=== PATIENT | female | born 1965 | race Caucasian/White ===

== ENCOUNTER 2016-07-06 11:11 | Inpatient (IN) | payer OTHER ==
[2016-07-06 11:39] VITALS: BMI 22.4
--- NOTE | 2016-07-06 14:34 | HP ---
COWS - Scale Resting Pulse: 0= [place] 80 or Below Sweatin=Flushed/Facial Moisture Restless Observation: 1= Difficult to Sit Still Pupil Size: 0= Normal to Room Light Bone or Joint Aches: 2= Severe Diffuse Aches Runny Nose/ Eye Tearin= Runny Nose/Eyes GI Upset > 30mins: 2= Nausea/Diarrhea Tremor Observation: 2= Slight Tremor Visible Yawning Observation: 2= >3x During Session Anxiety or Irritability: 2=Irritable/Anxious Goose Flesh Skin: 3=Piloerection COWS Score: 18 CIWA Score - CIWA Score Nausea/Vomitin-Mild Nausea/No Vomiting Muscle Tremors: 4-Moderate,w/Arms Extend Anxiety: 4-Mod. Anxious/Guarded Agitation: 4-Moderately Restless Paroxysmal Sweats: 3 Orientation: 0-Oriented Tacttile Disturbances: 0-None Auditory Disturbances: 0-None Visual Disturbances: 0-None Headache: 1-Very Mild CIWA-Ar Total Score: 17 Admission ROS S - HPI Chief Complaint: I am here to detox. Allergies/Adverse Reactions: Allergies Allergy/AdvReac Type Severity Reaction Status Date / Time No Known Allergies Allergy Verified 07/06/16 14:01 History of Present Illness: pt is a 51yr old female with a history of heroin and alcohol dependence seeking detox for treatment. Exam Limitations: No Limitations - Ebola screening Have you traveled outside of the country in the last 21 days: No Have you had contact with anyone from an Ebola affected area: No Have you been sick,other than usual withdrawal symptoms: No Do you have a fever: No - Review of Systems Constitutional: Chills, Diaphoresis, Loss of Appetite, Night Sweats, Changes in sleep, Unintentional Wgt. Loss EENT: reports: Tearing, Nose Congestion Respiratory: reports: No Symptoms reported Cardiac: reports: No Symptoms Reported GI: reports: Diarrhea, Poor Appetite, Poor Fluid Intake, Indigestion : reports: No Symptoms Reported Musculoskeletal: reports: Back Pain, Joint Pain, Muscle Pain Integumentary: reports: Flushing Neuro: reports: Headache, Tingling, Tremors Endocrine: reports: Excessive Sweating, Flushing Hematology: reports: Anemia Psychiatric: reports: Judgement Intact, Mood/Affect Appropiate, Orientated x3, Agitated, Anxious Other Systems: Reviewed and Negative Patient History - Patient Medical History Hx Anemia: No Hx Asthma: No Hx Chronic Obstructive Pulmonary Disease (COPD): No Hx Cancer: No Hx Cardiac Disorders: No Hx Congestive Heart Failure: No Hx Hypertension: No Hx Hypercholesterolemia: No Hx Pacemaker: No HX Cerebrovascular Accident: No Hx Seizures: No Hx Dementia: No Hx Diabetes: No Hx Gastrointestinal Disorders: No Hx Liver Disease: No Hx Genitourinary Disorders: No Hx Sexually Transmitted Disorders: No Hx Renal Disease (ESRD): No Hx Thyroid Disease: No Hx Human Immunodeficiency Virus (HIV): Yes (1995 currently taking her medication ) Hx Hepatitis C: Yes Hx Depression: Yes Hx Suicide Attempt: No Hx Bipolar Disorder: No Hx Schizophrenia: No - Patient Surgical History Past Surgical History: No Hx Neurologic Surgery: No Hx Cataract Extraction: No Hx Cardiac Surgery: No Hx Lung Surgery: No Hx Breast Surgery: No Hx Breast Biopsy: No Hx Abdominal Surgery: No Hx Appendectomy: No Hx Cholecystectomy: No Hx Genitourinary Surgery: No Hx Section: No Hx Orthopedic Surgery: No Hx Hysterectomy: No Anesthesia Reaction: No - PPD History Previous Implant?: Yes Documented Results: Negative w/o proof Implanted On Prior R Admission?: Yes Results: 0 mm PPD to be Administered?: Yes - Reproductive History Last Menstrual Period: 11/09/11 Patient : No - Smoking Cessation Smoking history: Current every day smoker Have you smoked in the past 12 months: Yes Aproximately how many cigarettes per day: 10 Cigars Per Day: 0 Hx Chewing Tobacco Use: No Initiated information on smoking cessation: Yes 'Breaking Loose' booklet given: 07/06/16 - Substance & Tx. History Hx Alcohol Use: Yes Hx Substance Use: Yes Substance Use Type: Alcohol, Heroin, Tranquilizers - Substances Abused Heroin Route: Injection Frequency: Daily Amount used: 4 bags Age of first use: 30 Date of Last Use: 07/06/16 Crack Route: Smoking Frequency: Daily Amount used: $20-40 Age of first use: 30 Date of Last Use: 07/05/16 Alcohol-beer/vodka Route: Oral Frequency: Daily Amount used: 10 (22 oz.)/1 pt. Age of first use: 13 Date of Last Use: 07/06/16 Family Disease History - Family Disease History Family Disease History: Other: Father (alcohol), Mother (heroin) Admission Physical Exam [facility] - Vital Signs Vital Signs: Vital Signs - 24 hr 07/06/16 11:31 Temperature 98.6 F Pulse Rate 66 Respiratory 18 Rate Blood Pressure 97/67 - Physical General Appearance: Yes: Appropriately Dressed, Moderate Distress, Thin, Tremorous, Irritable, Sweating, Anxious HEENTM: Yes: Normal Voice, Nasal Congestion, Rhinorrhea Respiratory: Yes: Lungs Clear, Normal Breath Sounds, No Respiratory Distress Neck: Yes: No masses,lesions,Nodules Breast: Yes: Within Normal Limits Cardiology: Yes: Regular Rhythm, Regular Rate, S1, S2 Abdominal: Yes: Normal Bowel Sounds, Soft Genitourinary: Yes: Within Normal Limits Back: Yes: Normal Inspection Musculoskeletal: Yes: full range of Motion Extremities: Yes: Normal Capillary Refill, Non-Tender, Tremors Neurological: Yes: Fully Oriented, Alert, Normal Mood/Affect Integumentary: Yes: Normal Color, Diaphoresis, Track [place] Lymphatic: Yes: Within Normal Limits - Diagnostic (1) Cocaine dependence Current Visit: Yes Status: Chronic (2) Alcohol dependence with withdrawal Current Visit: Yes Status: Chronic Qualifiers: Complication of substance-induced condition: uncomplicated Qualified Code(s): F10.230 - Alcohol dependence with withdrawal, uncomplicated (3) Hepatitis C Current Visit: Yes Status: Chronic Qualifiers: Viral hepatitis chronicity: chronic Hepatic coma status: without hepatic coma Qualified Code(s): B18.2 - Chronic viral hepatitis C (4) Nicotine dependence Current Visit: Yes Status: Chronic (5) Opioid dependence, uncomplicated Current Visit: Yes Status: Chronic (6) HIV disease Current Visit: Yes Status: Chronic Comment: currently on antiviral medication; pt did not bring them she has at home. Cleared for Admission [facility] - Detox or Rehab [facility] Level of Care: Medically Managed Detox Regimen/Protocol: Methadone/Librium [facility] Breath Alcohol Content Breath Alcohol Content: 0.007 Urine Pregancy Test - Result Urine Test Results: Negative- NO Line Present Urine Drug Screen - Results Drug Screen Negative: No Urine Drug Screen Results: CAROLYN-Cocaine, OPI-Opiates
[2016-07-06] MEDS ORDERED: guaiFENesin/D-METHORPHAN HB 10 ML UNIT-DOSE CUPS PO PRN (14:39)
[2016-07-06] MEDS ORDERED: ACETAMINOPHEN 325 MG TABLET (FP) PO PRN (14:39)
[2016-07-06] MEDS ORDERED: MAGNESIUM CITRATE 300 ML BOTTLE PO PRN (14:39)
[2016-07-06] MEDS ORDERED: IBUPROFEN 400 MG TABLET (FP) PO PRN (14:39)
[2016-07-06] MEDS ORDERED: MAG HYDROX/AL HYDROX/SIMETH 30 ML UNIT-DOSE CUP PO PRN (14:39)
[2016-07-06] MEDS ORDERED: chlordiazePOXIDE HCL 25 MG CAPSULE PO PRN (14:39)
[2016-07-06] MEDS ORDERED: MAGNESIUM HYDROX 2400MG/30ML ORAL SUSPENSION 30 ML CUP PO PRN (14:39)
[2016-07-06] MEDS ORDERED: MENTHOL/PHENOL 1 EACH UD MM PRN (14:39)
[2016-07-06] MEDS ORDERED: diphenhydrAMINE HCL 50 MG CAPSULE PO PRN (14:39)
[2016-07-06] MEDS ORDERED: NICOTINE POLACRILEX 4 MG GUM BUC PRN (14:39)
[2016-07-06] MEDS ORDERED: hydrOXYzine PAMOATE 50 MG CAPSULE (FP) PO PRN (14:39)
[2016-07-06] MEDS ORDERED: LOPERAMIDE HCL 2 MG CAPSULE PO PRN (14:39)
[2016-07-06] MEDS ORDERED: P-EPHED 60MG/TRIPROLIDI 2.5MG TABLET PO PRN (14:39)
[2016-07-06] MEDS ORDERED: chlordiazePOXIDE HCL 25 MG CAPSULE PO ONE (15:15)
[2016-07-06] MEDS ORDERED: METHADONE HCL 10 MG TABLET (FOR DETOX USE ONLY) PO ONE ×2 (15:16→23:00)
--- NOTE | 2016-07-06 15:57 | EKG ---
Test Reason : Blood Pressure : / mmHG Vent. Rate : 062 BPM Atrial Rate : 062 BPM P-R Int : 150 ms QRS Dur : 086 ms QT Int : 416 ms P-R-T Axes : 062 050 056 degrees QTc Int : 422 ms NORMAL SINUS RHYTHM WITH SINUS ARRHYTHMIA NORMAL ECG NO PREVIOUS ECGS AVAILABLE Confirmed by KERMIT RODRIGUEZ MD ([id number]) on 07/06/2016 3:56:59 PM Referred By: Confirmed By:KERMIT RODRIGUEZ MD
[2016-07-06] MEDS: chlordiazePOXIDE HCL 25 MG CAPSULE PO SCH ×2 (17:50→22:20)
[2016-07-06 18:40] LABS: URINE APPEARANCE SLCLOUDY; URINE BILIRUBIN NEGATIVE (NEGATIVE); URINE BLOOD NEGATIVE (NEGATIVE); URINE COLOR YELLOW; URINE GLUCOSE (UA) NEGATIVE (NEGATIVE); URINE KETONE NEGATIVE (NEGATIVE); URINE NITRITE NEGATIVE (NEGATIVE); URINE PROTEIN NEGATIVE (NEGATIVE); URINE UROBILINOGEN NEGATIVE E.U./dl (0.2-1.0)
[2016-07-06 18:46] LABS: URINE LEUK ESTERASE 2+ (NEGATIVE)
[2016-07-06 19:05] LABS: URINE MUCUS RARE; URINE RBC 7 /hpf (0-3); URINE WBC 63 /hpf (3-5)
[2016-07-06] MEDS: THIAMINE HCL 100 MG TABLET (FP) PO SCH (22:20)
[2016-07-07] MEDS: chlordiazePOXIDE HCL 25 MG CAPSULE PO SCH ×4 (05:53→22:26)
[2016-07-07] MEDS ORDERED: ATAZANAVIR SO4 300 MG CAPSULE PO SCH (08:00)
[2016-07-07] MEDS ORDERED: EMTRICITABINE 200MG/TENOFOVIR 300MG PO SCH (08:00)
[2016-07-07] MEDS ORDERED: RITONAVIR 100 MG TABLET PO SCH (08:00)
[2016-07-07 09:57] LABS: MCH 29.5 pg (25.7-33.7); MCHC 32.3 g/dl (32.0-36.0); MEAN CELL VOLUME 91.2 fl (80-96); MEAN PLT VOLUME 10.4 fl (7.5-11.1); PLATELET COUNT 134 K/MM3 (134-434); RDW 14.2 % (11.6-15.6); WHITE BLOOD COUNT 3.9 K/mm3 (4.0-10.0)
[2016-07-07] MEDS ORDERED: METHADONE HCL 10 MG TABLET (FOR DETOX USE ONLY) PO SCH (10:00)
[2016-07-07 10:26] LABS: ALBUMIN 3.2 g/dl (3.4-5.0); ANION GAP 7 (8-16); BILIRUBIN,TOTAL 0.6 mg/dL (0.2-1.0); CO2 29 mmol/L (21-32); GLUCOSE,RANDOM 85 mg/dL (74-106); SGOT/AST 90 U/L (15-37); SGPT/ALT 57 U/L (12-78); TOT PROT 8.7 g/dl (6.4-8.2)
[2016-07-07] MEDS: RITONAVIR 100 MG TABLET PO SCH (10:27)
[2016-07-07] MEDS: NICOTINE 21 MG/24 HOURS TOPICAL PATCH TD SCH (10:27)
[2016-07-07] MEDS: PRENATAL VITAMINS W/ FOLIC ACID TABLET (FP) PO SCH (10:28)
[2016-07-07] MEDS: EMTRICITABINE 200MG/TENOFOVIR 300MG PO SCH (10:28)
[2016-07-07] MEDS: ATAZANAVIR SO4 300 MG CAPSULE PO SCH (10:28)
[2016-07-07 10:29] LABS: ALK PHOS 98 U/L (45-117); CALCIUM 8.9 mg/dL (8.5-10.1); CREATININE 0.8 mg/dL (0.55-1.02)
--- NOTE | 2016-07-07 10:56 | PN ---
[facility] CIWA - CIWA Score Nausea/Vomitin-No Nausea/No Vomiting Muscle Tremors: 4-Moderate,w/Arms Extend Anxiety: 3 Agitation: 4-Moderately Restless Paroxysmal Sweats: 3 Orientation: 0-Oriented Tacttile Disturbances: 0-None Auditory Disturbances: 0-None Visual Disturbances: 0-None Headache: 1-Very Mild CIWA-Ar Total Score: 15 [facility] COWS - Scale Resting Pulse: 0= [place] 80 or Below Sweatin=Flushed/Facial Moisture Restless Observation: 1= Difficult to Sit Still Pupil Size: 0= Normal to Room Light Bone or Joint Aches: 2= Severe Diffuse Aches Runny Nose/ Eye Tearin= Nasal Congestion GI Upset > 30mins: 1= Stomach Cramp Tremor Observation of Outstretched Hands: 2= Slight Tremor Visible Yawning Observation: 2= >3x During Session Anxiety or Irritability: 2=Irritable/Anxious Goose Flesh Skin: 3=Piloerection COWS Score: 16 S Progress Note (SOAP) Subjective: tired sweats shakes chills interrupted sleep body aches Objective: 07/07/16 10:55 Vital Signs Temperature 97.5 F L 07/07/16 10:00 Pulse Rate 64 07/07/16 10:00 Respiratory Rate 18 07/07/16 10:00 Blood Pressure 107/80 07/07/16 10:00 O2 Sat by Pulse Oximetry (%) Laboratory Tests 07/06/16 07/07/16 07/07/16 13:00 06:20 06:20 WBC 3.9 L RBC 4.15 Hgb 12.2 D Hct 37.9 MCV 91.2 MCHC 32.3 RDW 14.2 Plt Count 134 MPV 10.4 Sodium 138 Potassium 4.7 Chloride 102 Carbon Dioxide 29 Anion Gap 7 L BUN 6 L D Creatinine 0.8 Creat Clearance w eGFR > 60 Random Glucose 85 Calcium 8.9 Total Bilirubin 0.6 D AST 90 H D ALT 57 D Alkaline Phosphatase 98 D Total Protein 8.7 H Albumin 3.2 L D Urine Color Yellow Urine Appearance Slcloudy Urine pH 5.0 D Ur Specific [place] 1.012 Urine Protein Negative Urine Glucose (UA) Negative Urine Ketones Negative Urine Blood Negative Urine Nitrite Negative Urine Bilirubin Negative Urine Urobilinogen Negative Ur Leukocyte Esterase 2+ H D Urine RBC 7 Urine WBC 63 Ur Epithelial Cells Moderate Urine Mucus Rare awake/alert lying in bed no acute distress Assessment: 07/07/16 10:56 withdrawal sx Plan: continue detox increase fluids
--- NOTE | 2016-07-07 16:33 | CONSULT ---
[facility] Psychiatric Consult - Data Date of interview: 07/07/16 Admission source: [facility] Identifying data: Readmission to [facility] for this 51 y/o female seeking detox treatment for heroin,cocaine (crack) and alcohol dependence.Patient is single without children,domiciled,unemployed and supported on [facility] benefits. Substance Abuse History: - Smoking Cessation. Smoking history: Current every day smoker. Have you smoked in the past 12 months: Yes. Aproximately how many cigarettes per day: 10. Cigars Per Day: 0. Hx Chewing Tobacco Use: No. Initiated information on smoking cessation: Yes. 'Breaking Loose' booklet given : 07/06/16. - Substance & Tx. History. Hx Alcohol Use: Yes. Hx Substance Use : Yes. Substance Use Type: Alcohol, Heroin, Tranquilizers. - Substances Abused. Heroin. Route: Injection. Frequency: Daily. Amount used: 4 bags. Age of first use: 30. Date of Last Use: 07/06/16. Crack. Route: Smoking. Frequency: Daily. Amount used: $20-40. Age of first use: 30. Date of Last Use: 07/05/16. Alcohol-beer/vodka. Route: Oral. Frequency: Daily. Amount used: 10 (22 oz.)/1 pt. Age of first use: 13. Date of Last Use: 07/06. Confirmed by patient. Medical History: HIV infection since 1995 (on ART agents) and hepatitis C. Psychiatric History: Treated for many years under the diagnosis of MDD but never hospitalized.Ms Hood used to attend the [facility] clinic until her transfer to a new venue,the [facility],in the [place].Prescribed lexapro 20 mg/day.Patient denies history of suicide attempts. Physical/Sexual Abuse/Trauma History: Patient denies. Additional Comment: Urine Drug Screen Results: CAROLYN-Cocaine, OPI-Opiates.Noted. Mental Status Exam - Mental Status Exam Alert and Oriented to: Time, Place, Person Cognitive Function: Good Patient Appearance: Well Groomed Mood: Hopeful, Euthymic Affect: Appropriate, Normal Range Patient Behavior: Appropriate, Cooperative Speech Pattern: Clear, Appropriate Voice Loudness: Normal Thought Process: Goal Oriented Thought Disorder: Not Present Hallucinations: Denies Suicidal Ideation: Denies Homicidal Ideation: Denies Insight/Judgement: Fair Sleep: Poorly, Difficulty falling asleep Appetite: Good Muscle strength/Tone: Normal Gait/Station: Normal Psychiatric Findings - Problem List ([place] 1, 2,3) (1) Alcohol dependence with withdrawal Current Visit: Yes Status: Acute Qualifiers: Complication of substance-induced condition: uncomplicated Qualified Code(s): F10.230 - Alcohol dependence with withdrawal, uncomplicated (2) Cocaine dependence Current Visit: Yes Status: Acute (3) Opioid dependence, uncomplicated Current Visit: Yes Status: Acute (4) Nicotine dependence Current Visit: Yes Status: Acute (5) MDD (major depressive disorder) Current Visit: Yes Status: Chronic (6) HIV disease Current Visit: Yes Status: Chronic Comment: currently on antiviral medication; pt did not bring them she has at home. (7) Hepatitis C Current Visit: Yes Status: Chronic Qualifiers: Viral hepatitis chronicity: chronic Hepatic coma status: without hepatic coma Qualified Code(s): B18.2 - Chronic viral hepatitis C (8) h/o herpes genital Current Visit: Yes Status: Chronic (9) Insomnia Current Visit: Yes Status: Acute - Initial Treatment Plan Initial Treatment Plan: Psychoeducation.Detoxification.Lexapro 20 mg po daily.Side effects/benefits explained to patient.She is in agreement with this careplan.Observation.
[2016-07-07 18:52] LABS: URINE APPEARANCE CLEAR; URINE BILIRUBIN NEGATIVE (NEGATIVE); URINE BLOOD NEGATIVE (NEGATIVE); URINE COLOR LTYELLOW; URINE GLUCOSE (UA) NEGATIVE (NEGATIVE); URINE KETONE NEGATIVE (NEGATIVE); URINE NITRITE NEGATIVE (NEGATIVE); URINE PROTEIN NEGATIVE (NEGATIVE); URINE UROBILINOGEN NEGATIVE E.U./dl (0.2-1.0)
[2016-07-07 19:20] LABS: URINE LEUK ESTERASE 2+ (NEGATIVE)
[2016-07-07 19:22] LABS: URINE MUCUS RARE; URINE RBC 7 /hpf (0-3); URINE WBC 14 /hpf (3-5)
[2016-07-07] MEDS: ZOLPIDEM TARTRATE 5 MG TABLET PO PRN (22:26)
[2016-07-07] MEDS: THIAMINE HCL 100 MG TABLET (FP) PO SCH (22:26)
[2016-07-08] MEDS: chlordiazePOXIDE HCL 25 MG CAPSULE PO SCH ×2 (05:51→10:05)
[2016-07-08] MEDS: ATAZANAVIR SO4 300 MG CAPSULE PO SCH (10:03)
[2016-07-08] MEDS: NICOTINE 21 MG/24 HOURS TOPICAL PATCH TD SCH (10:03)
[2016-07-08] MEDS: METHADONE HCL 5 MG TABLET (FOR DETOX USE ONLY) PO SCH (10:03)
[2016-07-08] MEDS: PRENATAL VITAMINS W/ FOLIC ACID TABLET (FP) PO SCH (10:03)
[2016-07-08] MEDS: ESCITALOPRAM OXALATE 20 MG TABLET (FP) PO SCH (10:03)
[2016-07-08] MEDS: RITONAVIR 100 MG TABLET PO SCH (10:04)
[2016-07-08] MEDS: EMTRICITABINE 200MG/TENOFOVIR 300MG PO SCH (10:04)
[2016-07-08] MEDS ORDERED: LIDOCAINE 5% TOPICAL PATCH TP ONE (11:46)
--- NOTE | 2016-07-08 11:46 | PN ---
[facility] CIWA - CIWA Score Nausea/Vomitin Muscle Tremors: 2 Anxiety: 3 Agitation: 2 Paroxysmal Sweats: 3 Orientation: 0-Oriented Tacttile Disturbances: 2-Mild Itch/Numbness/Burn Auditory Disturbances: 0-None Visual Disturbances: 0-None Headache: 0-None Present CIWA-Ar Total Score: 14 S COWS - Scale Resting Pulse: 0= [place] 80 or Below Sweatin=Flushed/Facial Moisture Restless Observation: 1= Difficult to Sit Still Pupil Size: 1= Pupils >than Normal Bone or Joint Aches: 2= Severe Diffuse Aches Runny Nose/ Eye Tearin= Nasal Congestion GI Upset > 30mins: 1= Stomach Cramp Tremor Observation of Outstretched Hands: 1= Tremor [place], Not Seen Yawning Observation: 0= None Anxiety or Irritability: 1=Feels Anxious/Irritable Goose Flesh Skin: 0=Smooth Skin COWS Score: 10 [facility] Progress Note (SOAP) Subjective: tired, sweaty, nausea, lbp Objective: 07/08/16 11:44 Vital Signs Temperature 98.1 F 07/08/16 10:18 Pulse Rate 77 07/08/16 10:18 Respiratory Rate 18 07/08/16 10:18 Blood Pressure 95/63 07/08/16 10:18 O2 Sat by Pulse Oximetry (%) Laboratory Tests 07/06/16 07/07/16 07/07/16 13:00 06:20 06:20 WBC 3.9 L RBC 4.15 Hgb 12.2 D Hct 37.9 MCV 91.2 MCHC 32.3 RDW 14.2 Plt Count 134 MPV 10.4 Sodium 138 Potassium 4.7 Chloride 102 Carbon Dioxide 29 Anion Gap 7 L BUN 6 L D Creatinine 0.8 Creat Clearance w eGFR > 60 Random Glucose 85 Calcium 8.9 Total Bilirubin 0.6 D AST 90 H D ALT 57 D Alkaline Phosphatase 98 D Total Protein 8.7 H Albumin 3.2 L D Urine Color Yellow Urine Appearance Slcloudy Urine pH 5.0 D Ur Specific [place] 1.012 Urine Protein Negative Urine Glucose (UA) Negative Urine Ketones Negative Urine Blood Negative Urine Nitrite Negative Urine Bilirubin Negative Urine Urobilinogen Negative Ur Leukocyte Esterase 2+ H D Urine RBC 7 Urine WBC 63 Ur Epithelial Cells Moderate Urine Mucus Rare RPR Titer 07/07/16 07/07/16 06:20 17:30 WBC RBC Hgb Hct MCV MCHC RDW Plt Count MPV Sodium Potassium Chloride Carbon Dioxide Anion Gap BUN Creatinine Creat Clearance w eGFR Random Glucose Calcium Total Bilirubin AST ALT Alkaline Phosphatase Total Protein Albumin Urine Color Ltyellow Urine Appearance Clear Urine pH 6.0 Ur Specific [place] 1.006 Urine Protein Negative Urine Glucose (UA) Negative Urine Ketones Negative Urine Blood Negative Urine Nitrite Negative Urine Bilirubin Negative Urine Urobilinogen Negative Ur Leukocyte Esterase 2+ H Urine RBC 7 Urine WBC 14 Ur Epithelial Cells Few Urine Mucus Rare RPR Titer Nonreactive pt aox3 in nad lying in bed . Assessment: 07/08/16 11:45 withdrawal sx's lbp Plan: cont. detox increase fluids motrin ptrn lidocaine patch
[2016-07-08] MEDS: chlordiazePOXIDE 5 MG CAPSULE PO SCH ×2 (17:27→22:20)
[2016-07-08] MEDS: THIAMINE HCL 100 MG TABLET (FP) PO SCH (22:20)
[2016-07-08] MEDS: ZOLPIDEM TARTRATE 5 MG TABLET PO PRN (22:21)
[2016-07-09] MEDS: chlordiazePOXIDE 5 MG CAPSULE PO SCH ×2 (05:09→10:42)
[2016-07-09] MEDS: ESCITALOPRAM OXALATE 20 MG TABLET (FP) PO SCH (10:41)
[2016-07-09] MEDS: PRENATAL VITAMINS W/ FOLIC ACID TABLET (FP) PO SCH (10:41)
[2016-07-09] MEDS: NICOTINE 21 MG/24 HOURS TOPICAL PATCH TD SCH (10:42)
[2016-07-09] MEDS: METHADONE HCL 5 MG TABLET (FOR DETOX USE ONLY) PO SCH (10:42)
[2016-07-09] MEDS: ATAZANAVIR SO4 300 MG CAPSULE PO SCH (10:42)
[2016-07-09] MEDS: RITONAVIR 100 MG TABLET PO SCH (10:43)
[2016-07-09] MEDS: EMTRICITABINE 200MG/TENOFOVIR 300MG PO SCH (10:43)
[2016-07-09] MEDS: LIDOCAINE 5% TOPICAL PATCH TP SCH (10:46)
--- NOTE | 2016-07-09 10:47 | PN ---
S Progress Note (SOAP) Subjective: ALERT,IRRITABLE,ANXIOUS,PAIN IN THE BODY AND BACK,TREMOR Objective: 07/09/16 10:45 Vital Signs Temperature 98.1 F 07/09/16 10:15 Pulse Rate 73 07/09/16 10:15 Respiratory Rate 18 07/09/16 10:15 Blood Pressure 98/59 07/09/16 10:15 O2 Sat by Pulse Oximetry (%) EKG NSR WITH SINUS ARRHYTHMIA Laboratory Last Values WBC 3.9 K/mm3 (4.0-10.0) L 07/07/16 06:20 RBC 4.15 M/mm3 (3.60-5.2) 07/07/16 06:20 Hgb 12.2 GM/dL (10.7-15.3) D 07/07/16 06:20 Hct 37.9 % (32.4-45.2) 07/07/16 06:20 MCV 91.2 fl (80-96) 07/07/16 06:20 MCHC 32.3 g/dl (32.0-36.0) 07/07/16 06:20 RDW 14.2 % (11.6-15.6) 07/07/16 06:20 Plt Count 134 K/MM3 (134-434) 07/07/16 06:20 MPV 10.4 fl (7.5-11.1) 07/07/16 06:20 Sodium 138 mmol/L (136-145) 07/07/16 06:20 Potassium 4.7 mmol/L (3.5-5.1) 07/07/16 06:20 Chloride 102 mmol/L (98-107) 07/07/16 06:20 Carbon Dioxide 29 mmol/L (21-32) 07/07/16 06:20 Anion Gap 7 (8-16) L 07/07/16 06:20 BUN 6 mg/dL (7-18) L D 07/07/16 06:20 Creatinine 0.8 mg/dL (0.55-1.02) 07/07/16 06:20 Creat Clearance w eGFR > 60 (>60) 07/07/16 06:20 Random Glucose 85 mg/dL (74-106) 07/07/16 06:20 Calcium 8.9 mg/dL (8.5-10.1) 07/07/16 06:20 Total Bilirubin 0.6 mg/dL (0.2-1.0) D 07/07/16 06:20 AST 90 U/L (15-37) H D 07/07/16 06:20 ALT 57 U/L (12-78) D 07/07/16 06:20 Alkaline Phosphatase 98 U/L (45-117) D 07/07/16 06:20 Total Protein 8.7 g/dl (6.4-8.2) H 07/07/16 06:20 Albumin 3.2 g/dl (3.4-5.0) L D 07/07/16 06:20 Urine Color [place] 07/07/16 17:30 Urine Appearance Clear 07/07/16 17:30 Urine pH 6.0 (5.0-8.0) 07/07/16 17:30 Ur Specific [place] 1.006 (1.001-1.035) 07/07/16 17:30 Urine Protein Negative (NEGATIVE) 07/07/16 17:30 Urine Glucose (UA) Negative (NEGATIVE) 07/07/16 17:30 Urine Ketones Negative (NEGATIVE) 07/07/16 17:30 Urine Blood Negative (NEGATIVE) 07/07/16 17:30 Urine Nitrite Negative (NEGATIVE) 07/07/16 17:30 Urine Bilirubin Negative (NEGATIVE) 07/07/16 17:30 Urine Urobilinogen Negative E.U./dl (0.2-1.0) 07/07/16 17:30 Ur Leukocyte Esterase 2+ (NEGATIVE) H 07/07/16 17:30 Urine RBC 7 /hpf (0-3) 07/07/16 17:30 Urine WBC 14 /hpf (3-5) 07/07/16 17:30 Ur Epithelial Cells Few /hpf (FEW) 07/07/16 17:30 Urine Mucus Rare 07/07/16 17:30 RPR Titer Nonreactive (NONREACTIVE) 07/07/16 06:20 Assessment: 07/09/16 10:46 WITHDRAWAL SYMPTOM Plan: CONTINUE DETOX,ENCOURAGE ORAL FLUID,REPEAT UA
[2016-07-09 16:49] LABS: URINE APPEARANCE CLEAR; URINE BILIRUBIN NEGATIVE (NEGATIVE); URINE BLOOD NEGATIVE (NEGATIVE); URINE COLOR YELLOW; URINE GLUCOSE (UA) NEGATIVE (NEGATIVE); URINE KETONE NEGATIVE (NEGATIVE); URINE NITRITE NEGATIVE (NEGATIVE); URINE PROTEIN NEGATIVE (NEGATIVE); URINE UROBILINOGEN NEGATIVE E.U./dl (0.2-1.0)
[2016-07-09] MEDS: chlordiazePOXIDE HCL 10 MG CAPSULE PO SCH ×2 (17:23→22:49)
[2016-07-09 17:47] LABS: URINE LEUK ESTERASE 1+ (NEGATIVE)
[2016-07-09 18:01] LABS: URINE RBC <1 /hpf (0-3); URINE WBC 14 /hpf (3-5)
[2016-07-09] MEDS: THIAMINE HCL 100 MG TABLET (FP) PO SCH (22:49)
[2016-07-10] MEDS: chlordiazePOXIDE HCL 10 MG CAPSULE PO SCH ×2 (05:25→10:26)
[2016-07-10] MEDS ORDERED: METHADONE HCL 10 MG TABLET (FOR DETOX USE ONLY) PO SCH (10:00)
[2016-07-10] MEDS: ESCITALOPRAM OXALATE 20 MG TABLET (FP) PO SCH (10:25)
[2016-07-10] MEDS: PRENATAL VITAMINS W/ FOLIC ACID TABLET (FP) PO SCH (10:25)
[2016-07-10] MEDS: LIDOCAINE 5% TOPICAL PATCH TP SCH (10:26)
[2016-07-10] MEDS: ATAZANAVIR SO4 300 MG CAPSULE PO SCH (10:26)
[2016-07-10] MEDS: NICOTINE 21 MG/24 HOURS TOPICAL PATCH TD SCH (10:26)
[2016-07-10] MEDS: RITONAVIR 100 MG TABLET PO SCH (10:26)
[2016-07-10] MEDS: EMTRICITABINE 200MG/TENOFOVIR 300MG PO SCH (10:27)
--- NOTE | 2016-07-10 10:43 | PN ---
S Progress Note (SOAP) Subjective: ALERT,IRRITABLE,INTERRUPTED SLEEP Objective: 07/10/16 10:42 Vital Signs Temperature 97.7 F 07/10/16 09:52 Pulse Rate 66 07/10/16 09:52 Respiratory Rate 16 07/10/16 09:52 Blood Pressure 90/57 07/10/16 09:52 O2 Sat by Pulse Oximetry (%) Assessment: 07/10/16 10:42 WITHDRAWAL SYMPTOM Plan: CONTINUE DETOX,DISCHARGE IN AM
[2016-07-10] MEDS: THIAMINE HCL 100 MG TABLET (FP) PO SCH (22:33)
[2016-07-11 05:50] VITALS: BP 124/90; PULSE 74; TEMP 96.1
[2016-07-11] MEDS ORDERED: METHADONE HCL 5 MG TABLET (FOR DETOX USE ONLY) PO SCH (06:00)
--- NOTE | 2016-07-11 09:13 | PN ---
S Progress Note (SOAP) Subjective: ALERT,NO COMPLAINT Objective: 07/11/16 09:12 Vital Signs Temperature 96.1 F L 07/11/16 05:48 Pulse Rate 74 07/11/16 05:48 Respiratory Rate 18 07/11/16 05:48 Blood Pressure 124/90 07/11/16 05:48 O2 Sat by Pulse Oximetry (%) Assessment: 07/11/16 09:12 DETOX COMPLETED,NO WITHDRAWAL SYMPTOM Plan: DISCHARGE TODAY,FOLLOW UP WITH [facility] ARRANGEMENT
--- NOTE | 2016-07-11 09:16 | DS ---
[facility] Detox Discharge Summary Admission Date: 07/06/16 Discharge Date: 07/11/16 - History Present History: Alcohol Dependence, Cocaine Dependence, Opioid Dependence Additional Comments: FOLLOW UP WITH [facility] Pertinent Past History: HEPATITIS C HIV NICOTINE DEPENDENCE - Physical Exam Results Vital Signs: Vital Signs Temperature 96.1 F L 07/11/16 05:48 Pulse Rate 74 07/11/16 05:48 Respiratory Rate 18 07/11/16 05:48 Blood Pressure 124/90 07/11/16 05:48 O2 Sat by Pulse Oximetry (%) - Treatment Hospital Course: Detox Protocol Followed, Detoxed Safely, Responded well, Discharged Condition Good, Rehab Referral Accepted Patient has Accepted a Rehab Referral to: [facility] - Medication Discharge Medications: Ambulatory Orders Atazanavir [Reyataz -] 300 mg PO DAILY 12/15/11 Emtricitabine/Tenofovir [Truvada 200 mg-300 mg Tablet] 1 each PO DAILY 12/15/11 Ritonavir [Norvir -] 100 mg PO DAILY 12/15/11 Escitalopram Oxalate [Lexapro -] 20 mg PO DAILY #30 tablet 03/05/15 Escitalopram Oxalate [Lexapro -] 20 mg PO DAILY #30 tablet 07/10/16 - Diagnosis (1) Alcohol dependence with withdrawal Current Visit: Yes Status: Acute Qualifiers: Complication of substance-induced condition: uncomplicated Qualified Code(s): F10.230 - Alcohol dependence with withdrawal, uncomplicated (2) Cocaine dependence Current Visit: Yes Status: Acute (3) Insomnia Current Visit: Yes Status: Acute (4) Nicotine dependence Current Visit: Yes Status: Acute (5) Opioid dependence, uncomplicated Current Visit: Yes Status: Acute (6) HIV disease Current Visit: Yes Status: Chronic (7) Hepatitis C Current Visit: Yes Status: Chronic Qualifiers: Viral hepatitis chronicity: chronic Hepatic coma status: without hepatic coma Qualified Code(s): B18.2 - Chronic viral hepatitis C (8) MDD (major depressive disorder) Current Visit: Yes Status: Chronic - AMA Did Patient Leave Against Medical Advice: No
[2016-07-11] MEDS: RITONAVIR 100 MG TABLET PO SCH (09:50)
[2016-07-11] MEDS: PRENATAL VITAMINS W/ FOLIC ACID TABLET (FP) PO SCH (09:50)
[2016-07-11] MEDS: ESCITALOPRAM OXALATE 20 MG TABLET (FP) PO SCH (09:50)
[2016-07-11] MEDS: ATAZANAVIR SO4 300 MG CAPSULE PO SCH (09:50)
[2016-07-11] MEDS: EMTRICITABINE 200MG/TENOFOVIR 300MG PO SCH (09:50)
== END 2016-07-11 10:16 | disposition other institution (70) | DRG 773 ==
LOC: YASAS 11:11 → Y6N 14:39
PROVIDERS: ADMIT Internal Medicine; ATTEND Internal Medicine
PROC: HZ2ZZZZ Detoxification Services for Substance Abuse Treatment (ICD-10-PCS; principal; 2016-07-06)
DX: F11.20 Opioid dependence, uncomplicated (principal); F10.230 Alcohol dependence with withdrawal, uncomplicated; F14.20 Cocaine dependence, uncomplicated; F17.210 Nicotine dependence, cigarettes, uncomplicated; F33.9 Major depressive disorder, recurrent, unspecified; G47.00 Insomnia, unspecified; Z21 Asymptomatic human immunodeficiency virus [HIV] infection status; B18.2 Chronic viral hepatitis C; I49.9 Cardiac arrhythmia, unspecified; M54.5 Low back pain; Z87.42 Personal history of other diseases of the female genital tract
CPT/HCPCS: 36415; 80053; 81003; 81015; 85027; 86593; 93005; 93010

== ENCOUNTER 2016-07-11 10:23 | Inpatient (IN) | payer OTHER ==
[2016-07-11 11:19] VITALS: BMI 23.7
[2016-07-11] MEDS ORDERED: MAGNESIUM CITRATE 300 ML BOTTLE PO PRN (14:10)
[2016-07-11] MEDS ORDERED: guaiFENesin/D-METHORPHAN HB 10 ML UNIT-DOSE CUPS PO PRN (14:10)
[2016-07-11] MEDS ORDERED: MAGNESIUM HYDROX 2400MG/30ML ORAL SUSPENSION 30 ML CUP PO PRN (14:10)
[2016-07-11] MEDS ORDERED: hydrOXYzine PAMOATE 50 MG CAPSULE (FP) PO PRN (14:10)
[2016-07-11] MEDS ORDERED: MAG HYDROX/AL HYDROX/SIMETH 30 ML UNIT-DOSE CUP PO PRN (14:10)
[2016-07-11] MEDS ORDERED: ACETAMINOPHEN 325 MG TABLET (FP) PO PRN (14:10)
[2016-07-11] MEDS ORDERED: MENTHOL/PHENOL 1 EACH UD MM PRN (14:10)
[2016-07-11] MEDS ORDERED: P-EPHED 60MG/TRIPROLIDI 2.5MG TABLET PO PRN (14:10)
[2016-07-11] MEDS ORDERED: diphenhydrAMINE HCL 50 MG CAPSULE PO PRN (14:10)
[2016-07-11] MEDS ORDERED: IBUPROFEN 400 MG TABLET (FP) PO PRN (14:10)
[2016-07-11] MEDS ORDERED: LOPERAMIDE HCL 2 MG CAPSULE PO PRN (14:10)
--- NOTE | 2016-07-11 14:13 | HP ---
[facility] Rehab Assess/Revision - Admission History Admitted to Rehab from: [facility] [place] Date of Admission to Rehab: 07/11/16 - Vital signs Vital Signs: Vital Signs Period Temp Pulse Resp BP Sys/Saul Pulse Ox Last 24 Hr 97 F-97.1 F 68-68 16-16 94-94/58-58 - Findings Detox History & Physical reviewed: Yes Concur with findings: Yes Comments/Additional Findings: for rehab as protocol
[2016-07-11] MEDS: THIAMINE HCL 100 MG TABLET (FP) PO SCH (21:22)
[2016-07-12 06:49] VITALS: PULSE 60
[2016-07-12] MEDS: ATAZANAVIR SO4 300 MG CAPSULE PO SCH (10:04)
[2016-07-12] MEDS: PRENATAL VITAMINS W/ FOLIC ACID TABLET (FP) PO SCH (10:04)
[2016-07-12] MEDS: RITONAVIR 100 MG TABLET PO SCH (10:07)
[2016-07-12] MEDS: EMTRICITABINE 200MG/TENOFOVIR 300MG PO SCH (10:07)
--- NOTE | 2016-07-12 10:20 | HP ---
Psychiatrist Admission - Data Date of interview: 07/12/16 Admission source: [address] [place] [address] Identifying data: This is the third admission to [address] [place] [address] for this 51 years old female childless,unemployed, supported by [facility],domiciled,resides in [facility]. Medical History: Significant for HEP C,HIV+ dx in 1995,Herpes genital. Psychiatric History: Patient has been suffering from depressed mood,anxiety since her childhood.She was dx with Depression later in her life in 1995 when she addressed her issues to private psychiatrist .Patient was placed on Zoloft with good response. She was on different antidepressants including Celexa,Prozac ,Paxil.Denies psychiatric admissions,no suicidal attempts.Currently she is attending [facility].Meds:Lexapro 20 mg po daily. Physical/Sexual Abuse/Trauma History: denies Vital Signs: Vital Signs - 24 hr 07/11/16 07/11/16 07/12/16 10:55 11:05 03:30 Temperature 97.1 F L 97 F L Pulse Rate 68 68 Respiratory 16 16 16 Rate Blood Pressure 94/58 94/58 07/12/16 07/12/16 06:30 06:46 Temperature 97.9 F Pulse Rate 60 Respiratory 16 18 Rate Blood Pressure 90/59 Allergies/Adverse Reactions: Allergies Allergy/AdvReac Type Severity Reaction Status Date / Time No Known Allergies Allergy Verified 07/11/16 11:20 Date of last physical exam: 07/11/16 Concur with the findings of this exam: Yes - Substance Abuse/Tx History Hx Alcohol Use: Yes Hx Substance Use: Yes Substance Use Type: Alcohol, Cocaine, Heroin Hx Substance Use Treatment: Yes (completed this program in Mar 2016) - Admission Criteria Previous failed treatment: Yes Poor recovery environment: Yes Comorbidities: Yes Lacks judgement: Yes Mental Status Exam - Mental Status Exam Alert and Oriented to: Time, Place, Person Cognitive Function: Grossly Intact Patient Appearance: Unkempt Mood: Sad, Anxious Affect: Mood Congruent, Labile Patient Behavior: Cooperative Speech Pattern: Clear Voice Loudness: Normal Thought Process: Goal Oriented Thought Disorder: Not Present Hallucinations: Denies Suicidal Ideation: Denies Homicidal Ideation: Denies Insight/Judgement: Fair Sleep: Fair Appetite: Fair, Weight loss Muscle strength/Tone: Normal Gait/Station: Normal Psychiatric Findings - Problem List ([place] 1, 2,3) (1) Alcohol dependence Current Visit: Yes Status: Chronic (2) Cocaine dependence Current Visit: Yes Status: Chronic (3) Nicotine dependence Current Visit: Yes Status: Chronic (4) Opioid dependence, uncomplicated Current Visit: Yes Status: Chronic (5) MDD (major depressive disorder), recurrent episode, moderate Current Visit: Yes Status: Chronic - Initial Treatment Plan Initial Treatment Plan: Continue Lexapro 20 mg po daily. will monitor progress.
[2016-07-12] MEDS: ESCITALOPRAM OXALATE 20 MG TABLET (FP) PO SCH (14:54)
[2016-07-12] MEDS: THIAMINE HCL 100 MG TABLET (FP) PO SCH (21:26)
[2016-07-13 06:39] VITALS: BP 94/58; TEMP 97.3
[2016-07-13] MEDS: EMTRICITABINE 200MG/TENOFOVIR 300MG PO SCH (10:04)
[2016-07-13] MEDS: RITONAVIR 100 MG TABLET PO SCH (10:04)
[2016-07-13] MEDS: ESCITALOPRAM OXALATE 20 MG TABLET (FP) PO SCH (10:04)
[2016-07-13] MEDS: PRENATAL VITAMINS W/ FOLIC ACID TABLET (FP) PO SCH (10:04)
[2016-07-13] MEDS: ATAZANAVIR SO4 300 MG CAPSULE PO SCH (10:04)
--- NOTE | 2016-08-11 11:07 | PN ---
[facility] Progress Note Note: Patient decided to sign out 07/13/16 AMA.See staff notes for details.
== END 2016-07-13 13:52 | disposition left against medical advice (07) | DRG 770 ==
LOC: YASAS 10:23 → Y3E 10:24
PROVIDERS: ADMIT Psychiatry & Neurology Psychiatry; ATTEND Psychiatry & Neurology Psychiatry
PROC: HZ42ZZZ Group Counseling for Substance Abuse Treatment, Cognitive-Behavioral (ICD-10-PCS; principal; 2016-07-13)
DX: F11.20 Opioid dependence, uncomplicated (principal); F10.20 Alcohol dependence, uncomplicated; F14.20 Cocaine dependence, uncomplicated; F17.210 Nicotine dependence, cigarettes, uncomplicated; F33.1 Major depressive disorder, recurrent, moderate

== ENCOUNTER 2018-11-17 14:42 | Inpatient (IN) | payer OTHER ==
[2018-11-17 18:52] VITALS: BMI 18.5
--- NOTE | 2018-11-17 20:36 | HP ---
CIWA Score Nausea/Vomitin Muscle Tremors: 3 Anxiety: 3 Agitation: 4-Moderately Restless Paroxysmal Sweats: No Perspiration Orientation: 0-Oriented Tacttile Disturbances: 0-None Auditory Disturbances: 0-None Visual Disturbances: 1-Very Mild Sensitivity Headache: 0-None Present CIWA-Ar Total Score: 13 - Admission Criteria OASAS Guidelines: Admission for Medically Managed Detox: Requires at least one of the followin. CIWA greater than 12 2. Seizures within the past 24 hours 3. Delirium tremens within the past 24 hours 4. Hallucinations within the past 24 hours 5. Acute intervention needed for co occurring medical disorder 6. Acute intervention needed for co occurring psychiatric disorder 7. Severe withdrawal that cannot be handled at a lower level of care (continued vomiting, continued diarrhea, abnormal vital signs) requiring intravenous medication and/or fluids 8. Patient presents the following: CIWA greater than 12 Admission Criteria Met: Admission criteria met Admission ROS BHS - HPI Chief Complaint: I WAS DYING I HAVE TO STOP DRINKING Allergies/Adverse Reactions: Allergies Allergy/AdvReac Type Severity Reaction Status Date / Time No Known Allergies Allergy Verified 11/17/18 18:38 History of Present Illness: ETOH USE SINCE AGE 3 YEARS ABSTINENCE IN 20'S CURRENTLY ON MMTP USING 2 BAGS QOD- FEELS IT IS NEEDLE COMPULSION COCAINE 20-30$ QOD ETOH 12 X 22OZ MALT LIQUOR DAILY - Ebola screening Have you traveled outside of the country in the last 21 days: No Have you had contact with anyone from an Ebola affected area: No Do you have a fever: No - Review of Systems Constitutional: Unintentional Wgt. Loss EENT: reports: No Symptoms Reported Respiratory: reports: Shortness of Breath Cardiac: reports: No Symptoms Reported GI: reports: Abdominal cramping : reports: No Symptoms Reported Musculoskeletal: reports: No Symptoms Reported Integumentary: reports: No Symptoms Reported Neuro: reports: No Symptoms reported Endocrine: reports: No Symptoms Reported Hematology: reports: No Symptoms Reported Psychiatric: reports: Depressed Patient History - Patient Medical History Hx Anemia: No Hx Asthma: No Hx Chronic Obstructive Pulmonary Disease (COPD): No Hx Cancer: No Hx Cardiac Disorders: No Hx Congestive Heart Failure: No Hx Hypertension: No Hx Hypercholesterolemia: No Hx Pacemaker: No HX Cerebrovascular Accident: No Hx Seizures: No Hx Dementia: No Hx Diabetes: No Hx Gastrointestinal Disorders: No Hx Liver Disease: No Hx Genitourinary Disorders: No Hx Sexually Transmitted Disorders: No Hx Renal Disease (ESRD): No Hx Thyroid Disease: No Hx Human Immunodeficiency Virus (HIV): Yes (1995 currently taking her medication ) Hx Hepatitis C: Yes Hx Depression: Yes (LEXAPRO 10MG OFF X 6 MOS) Hx Suicide Attempt: No Hx Bipolar Disorder: No Hx Schizophrenia: No - Patient Surgical History Past Surgical History: No Hx Neurologic Surgery: No Hx Cataract Extraction: No Hx Cardiac Surgery: No Hx Lung Surgery: No Hx Breast Surgery: No Hx Breast Biopsy: No Hx Abdominal Surgery: No Hx Appendectomy: No Hx Cholecystectomy: No Hx Genitourinary Surgery: No Hx Section: No Hx Orthopedic Surgery: No Hx Hysterectomy: No Anesthesia Reaction: No - PPD History Date: 07/08/16 Results: 0 mm - Reproductive History Last Menstrual Period: 04/21/11 - Smoking Cessation Smoking history: Current every day smoker Have you smoked in the past 12 months: Yes Aproximately how many cigarettes per day: 10 Cigars Per Day: 0 Hx Chewing Tobacco Use: No Initiated information on smoking cessation: Yes 'Breaking Loose' booklet given: 11/17/18 - Substances abused Heroin Substance route: Injection Frequency: 3-6 times per week Amount used: 2 to 3 bags Age of first use: 30 Date of last use: 11/17/18 Crack Substance route: Smoking Frequency: Daily Amount used: 20 dollars Age of first use: 30 Date of last use: 11/15/18 Alcohol Substance route: Oral Frequency: Daily Amount used: 12 of 22 ounce of malt liqour.half a pint of vodka, Age of first use: 13 Date of last use: 11/17/18 Family Disease History - Family Disease History Family Disease History: Other: Father (alcohol), Mother (heroin) Admission Physical Exam BHS - Vital Signs Vital Signs: Vital Signs - 24 hr 11/17/18 18:38 Temperature 98.5 F Pulse Rate 72 Respiratory 16 Rate Blood Pressure 88/62 L - Physical General Appearance: Yes: Disheveled, Thin, Irritable HEENTM: Yes: Other (adenbtulous) Respiratory: Yes: Within Normal Limits, Chest Non-Tender, Lungs Clear, Normal Breath Sounds Neck: Yes: Within Normal Limits, No masses,lesions,Nodules Breast: Yes: Breast Exam Deferred Cardiology: Yes: Within Normal Limits, Regular Rhythm, Regular Rate, S1, S2 Abdominal: Yes: Normal Bowel Sounds, Non Tender Back: Yes: Within Normal Limits Musculoskeletal: Yes: Within Normal Limits, full range of Motion, Gait Steady, Pelvis Stable Extremities: Yes: Within Normal Limits, Normal Capillary Refill, Normal Inspection, Normal Range of Motion, Non-Tender Neurological: Yes: 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 NML intact, Fully Oriented, Alert, Motor Strength 5/5, Normal Mood/Affect Integumentary: Yes: Within Normal Limits Lymphatic: Yes: Within Normal Limits - Diagnostic (1) Alcohol dependence with withdrawal Current Visit: Yes Status: Acute Qualifiers: Complication of substance-induced condition: uncomplicated Qualified Code(s ): F10.230 - Alcohol dependence with withdrawal, uncomplicated (2) MDD (major depressive disorder), single episode, moderate Current Visit: No Status: Acute (3) Alcohol dependence Current Visit: Yes Status: Chronic (4) Cocaine dependence Current Visit: No Status: Chronic (5) HIV disease Current Visit: Yes Status: Chronic Comment: currently on antiviral medication; pt did not bring them she has at home. (6) Hepatitis C Current Visit: Yes Status: Chronic Qualifiers: Viral hepatitis chronicity: chronic Hepatic coma status: without hepatic coma Qualified Code(s): B18.2 - Chronic viral hepatitis C (7) IV drug user Current Visit: No Status: Chronic (8) Opioid dependence on agonist therapy Current Visit: Yes Status: Chronic Cleared for Admission S - Detox or Rehab [facility] Level of Care: Medically Supervised Claeared for Rehab Admission: No Breathalyzer - Breathalyzer Breathalyzer: 0.049 Urine Drug Screen - Test Device Lot number: [id number] Expiration date: 08/08/20 - Control Is test valid?: Yes - Results Drug screen NEGATIVE: No Urine drug screen results: CAROLYN-Cocaine, MOP-Opiates, MTD-Methadone Inpatient Rehab Admission - Rehab Decision to Admit Inpatient rehab admission?: No
[2018-11-17] MEDS ORDERED: hydrOXYzine PAMOATE 25 MG CAPSULE (FP) PO PRN (20:40)
[2018-11-17] MEDS ORDERED: BISMUTH SUBSALICYLATE 524 MG/30 ML UD PO PRN (20:40)
[2018-11-17] MEDS ORDERED: MAG HYDROX/AL HYDROX/SIMETH 30 ML UNIT-DOSE CUP PO PRN (20:40)
[2018-11-17] MEDS ORDERED: MAGNESIUM CITRATE 300 ML BOTTLE PO PRN (20:40)
[2018-11-17] MEDS ORDERED: IBUPROFEN 400 MG TABLET (FP) PO PRN (20:40)
[2018-11-17] MEDS ORDERED: ACETAMINOPHEN 325 MG TABLET (FP) PO PRN ×2 (20:40)
[2018-11-17] MEDS ORDERED: chlordiazePOXIDE HCL 25 MG CAPSULE PO PRN (20:40)
[2018-11-17] MEDS ORDERED: MENTHOL/PHENOL 1 EACH UD MM PRN (20:40)
[2018-11-17] MEDS ORDERED: MAGNESIUM HYDROX 2400MG/30ML ORAL SUSPENSION 30 ML CUP PO PRN (20:40)
[2018-11-17] MEDS: METHOCARBAMOL 500 MG TABLET PO PRN (23:01)
[2018-11-17] MEDS: MELATONIN 5 MG TABLETS PO PRN (23:01)
[2018-11-17] MEDS: THIAMINE HCL 100 MG TABLET (FP) PO SCH (23:02)
[2018-11-17] MEDS: chlordiazePOXIDE HCL 25 MG CAPSULE PO SCH (23:02)
[2018-11-18] MEDS: chlordiazePOXIDE HCL 25 MG CAPSULE PO SCH ×4 (05:26→22:54)
[2018-11-18] MEDS ORDERED: METHADONE HCL 10 MG TABLET PO ONE (08:46)
[2018-11-18 10:01] LABS: HEMOGLOBIN 10.9 GM/dL (10.7-15.3); MCH 29.8 pg (25.7-33.7); MCHC 33.1 g/dl (32.0-36.0); MEAN CELL VOLUME 90.1 fl (80-96); MEAN PLT VOLUME 8.3 fl (7.5-11.1); PLATELET COUNT 244 K/MM3 (134-434); RBC 3.67 M/mm3 (3.60-5.2); RDW 19.3 % (11.6-15.6); WHITE BLOOD COUNT 4.5 K/mm3 (4.0-10.0)
[2018-11-18 10:04] LABS: ALBUMIN 2.5 g/dl (3.4-5.0); BILIRUBIN,TOTAL 0.4 mg/dL (0.2-1); BLOOD UREA NITROGEN 11.3 mg/dL (7-18); CALCIUM 8.6 mg/dL (8.5-10.1); CREATININE 0.8 mg/dL (0.55-1.3); POTASSIUM 4.4 mmol/L (3.5-5.1)
[2018-11-18] MEDS ORDERED: METHADONE 40 MG, METHADONE 30 MG PO ONE (10:45)
[2018-11-18] MEDS ORDERED: METHADONE HCL 10 MG TABLET ONE (10:56)
[2018-11-18] MEDS ORDERED: METHADONE HCL 40 MG DISPERSABLE TABLET ONE (10:56)
[2018-11-18] MEDS: PRENATAL VITAMINS W/ FOLIC ACID TABLET (FP) PO SCH (10:57)
--- NOTE | 2018-11-18 13:31 | PN ---
S CIWA - CIWA Score Nausea/Vomitin-No Nausea/No Vomiting Muscle Tremors: 3 Anxiety: 2 Agitation: 2 Paroxysmal Sweats: 2 Orientation: 0-Oriented Tacttile Disturbances: 0-None Auditory Disturbances: 0-None Visual Disturbances: 0-None Headache: 0-None Present CIWA-Ar Total Score: 9 BHS Progress Note (SOAP) Subjective: sweats mild shakes interrupted sleep Objective: 11/18/18 13:30 Vital Signs Temperature 97.9 F 11/18/18 09:39 Pulse Rate 66 11/18/18 09:39 Respiratory Rate 16 11/18/18 09:39 Blood Pressure 99/64 11/18/18 09:39 O2 Sat by Pulse Oximetry (%) Laboratory Tests 11/18/18 11/18/18 11/18/18 08:00 08:00 08:00 WBC 4.5 RBC 3.67 Hgb 10.9 Hct 33.0 MCV 90.1 MCH 29.8 MCHC 33.1 RDW 19.3 H Plt Count 244 D MPV 8.3 D Sodium 136 Potassium 4.4 Chloride 104 Carbon Dioxide 28 Anion Gap 5 L BUN 11.3 Creatinine 0.8 Est GFR (CKD-EPI)AfAm 96.87 Est GFR (CKD-EPI)NonAf 83.58 Random Glucose 81 Calcium 8.6 Total Bilirubin 0.4 AST 88 H ALT 56 Alkaline Phosphatase 75 Total Protein 9.0 H Albumin 2.5 L RPR Titer Nonreactive labs pending aaox3 ambulating no acute distress Assessment: 11/18/18 13:30 withdrawal sx Plan: continue detox increase fluids ensure plus BID
--- NOTE | 2018-11-18 17:45 | CONSULT ---
[facility] Psychiatric Consult - Data Date of interview: 11/18/18 Admission source: [facility] Identifying data: Readmission to [facility] for this 53 y/o female seeking detoxification treatment (heroin, cocaine/crack, alcohol dependence). Interviewed at [address] [place] [address]. Patient is single without children, domiciled, unemployed and supported on [employer] benefits. Substance Abuse History: Confirmed by patient in this interview. Details in current [facility] report as folows : Smoking history: Current every day smoker. Have you smoked in the past 12 months: Yes. Aproximately how many cigarettes per day : 10. Cigars Per Day: 0. Hx Chewing Tobacco Use: No. Initiated information on smoking cessation: Yes. 'Breaking Loose' booklet given: 11/17/18. - Substances abused. Heroin. Substance route: Injection. Frequency: 3-6 times per week. Amount used: 2 to 3 bags. Age of first use: 30. Date of last use: 11/17/18. Crack. Substance route: Smoking. Frequency: Daily. Amount used: 20 dollars. Age of first use: 30. Date of last use: 11/15/18. Alcohol. Substance route: Oral. Frequency: Daily. Amount used: 12 of 22 ounce of malt liqour.half a pint of vodka,. Age of first use: 13. Date of last use: 11/17/18 Medical History: Medical profile is remarkable for hepatitis C, herpes genitalis , cachexia and HIV infection since 1995 (non compliant with ART medications). Psychiatric History: Patient denies history of psychiatric hospitalizations. Only CPEP visits. Diagnosed with MDD and Borderline Personality Disorder (at age 23) during follow-up at [facility] in [facility]. Patient is known to the [facility] OPD clinic and [facility] in the [place]. Ms Hood declares that she has been lost to follow-up for more than six months (stopped taking lexapro + stopped seeing psychiatrist at OPD clinic). She is currently on methadone maintenance (70 mg/day) at the [facility] program in the [place]. Denies history of suicide attempts. Physical/Sexual Abuse/Trauma History: Patient denies history of abuse. Additional Comment: Urine drug screen results: CAROLYN-Cocaine, MOP-Opiates, MTD- Methadone. Noted. Mental Status Exam - Mental Status Exam Alert and Oriented to: Time, Place, Person Cognitive Function: Good Patient Appearance: Well Groomed (cachectic appearance, missing teeth) Mood: Withdrawn, Apprehensive Affect: Appropriate, Mood Congruent Patient Behavior: Fatigued, Cooperative Speech Pattern: Clear, Excessive Voice Loudness: Normal Thought Process: Goal Oriented Thought Disorder: Not Present Hallucinations: Denies Suicidal Ideation: Denies Homicidal Ideation: Denies Insight/Judgement: Poor Sleep: Fair Appetite: Poor, Weight loss (patient reports that lack of funds for several months prevented her from buying food) Gait/Station: Normal Psychiatric Findings - Problem List ([place] 1, 2,3) (1) Alcohol dependence with withdrawal Current Visit: Yes Status: Acute Qualifiers: Complication of substance-induced condition: uncomplicated Qualified Code(s ): F10.230 - Alcohol dependence with withdrawal, uncomplicated (2) Opioid dependence on agonist therapy Current Visit: Yes Status: Chronic (3) Cocaine dependence Current Visit: Yes Status: Chronic (4) Nicotine dependence Current Visit: Yes Status: Chronic (5) History of depression Current Visit: Yes Status: Chronic Comment: As per history and records. Non- compliant with medications. (6) Non-compliance Current Visit: Yes Status: Chronic - Initial Treatment Plan Initial Treatment Plan: Psychoeducation. Sleep hygiene. Detoxification. AA/NA meetings. Will not resume SSRI at this time (observe patient's clinical course until completion of detoxification). No therapeutic gains to be expected from addition of escitalopram to the regimen (in view of prolonged non-adherence to that medication : 6 months). Support. Motivational counseling. Observation.
[2018-11-18] MEDS: THIAMINE HCL 100 MG TABLET (FP) PO SCH (22:54)
[2018-11-18] MEDS: MELATONIN 5 MG TABLETS PO PRN (22:56)
[2018-11-19] MEDS ORDERED: METHADONE HCL 40 MG DISPERSABLE TABLET PO SCH (06:00)
[2018-11-19] MEDS ORDERED: METHADONE HCL 40 MG DISPERSABLE TABLET ONE (06:47)
[2018-11-19] MEDS ORDERED: METHADONE HCL 10 MG TABLET ONE (06:47)
[2018-11-19] MEDS: METHADONE 40 MG, METHADONE 30 MG PO SCH (07:07)
[2018-11-19] MEDS: chlordiazePOXIDE HCL 25 MG CAPSULE PO SCH ×4 (07:07→22:42)
[2018-11-19] MEDS: METHOCARBAMOL 500 MG TABLET PO PRN (07:09)
[2018-11-19] MEDS: PRENATAL VITAMINS W/ FOLIC ACID TABLET (FP) PO SCH (11:02)
--- NOTE | 2018-11-19 17:22 | PN ---
[facility] CIWA - CIWA Score Nausea/Vomitin-No Nausea/No Vomiting Muscle Tremors: 3 Anxiety: 3 Agitation: 3 Paroxysmal Sweats: 3 Orientation: 0-Oriented Tacttile Disturbances: 0-None Auditory Disturbances: 0-None Visual Disturbances: 0-None Headache: 0-None Present CIWA-Ar Total Score: 12 S Progress Note (SOAP) Subjective: Anxious, interrupted sleep, c/o constipation (no bm x 3 days, wants citroma, patient instructed to request citroma from RN). Patient c/o weight loss due to not eating as she was too busy smoking crack and not eating and that her food stamp cut off for one month. Patient requesting ensure TID. Objective: 11/19/18 17:18 Last Vital Signs Temp Pulse Resp BP Pulse Ox 97.7 F 75 16 89/61 L 11/19/18 13:42 11/19/18 13:42 11/19/18 13:42 11/19/18 13:42 Hypotension noted (denies any symptoms) Laboratory Tests 11/18/18 11/18/18 11/18/18 08:00 08:00 08:00 WBC 4.5 RBC 3.67 Hgb 10.9 Hct 33.0 MCV 90.1 MCH 29.8 MCHC 33.1 RDW 19.3 H Plt Count 244 D MPV 8.3 D Sodium 136 Potassium 4.4 Chloride 104 Carbon Dioxide 28 Anion Gap 5 L BUN 11.3 Creatinine 0.8 Est GFR (CKD-EPI)AfAm 96.87 Est GFR (CKD-EPI)NonAf 83.58 Random Glucose 81 Calcium 8.6 Total Bilirubin 0.4 AST 88 H ALT 56 Alkaline Phosphatase 75 Total Protein 9.0 H Albumin 2.5 L RPR Titer Nonreactive Labs reviewed: albumin 2.5 Assessment: 11/19/18 17:20 Withdrawal symptoms Noted with hypotension and hypoalbuminemia Plan: Continue detox Encouraged PO water intake Hypotension: asymptomatic (patient stated her b/p always runs on low side), encouraged to drink more water and ambulate more frequently Hypoalbuminemia: ensure TID, encouraged diet
[2018-11-19] MEDS: THIAMINE HCL 100 MG TABLET (FP) PO SCH (22:42)
[2018-11-19] MEDS: MELATONIN 5 MG TABLETS PO PRN (22:42)
[2018-11-20] MEDS ORDERED: chlordiazePOXIDE HCL 10 MG CAPSULE PO PRN
[2018-11-20] MEDS ORDERED: METHADONE HCL 10 MG TABLET ONE (04:43)
[2018-11-20] MEDS ORDERED: METHADONE HCL 40 MG DISPERSABLE TABLET ONE (04:44)
[2018-11-20] MEDS: chlordiazePOXIDE HCL 10 MG CAPSULE PO SCH ×4 (05:30→22:37)
[2018-11-20] MEDS: METHADONE 40 MG, METHADONE 30 MG PO SCH (05:30)
[2018-11-20] MEDS: PRENATAL VITAMINS W/ FOLIC ACID TABLET (FP) PO SCH (10:11)
--- NOTE | 2018-11-20 12:30 | PN ---
S CIWA - CIWA Score Nausea/Vomitin-No Nausea/No Vomiting Muscle Tremors: 3 Anxiety: 3 Agitation: 3 Paroxysmal Sweats: 2 Orientation: 0-Oriented Tacttile Disturbances: 0-None Auditory Disturbances: 0-None Visual Disturbances: 0-None Headache: 0-None Present CIWA-Ar Total Score: 11 S Progress Note (SOAP) Subjective: sweats shakes interrupted sleep body aches anxiety Objective: 11/20/18 12:30 Vital Signs Temperature 97.7 F 11/20/18 09:40 Pulse Rate 74 11/20/18 09:40 Respiratory Rate 17 11/20/18 09:40 Blood Pressure 100/54 L 11/20/18 09:40 O2 Sat by Pulse Oximetry (%) aaox3 ambulating no acute distress Assessment: 11/20/18 12:31 withdrawal sx Plan: continue detox increase fluids
[2018-11-20] MEDS: METHOCARBAMOL 500 MG TABLET PO PRN (22:37)
[2018-11-20] MEDS: THIAMINE HCL 100 MG TABLET (FP) PO SCH (22:37)
[2018-11-20] MEDS: MELATONIN 5 MG TABLETS PO PRN (22:37)
[2018-11-21] MEDS ORDERED: METHADONE HCL 40 MG DISPERSABLE TABLET ONE (04:44)
[2018-11-21] MEDS ORDERED: METHADONE HCL 10 MG TABLET ONE (04:44)
[2018-11-21] MEDS: chlordiazePOXIDE HCL 10 MG CAPSULE PO SCH ×2 (05:42→17:00)
[2018-11-21] MEDS: METHADONE 40 MG, METHADONE 30 MG PO SCH (05:43)
[2018-11-21] MEDS: PRENATAL VITAMINS W/ FOLIC ACID TABLET (FP) PO SCH (10:41)
--- NOTE | 2018-11-21 10:57 | PN ---
[facility] Progress Note Note: Patient saw Dr Beck on 11/18/09 and was not prescribed any medication. According to entry from Dr Beck note, she was on Lexapro and she has not taken it for more than 6 months. She requests to see data analyst report writer to inquire if she is going to get script for Lexapro on discharge. Patient was told that she only gets script for standard medications that she is currently getting from this facility. She was also told that Lexapro effectiveness start in 3 to 6 weeks after starting it and probably Dr Beck was not sure she would continue to take it following discharge. She was told that if she really wants to be on that medication, she should follow up with her psychiatrist
[2018-11-21] MEDS ORDERED: ARTIFICIAL TEARS (POLYVINYL ALCOHOL) OPTH DROPS OU PRN (10:58)
--- NOTE | 2018-11-21 12:38 | PN ---
S CIWA - CIWA Score Nausea/Vomitin-No Nausea/No Vomiting Muscle Tremors: 2 Anxiety: 1-Mildly Anxious Agitation: 1-Slight > Activity Paroxysmal Sweats: No Perspiration Orientation: 0-Oriented Tacttile Disturbances: 0-None Auditory Disturbances: 0-None Visual Disturbances: 0-None Headache: 0-None Present CIWA-Ar Total Score: 4 BHS Progress Note (SOAP) Subjective: agitation left eye redness Objective: 11/21/18 12:37 Vital Signs Temperature 98.0 F 11/21/18 09:42 Pulse Rate 75 11/21/18 09:42 Respiratory Rate 18 11/21/18 09:42 Blood Pressure 110/59 L 11/21/18 09:42 O2 Sat by Pulse Oximetry (%) aaox3 ambulating no acute distress Assessment: 11/21/18 12:37 mild withdrawals left eye assess, mild redness noted artificial tears ordered abx oint ordered Plan: continue detox d/c in am
[2018-11-21] MEDS: ERYTHROMYCIN 0.5% OPHTHALMIC OINTMENT 3.5 GM TUBE OD SCH (13:20)
[2018-11-21] MEDS: THIAMINE HCL 100 MG TABLET (FP) PO SCH (22:46)
[2018-11-21] MEDS: MELATONIN 5 MG TABLETS PO PRN (22:47)
[2018-11-22] MEDS ORDERED: METHADONE HCL 10 MG TABLET ONE (04:42)
[2018-11-22] MEDS ORDERED: METHADONE HCL 40 MG DISPERSABLE TABLET ONE (04:42)
[2018-11-22] MEDS ORDERED: chlordiazePOXIDE HCL 10 MG CAPSULE PO ONE (05:00)
[2018-11-22] MEDS: METHADONE 40 MG, METHADONE 30 MG PO SCH (06:00)
[2018-11-22 07:18] VITALS: PULSE 65; TEMP 98.2
[2018-11-22 09:44] VITALS: BP 103/54
--- NOTE | 2018-11-22 11:28 | DS ---
[facility] Detox Discharge Summary Admission Date: 11/17/18 Discharge Date: 11/22/18 - History Present History: Alcohol Dependence, Cocaine Dependence, Opioid Dependence Additional Comments: Pt is medically cleared and is discharge today. Pt has completed her detox protocol and is discharged to [facility] for continued management. Pt is encouraged to follow the rehab protocol and also to complete his treatment. Pt verbalized understanding. Pt is alert and oriented x3 and in no respiratory distress. Pertinent Past History: H/o HIV+, alcohol, cocaine, and heroin use disorder. - Physical Exam Results Vital Signs: Vital Signs Temperature 98.2 F 11/22/18 09:43 Pulse Rate 65 11/22/18 09:43 Respiratory Rate 18 11/22/18 09:43 Blood Pressure 103/54 L 11/22/18 09:43 O2 Sat by Pulse Oximetry (%) Vital Signs 11/22/18 11/22/18 11/22/18 03:30 06:53 07:18 Temperature 98.2 F 98.2 F Pulse Rate 65 65 Respiratory 18 18 18 Rate Blood Pressure 113/66 113/66 11/22/18 09:43 Temperature 98.2 F Pulse Rate 65 Respiratory 18 Rate Blood Pressure 103/54 L Lab Results WBC 4.5 K/mm3 (4.0-10.0) 11/18/18 08:00 RBC 3.67 M/mm3 (3.60-5.2) 11/18/18 08:00 Hgb 10.9 GM/dL (10.7-15.3) 11/18/18 08:00 Hct 33.0 % (32.4-45.2) 11/18/18 08:00 MCV 90.1 fl (80-96) 11/18/18 08:00 MCHC 33.1 g/dl (32.0-36.0) 11/18/18 08:00 RDW 19.3 % (11.6-15.6) H 11/18/18 08:00 Plt Count 244 K/MM3 (134-434) D 11/18/18 08:00 Sodium 136 mmol/L (136-145) 11/18/18 08:00 Potassium 4.4 mmol/L (3.5-5.1) 11/18/18 08:00 Chloride 104 mmol/L (98-107) 11/18/18 08:00 Carbon Dioxide 28 mmol/L (21-32) 11/18/18 08:00 Anion Gap 5 MMOL/L (8-16) L 11/18/18 08:00 BUN 11.3 mg/dL (7-18) 11/18/18 08:00 Creatinine 0.8 mg/dL (0.55-1.3) 11/18/18 08:00 Random Glucose 81 mg/dL (74-106) 11/18/18 08:00 Calcium 8.6 mg/dL (8.5-10.1) 11/18/18 08:00 Labs noted. Pertinent Admission Physical Exam Findings: withdrawal symptoms. - Treatment Hospital Course: Detox Protocol Followed, Detoxed Safely, Responded well, Discharged Condition Good, Rehab Referral Accepted Patient has Accepted a Rehab Referral to: [facility] - Medication Discharge Medications: Ambulatory Orders Atazanavir [Reyataz -] 300 mg PO DAILY 12/15/11 Emtricitabine/Tenofovir [Truvada 200 mg-300 mg Tablet] 1 each PO DAILY 12/15/11 Ritonavir [Norvir -] 100 mg PO DAILY 12/15/11 Escitalopram Oxalate [Lexapro -] 20 mg PO DAILY #30 tablet 03/05/15 Escitalopram Oxalate [Lexapro -] 20 mg PO DAILY #30 tablet 07/10/16 Bictegrav/Emtricit/Tenofov Ala [Biktarvy 50-200-25 mg Tablet] 1 tablet PO DAILY 11/17/18 - Diagnosis (1) Alcohol dependence with withdrawal Current Visit: Yes Status: Acute Qualifiers: Complication of substance-induced condition: uncomplicated Qualified Code(s ): F10.230 - Alcohol dependence with withdrawal, uncomplicated (2) Cocaine dependence Current Visit: Yes Status: Chronic (3) HIV disease Current Visit: Yes Status: Chronic (4) Nicotine dependence Current Visit: Yes Status: Chronic - AMA Did Patient Leave Against Medical Advice: No
[2018-11-22] MEDS: ERYTHROMYCIN 0.5% OPHTHALMIC OINTMENT 3.5 GM TUBE OD SCH (12:00)
[2018-11-22] MEDS: PRENATAL VITAMINS W/ FOLIC ACID TABLET (FP) PO SCH (12:01)
== END 2018-11-22 13:06 | disposition other institution (70) | DRG 773 ==
LOC: YASAS 14:42 → Y6N 20:44
PROVIDERS: ADMIT Surgery; ATTEND Surgery
PROC: HZ2ZZZZ Detoxification Services for Substance Abuse Treatment (ICD-10-PCS; principal; 2018-11-17)
DX: F10.230 Alcohol dependence with withdrawal, uncomplicated (principal); F11.20 Opioid dependence, uncomplicated; F14.20 Cocaine dependence, uncomplicated; F17.210 Nicotine dependence, cigarettes, uncomplicated; F32.1 Major depressive disorder, single episode, moderate; Z21 Asymptomatic human immunodeficiency virus [HIV] infection status; H57.89 Other specified disorders of eye and adnexa; I95.9 Hypotension, unspecified; R77.0 Abnormality of albumin; B18.2 Chronic viral hepatitis C; Z87.42 Personal history of other diseases of the female genital tract; Z91.14 Patient's other noncompliance with medication regimen
CPT/HCPCS: 36415; 80053; 81025; 85027; 86593

== ENCOUNTER 2018-11-22 12:05 | Inpatient (IN) | payer OTHER ==
--- NOTE | 2018-11-22 13:47 | HP ---
[facility] Rehab Assess/Revision - Admission History Admitted to Rehab from: [facility] Date of Admission to Rehab: 11/22/18 - Vital signs Vital Signs: 98.2, 65, 18, 103/54 - Findings Detox History & Physical reviewed: Yes Concur with findings: Yes Comments/Additional Findings: pt is medically cleared for rehab. Inpatient Rehab Admission - Rehab Decision to Admit Inpatient rehab admission?: Yes - Initial Determination Are CD services needed?: Yes Free of communicable disease: Yes Not in need of hospitalization: Yes - Rehab Admission Criteria Previous failed treatment: Yes Poor recovery environment: Yes Comorbidities: Yes Lacks judgement: No Patient is meeting Inpatient Rehab admission criteria:: Yes
[2018-11-22] MEDS ORDERED: MAGNESIUM CITRATE 300 ML BOTTLE PO PRN (13:52)
[2018-11-22] MEDS ORDERED: LOPERAMIDE HCL 2 MG CAPSULE PO PRN (13:52)
[2018-11-22] MEDS ORDERED: ACETAMINOPHEN 325 MG TABLET (FP) PO PRN (13:52)
[2018-11-22] MEDS ORDERED: MAG HYDROX/AL HYDROX/SIMETH 30 ML UNIT-DOSE CUP PO PRN (13:52)
[2018-11-22] MEDS ORDERED: IBUPROFEN 400 MG TABLET (FP) PO PRN (13:52)
[2018-11-22] MEDS ORDERED: guaiFENesin 200 MG/10 ML 10 ML UNIT-DOSE CUPS PO PRN (13:52)
[2018-11-22] MEDS ORDERED: hydrOXYzine PAMOATE 25 MG CAPSULE (FP) PO PRN (13:52)
[2018-11-22] MEDS ORDERED: MENTHOL/PHENOL 1 EACH UD MM PRN (13:52)
[2018-11-22] MEDS ORDERED: P-EPHED 60MG/TRIPROLIDI 2.5MG TABLET PO PRN (13:52)
[2018-11-22] MEDS: THIAMINE HCL 100 MG TABLET (FP) PO SCH (21:35)
[2018-11-22] MEDS: MELATONIN 5 MG TABLETS PO PRN (21:35)
[2018-11-23] MEDS ORDERED: PT OWN MED DRAWER 7, Y5N ONE ×3 (04:44→17:04)
[2018-11-23] MEDS: ARTIFICIAL TEARS (POLYVINYL ALCOHOL) OPTH DROPS OU PRN (04:45)
[2018-11-23] MEDS ORDERED: METHADONE HCL 10 MG TABLET ONE (06:00)
[2018-11-23] MEDS ORDERED: METHADONE HCL 40 MG DISPERSABLE TABLET PO SCH (06:00)
[2018-11-23] MEDS ORDERED: METHADONE HCL 40 MG DISPERSABLE TABLET ONE (06:00)
[2018-11-23] MEDS: METHADONE 40 MG, METHADONE 30 MG PO SCH (06:41)
[2018-11-23] MEDS: PRENATAL VITAMINS W/ FOLIC ACID TABLET (FP) PO SCH (09:58)
[2018-11-23] MEDS ORDERED: ERYTHROMYCIN 0.5% OPHTHALMIC OINTMENT 3.5 GM TUBE OD SCH (10:00)
--- NOTE | 2018-11-23 10:57 | PN ---
S Progress Note (SOAP) Subjective: Pt is a 53 y/o female admitted from detox yesterday. Pt c/o eye discomfort. Patient States exudate noted earlier in the morning, c/o small growth on left eye. Hx of red eye redness on 11/21/18 while in detox. Pt was started on artificial tears and erythromycin eye ointment daily. Objective: 11/23/18 11:00 Vital Signs 11/23/18 11/23/18 03:30 07:35 Temperature 98.2 F Pulse Rate 67 Respiratory 18 18 Rate Blood Pressure 105/69 Exam:Jasbireomi left eye conjuctival redness with very minimal swelling of eyelids. no exudated noted. Eye is teary. A very small cream color growth on left cornea. Assessment: 11/23/18 11:17 Left eye Conjuctival redness acute conjuctivitis left eye pterygium-left eye Plan: Increase Erythromycin 0.5 % ointment to od QID Artificial tears as directed D/w pt to Wash hands after touching eyes/face -limit touching eyes -follow up with ballistics expert after rehab treatment for further evaluation. Re-evaluate pt if worsening symptoms.
[2018-11-23] MEDS: ERYTHROMYCIN 0.5% OPHTHALMIC OINTMENT 3.5 GM TUBE OD SCH ×3 (13:22→21:38)
[2018-11-23] MEDS: THIAMINE HCL 100 MG TABLET (FP) PO SCH (21:37)
[2018-11-24] MEDS ORDERED: METHADONE HCL 10 MG TABLET ONE (05:21)
[2018-11-24] MEDS ORDERED: METHADONE HCL 40 MG DISPERSABLE TABLET ONE (05:21)
[2018-11-24] MEDS: METHADONE 40 MG, METHADONE 30 MG PO SCH (06:10)
[2018-11-24] MEDS ORDERED: PT OWN MED DRAWER 7, Y5N ONE (08:50)
[2018-11-24] MEDS: PRENATAL VITAMINS W/ FOLIC ACID TABLET (FP) PO SCH (09:58)
[2018-11-24] MEDS: ERYTHROMYCIN 0.5% OPHTHALMIC OINTMENT 3.5 GM TUBE OD SCH (09:59)
[2018-11-24] MEDS ORDERED: ERYTHROMYCIN 0.5% OPHTHALMIC OINTMENT 3.5 GM TUBE OS SCH (10:25)
--- NOTE | 2018-11-24 12:29 | PN ---
[facility] Progress Note Note: Notified by nursing staff patient was in dining room and was bending forward over in chair, patient knees went down to floor on knees, and braced herself by placing hands on the floor. Patient states she hit center of head on floor however states " I did not hit my head hard, it was a light tap". Fall not witnessed by staff. Patient denies dizziness, headache, visual changes at this time. Vital Signs (72 hours) 11/22/18 11/23/18 11/23/18 13:15 01:01 03:30 Temperature 97.5 F L Pulse Rate 73 Respiratory 18 18 18 Rate Blood Pressure 106/69 11/23/18 11/24/18 11/24/18 07:35 00:30 07:28 Temperature 98.2 F 98.4 F Pulse Rate 67 77 Respiratory 18 18 18 Rate Blood Pressure 105/69 94/63 11/24/18 11/24/18 10:50 10:55 Temperature 98.1 F 98.1 F Pulse Rate 78 78 Respiratory 18 18 Rate Blood Pressure 99/68 99/68 PE: Head normocephalic, no palpable lumps, or bruising noted eyes: +perrla, eoms intact b/l, left eye sclera with redness (present prior to fall and being treated with erythromycin), no discharge or exudate noted, no ecchymosis, or swelling of periorbital area neck supple, no jvd car s1s2 resp cta bl gi soft, bs+ nt, nd ext full rom, no edema, no redness or swelling noted A/P Unwitnessed Fall Fall protocol #1 Patient to be transferred to ER for CT of head-patient refused Provider explained potential risk factors from head injury and consequences of treatment refusal patient stated to provider " I am fine. I don't want to go. If I start to have headaches or dizziness I will tell the staff" Patient signed refusal of treatment form continue to monitor clinically
[2018-11-24] MEDS: ERYTHROMYCIN 0.5% OPHTHALMIC OINTMENT 3.5 GM TUBE OS SCH ×3 (13:14→21:27)
[2018-11-24] MEDS ORDERED: METHADONE HCL 40 MG DISPERSABLE TABLET PO SCH (13:58)
[2018-11-24] MEDS ORDERED: METHADONE 40 MG, METHADONE 20 MG PO SCH (14:30)
[2018-11-24] MEDS: THIAMINE HCL 100 MG TABLET (FP) PO SCH (21:27)
[2018-11-25] MEDS ORDERED: METHADONE HCL 10 MG TABLET ONE (06:03)
[2018-11-25] MEDS ORDERED: METHADONE HCL 40 MG DISPERSABLE TABLET ONE (06:03)
[2018-11-25] MEDS: METHADONE 40 MG, METHADONE 20 MG PO SCH (06:23)
[2018-11-25] MEDS: PRENATAL VITAMINS W/ FOLIC ACID TABLET (FP) PO SCH (10:20)
[2018-11-25] MEDS: ARTIFICIAL TEARS (POLYVINYL ALCOHOL) OPTH DROPS OU PRN (10:21)
[2018-11-25] MEDS: ERYTHROMYCIN 0.5% OPHTHALMIC OINTMENT 3.5 GM TUBE OS SCH ×4 (10:25→21:11)
[2018-11-25] MEDS: THIAMINE HCL 100 MG TABLET (FP) PO SCH (21:10)
[2018-11-26] MEDS ORDERED: METHADONE HCL 40 MG DISPERSABLE TABLET ONE (06:18)
[2018-11-26] MEDS ORDERED: METHADONE HCL 10 MG TABLET ONE (06:18)
[2018-11-26] MEDS: METHADONE 40 MG, METHADONE 20 MG PO SCH (06:40)
[2018-11-26] MEDS: PRENATAL VITAMINS W/ FOLIC ACID TABLET (FP) PO SCH (10:06)
[2018-11-26] MEDS: ERYTHROMYCIN 0.5% OPHTHALMIC OINTMENT 3.5 GM TUBE OS SCH ×4 (10:06→21:18)
[2018-11-26] MEDS: ARTIFICIAL TEARS (POLYVINYL ALCOHOL) OPTH DROPS OU PRN (10:06)
[2018-11-26] MEDS ORDERED: PT OWN MED DRAWER 7, Y5N ONE (14:00)
[2018-11-26] MEDS: THIAMINE HCL 100 MG TABLET (FP) PO SCH (21:17)
[2018-11-27] MEDS ORDERED: METHADONE HCL 10 MG TABLET ONE (06:36)
[2018-11-27] MEDS ORDERED: METHADONE HCL 40 MG DISPERSABLE TABLET ONE (06:37)
[2018-11-27] MEDS: METHADONE 40 MG, METHADONE 20 MG PO SCH (06:40)
[2018-11-27] MEDS: PRENATAL VITAMINS W/ FOLIC ACID TABLET (FP) PO SCH (09:50)
[2018-11-27] MEDS: ERYTHROMYCIN 0.5% OPHTHALMIC OINTMENT 3.5 GM TUBE OS SCH ×2 (09:50→13:28)
[2018-11-27 12:23] LABS: PH,URINE 7.5 (5.0-8.0); URINE APPEARANCE CLEAR; URINE BILIRUBIN NEGATIVE (NEGATIVE); URINE COLOR YELLOW; URINE GLUCOSE (UA) NEGATIVE (NEGATIVE); URINE KETONE NEGATIVE (NEGATIVE); URINE LEUK ESTERASE NEGATIVE (NEGATIVE); URINE NITRITE NEGATIVE (NEGATIVE); URINE PROTEIN NEGATIVE (NEGATIVE); URINE UROBILINOGEN 0.2 mg/dL (0.2-1.0)
[2018-11-27] MEDS: NEOMYCIN/POLYMYX/HC OPHTHALMIC SUSPENSION 7.5 ML BOTTLE OS SCH ×3 (14:47→21:18)
[2018-11-27] MEDS: THIAMINE HCL 100 MG TABLET (FP) PO SCH (21:17)
[2018-11-28] MEDS ORDERED: METHADONE HCL 10 MG TABLET ONE (03:17)
[2018-11-28] MEDS ORDERED: METHADONE HCL 40 MG DISPERSABLE TABLET ONE (03:17)
[2018-11-28] MEDS ORDERED: PT OWN MED DRAWER 7, Y5N ONE ×2 (03:18→10:25)
[2018-11-28] MEDS: METHADONE 40 MG, METHADONE 20 MG PO SCH (06:24)
[2018-11-28] MEDS: NEOMYCIN/POLYMYX/HC OPHTHALMIC SUSPENSION 7.5 ML BOTTLE OS SCH ×5 (06:25→21:37)
[2018-11-28] MEDS: PRENATAL VITAMINS W/ FOLIC ACID TABLET (FP) PO SCH (10:10)
[2018-11-28] MEDS: MAGNESIUM HYDROX 2400MG/30ML ORAL SUSPENSION 30 ML CUP PO PRN (17:02)
[2018-11-28] MEDS: THIAMINE HCL 100 MG TABLET (FP) PO SCH (21:37)
[2018-11-28] MEDS: MELATONIN 5 MG TABLETS PO PRN (21:38)
[2018-11-29] MEDS ORDERED: METHADONE HCL 40 MG DISPERSABLE TABLET ONE (03:21)
[2018-11-29] MEDS ORDERED: METHADONE HCL 10 MG TABLET ONE (03:21)
[2018-11-29] MEDS: METHADONE 40 MG, METHADONE 20 MG PO SCH (06:21)
[2018-11-29] MEDS: NEOMYCIN/POLYMYX/HC OPHTHALMIC SUSPENSION 7.5 ML BOTTLE OS SCH ×5 (06:21→21:39)
[2018-11-29] MEDS ORDERED: PT OWN MED DRAWER 7, Y5N ONE (07:05)
[2018-11-29] MEDS: PRENATAL VITAMINS W/ FOLIC ACID TABLET (FP) PO SCH (10:11)
[2018-11-29] MEDS: MAGNESIUM HYDROX 2400MG/30ML ORAL SUSPENSION 30 ML CUP PO PRN ×2 (10:13→21:40)
[2018-11-29] MEDS: THIAMINE HCL 100 MG TABLET (FP) PO SCH (21:38)
[2018-11-30] MEDS ORDERED: METHADONE HCL 10 MG TABLET ONE (03:45)
[2018-11-30] MEDS ORDERED: METHADONE HCL 40 MG DISPERSABLE TABLET ONE (03:46)
[2018-11-30] MEDS: METHADONE 40 MG, METHADONE 20 MG PO SCH (06:45)
[2018-11-30] MEDS: NEOMYCIN/POLYMYX/HC OPHTHALMIC SUSPENSION 7.5 ML BOTTLE OS SCH ×5 (06:46→21:23)
[2018-11-30] MEDS: ARTIFICIAL TEARS (POLYVINYL ALCOHOL) OPTH DROPS OU PRN (08:23)
[2018-11-30] MEDS: PRENATAL VITAMINS W/ FOLIC ACID TABLET (FP) PO SCH (10:29)
[2018-11-30] MEDS ORDERED: PT OWN MED DRAWER 7, Y5N ONE ×3 (11:01→17:48)
[2018-11-30] MEDS: THIAMINE HCL 100 MG TABLET (FP) PO SCH (21:23)
[2018-12-01] MEDS ORDERED: METHADONE HCL 10 MG TABLET ONE (05:43)
[2018-12-01] MEDS ORDERED: METHADONE HCL 40 MG DISPERSABLE TABLET ONE (05:43)
[2018-12-01] MEDS: METHADONE 40 MG, METHADONE 20 MG PO SCH (06:20)
[2018-12-01] MEDS: NEOMYCIN/POLYMYX/HC OPHTHALMIC SUSPENSION 7.5 ML BOTTLE OS SCH ×5 (06:21→21:32)
[2018-12-01] MEDS ORDERED: PT OWN MED DRAWER 7, Y5N ONE ×3 (08:51→23:23)
[2018-12-01] MEDS: ARTIFICIAL TEARS (POLYVINYL ALCOHOL) OPTH DROPS OU PRN (08:54)
[2018-12-01] MEDS: PRENATAL VITAMINS W/ FOLIC ACID TABLET (FP) PO SCH (10:07)
[2018-12-01] MEDS: THIAMINE HCL 100 MG TABLET (FP) PO SCH (21:32)
[2018-12-02] MEDS ORDERED: METHADONE HCL 10 MG TABLET ONE (06:09)
[2018-12-02] MEDS ORDERED: METHADONE HCL 40 MG DISPERSABLE TABLET ONE (06:10)
[2018-12-02] MEDS: METHADONE 40 MG, METHADONE 20 MG PO SCH (06:28)
[2018-12-02] MEDS: NEOMYCIN/POLYMYX/HC OPHTHALMIC SUSPENSION 7.5 ML BOTTLE OS SCH ×5 (06:28→21:54)
[2018-12-02] MEDS: PRENATAL VITAMINS W/ FOLIC ACID TABLET (FP) PO SCH (10:18)
[2018-12-02] MEDS ORDERED: PT OWN MED DRAWER 7, Y5N ONE (11:03)
[2018-12-02] MEDS: ARTIFICIAL TEARS (POLYVINYL ALCOHOL) OPTH DROPS OU PRN (11:03)
[2018-12-02] MEDS: THIAMINE HCL 100 MG TABLET (FP) PO SCH (21:54)
[2018-12-03] MEDS ORDERED: METHADONE HCL 40 MG DISPERSABLE TABLET ONE (03:28)
[2018-12-03] MEDS ORDERED: METHADONE HCL 10 MG TABLET ONE (03:28)
[2018-12-03] MEDS ORDERED: PT OWN MED DRAWER 7, Y5N ONE ×2 (03:29→13:29)
[2018-12-03] MEDS: METHADONE 40 MG, METHADONE 20 MG PO SCH (06:33)
[2018-12-03] MEDS: NEOMYCIN/POLYMYX/HC OPHTHALMIC SUSPENSION 7.5 ML BOTTLE OS SCH ×5 (06:33→21:08)
[2018-12-03] MEDS: PRENATAL VITAMINS W/ FOLIC ACID TABLET (FP) PO SCH (10:13)
[2018-12-03] MEDS: THIAMINE HCL 100 MG TABLET (FP) PO SCH (21:08)
[2018-12-04] MEDS ORDERED: METHADONE HCL 10 MG TABLET ONE (03:57)
[2018-12-04] MEDS ORDERED: METHADONE HCL 40 MG DISPERSABLE TABLET ONE (03:57)
[2018-12-04] MEDS ORDERED: PT OWN MED DRAWER 7, Y5N ONE (03:58)
[2018-12-04] MEDS: METHADONE 40 MG, METHADONE 20 MG PO SCH (06:31)
[2018-12-04] MEDS: NEOMYCIN/POLYMYX/HC OPHTHALMIC SUSPENSION 7.5 ML BOTTLE OS SCH ×4 (06:31→17:29)
[2018-12-04 07:26] VITALS: BP 87/63; PULSE 72; TEMP 97.8
[2018-12-04] MEDS: PRENATAL VITAMINS W/ FOLIC ACID TABLET (FP) PO SCH (10:39)
[2018-12-04] MEDS: MAGNESIUM HYDROX 2400MG/30ML ORAL SUSPENSION 30 ML CUP PO PRN (10:40)
--- NOTE | 2018-12-04 20:36 | DS ---
[facility] Rehab Discharge Summary - [facility] Re[facility] Discharge Summary Admission Date: 11/22/18 Discharge Date: 12/04/18 - History Present History: Alcohol dependence (In early remission), Cocaine dependence ( In early remission), MMTP (On MMTP) Pertinent Past History: Hx: HIV (+); Hep C. On Methadone maintenance for hx Opioid Used Disorder - Discharge Physical Exam Vital Signs: Vital Signs Temperature 97.8 F 12/04/18 07:25 Pulse Rate 72 12/04/18 07:25 Respiratory Rate 18 12/04/18 07:25 Blood Pressure 87/63 L 12/04/18 07:25 O2 Sat by Pulse Oximetry (%) Pertinent Admission Physical Exam Findings: Patient with hx alcohol and crack/cocaine use disorder. Opioid use disorder on agonist therapy. Treated for alcohol use disorder in detox and transferred to rehab upon completion. - Treatment Discharge Condition: Discharge condition good (Responded well.) Hospital Course: Patient continued management of extended withdrawal symptoms during course of rehab. Encouraged continue f/u w/ HIV treatment Provider Patient treated for conjunctivitis and encouraged to f/u w/ Ophthalmology. - Medication Discharge Medications: Ambulatory Orders Atazanavir [Reyataz -] 300 mg PO DAILY 12/15/11 Emtricitabine/Tenofovir [Truvada 200 mg-300 mg Tablet] 1 each PO DAILY 12/15/11 Ritonavir [Norvir -] 100 mg PO DAILY 12/15/11 Escitalopram Oxalate [Lexapro -] 20 mg PO DAILY #30 tablet 03/05/15 Escitalopram Oxalate [Lexapro -] 20 mg PO DAILY #30 tablet 07/10/16 Bictegrav/Emtricit/Tenofov Ala [Biktarvy 50-200-25 mg Tablet] 1 tablet PO DAILY 11/17/18 - Medication-Assisted Treatment (MAT) Medication-Assisted Treatment (MAT): Yes MAT Follow-up Referral: Patient will return to current MMTP for continuation. - Discharge Instructions Diet, activity, other medical instructions: Diet: Activity: Other medical instructions: - Diagnosis (1) Alcohol dependence in early, early partial, sustained full, or sustained partial remission Status: Acute (2) Cocaine dependence in early, early partial, sustained full, or sustained partial remission Status: Acute (3) MDD (major depressive disorder), single episode, moderate Status: Acute (4) Opioid dependence on agonist therapy Status: Chronic (5) History of HIV infection Status: Chronic - Follow-up Referral Minutes to complete discharge: 20 - AMA Did Patient Leave Against Medical Advice: No
== END 2018-12-04 18:27 | disposition left against medical advice (07) | DRG 770 ==
LOC: YASAS 12:05 → Y3E 12:06
PROVIDERS: ADMIT Neuromusculoskeletal Medicine & OMM; ATTEND Neuromusculoskeletal Medicine & OMM
PROC: HZ42ZZZ Group Counseling for Substance Abuse Treatment, Cognitive-Behavioral (ICD-10-PCS; principal; 2018-11-22)
DX: F10.20 Alcohol dependence, uncomplicated (principal); F14.20 Cocaine dependence, uncomplicated; F11.20 Opioid dependence, uncomplicated; F32.9 Major depressive disorder, single episode, unspecified; Z21 Asymptomatic human immunodeficiency virus [HIV] infection status; B18.2 Chronic viral hepatitis C; H10.32 Unspecified acute conjunctivitis, left eye; H11.002 Unspecified pterygium of left eye
CPT/HCPCS: 81003; 86480

== ENCOUNTER 2019-03-27 09:40 | Inpatient (IN) | payer OTHER ==
[2019-03-27 10:13] VITALS: BMI 21.1
--- NOTE | 2019-03-27 12:28 | HP ---
CIWA Score Nausea/Vomitin Muscle Tremors: 3 Anxiety: 3 Agitation: 3 Paroxysmal Sweats: No Perspiration Orientation: 0-Oriented Tacttile Disturbances: 0-None Auditory Disturbances: 0-None Visual Disturbances: 0-None Headache: 0-None Present CIWA-Ar Total Score: 12 - Admission Criteria OASAS Guidelines: Admission for Medically Managed Detox: Requires at least one of the followin. CIWA greater than 12 2. Seizures within the past 24 hours 3. Delirium tremens within the past 24 hours 4. Hallucinations within the past 24 hours 5. Acute intervention needed for co occurring medical disorder 6. Acute intervention needed for co occurring psychiatric disorder 7. Severe withdrawal that cannot be handled at a lower level of care (continued vomiting, continued diarrhea, abnormal vital signs) requiring intravenous medication and/or fluids 8. Admitting History and Physical - Past Medical History ...LMP: 04/21/11 - Smoking History Smoking history: Current every day smoker Have you smoked in the past 12 months: Yes Aproximately how many cigarettes per day: 10 - Alcohol/Substance Use Hx Alcohol Use: Yes Admission ROS [facility] Allergies/Adverse Reactions: Allergies Allergy/AdvReac Type Severity Reaction Status Date / Time No Known Allergies Allergy Verified 03/27/19 10:00 History of Present Illness: 53 y.o female pt here requesting detox from etoh use , reports 16-20 beers /day x 2-3 years , denies blackouts, seizures or tremors , latest use today current VINICIO 0.104 , + falls while intoxicated most recently 1 week ago w/ superficial scratches to knees . MMTP - 35 mg /day , latest today . cocaine 40 $ 2 x /week cannabis- denies tobacco : 04/14 ppd crystal methamphetamine- claims she tried for the first time yesterday via IV lmp > 20 years ago ( age 27 ) PMHX : hep C , HIV/ AIDS admits non- compliance w/ meds > 6 weeks claims unable to fill rx at pharmacy , lost meds PSHx : denies PSych hx : depression denies SI / HI SHX : lives alone . Exam Limitations: Clinical Condition, Intoxication - Ebola screening Have you traveled outside of the country in the last 21 days: No (N) Have you had contact with anyone from an Ebola affected area: No Do you have a fever: No - Review of Systems Constitutional: Loss of Appetite, Unintentional Wgt. Loss EENT: reports: No Symptoms Reported Respiratory: reports: No Symptoms reported Cardiac: reports: No Symptoms Reported GI: reports: See HPI : reports: No Symptoms Reported Musculoskeletal: reports: No Symptoms Reported Integumentary: reports: See HPI, Bruising (knees) Neuro: reports: No Symptoms reported Endocrine: reports: No Symptoms Reported Psychiatric: reports: Orientated x3, Agitated Patient History - Patient Medical History Hx Anemia: No Hx Asthma: No Hx Chronic Obstructive Pulmonary Disease (COPD): No Hx Cancer: No Hx Cardiac Disorders: No Hx Congestive Heart Failure: No Hx Hypertension: No Hx Hypercholesterolemia: No Hx Pacemaker: No HX Cerebrovascular Accident: No Hx Seizures: No Hx Dementia: No Hx Diabetes: No Hx Gastrointestinal Disorders: No Hx Liver Disease: No Hx Genitourinary Disorders: No Hx Sexually Transmitted Disorders: Yes (HIV ) Hx Renal Disease (ESRD): No Hx Thyroid Disease: No Hx Human Immunodeficiency Virus (HIV): Yes (1995 ) Hx Hepatitis C: Yes Hx Depression: Yes Hx Suicide Attempt: No Hx Bipolar Disorder: No Hx Schizophrenia: No - Patient Surgical History Past Surgical History: No Hx Neurologic Surgery: No Hx Cataract Extraction: No Hx Cardiac Surgery: No Hx Lung Surgery: No Hx Breast Surgery: No Hx Breast Biopsy: No Hx Abdominal Surgery: No Hx Appendectomy: No Hx Cholecystectomy: No Hx Genitourinary Surgery: No Hx Section: No Hx Orthopedic Surgery: No Hx Hysterectomy: No Anesthesia Reaction: No - PPD History Date: 07/08/16 Results: 0mm - Smoking Cessation Smoking history: Current every day smoker Have you smoked in the past 12 months: Yes Aproximately how many cigarettes per day: 10 Cigars Per Day: 0 Hx Chewing Tobacco Use: No Initiated information on smoking cessation: No - Substances abused Heroin Substance route: Injection Frequency: 1-2 times per week Amount used: 1-2 bags Age of first use: 30 Date of last use: 03/24/19 Crack Substance route: Smoking Frequency: 1-2 times per week Amount used: $20 Age of first use: 30 Date of last use: 03/26/19 Alcohol Substance route: Oral Frequency: Daily Amount used: 16-20 of 16oz of malt liqour Age of first use: 13 Date of last use: 03/27/19 Admission Physical Exam [facility] - Vital Signs Vital Signs: Vital Signs - 24 hr 03/27/19 10:06 Temperature 97.3 F L Pulse Rate 83 Respiratory 16 Rate Blood Pressure 119/78 - Physical General Appearance: Yes: Mild Distress, Intoxicated, Cachetic, Thin, Anxious HEENTM: Yes: EOMI, Hearing grossly Normal, Normocephalic, Normal Voice, Other ( poor dentition, many missing teeth) Respiratory: Yes: Chest Non-Tender, Lungs Clear, Normal Breath Sounds, No Respiratory Distress, No Accessory Muscle Use Neck: Yes: No masses,lesions,Nodules, Trachea in good position Cardiology: Yes: Regular Rhythm, Regular Rate, S1, S2 Abdominal: Yes: Non Tender, Flat, Soft Musculoskeletal: Yes: Gait Steady Extremities: Yes: Normal Range of Motion, Non-Tender Neurological: Yes: Fully Oriented, Alert, Motor Strength 5/5, Normal Mood/Affect Integumentary: Yes: Warm, Other (superficial excoriations christi knees) - Diagnostic (1) Alcohol dependence Current Visit: Yes Status: Chronic (2) Alcohol intoxication Current Visit: Yes Status: Acute Qualifiers: Complication of substance-induced condition: uncomplicated Qualified Code(s ): F10.920 - Alcohol use, unspecified with intoxication, uncomplicated Breathalyzer - Breathalyzer Breathalyzer: 0.104 Urine Drug Screen - Test Device Lot number: [id number] Expiration date: 11/08/20 - Control Is test valid?: Yes - Results Drug screen NEGATIVE: No Urine drug screen results: THC-Marijuana, CAROLYN-Cocaine, MET-Methamphetamine, AMP- Amphetamines, MTD-Methadone Inpatient Rehab Admission - Rehab Decision to Admit Inpatient rehab admission?: No
[2019-03-27] MEDS ORDERED: BISMUTH SUBSALICYLATE 524 MG/30 ML UD PO PRN (12:35)
[2019-03-27] MEDS ORDERED: ACETAMINOPHEN 325 MG TABLET (FP) PO PRN ×2 (12:35)
[2019-03-27] MEDS ORDERED: MENTHOL/PHENOL 1 EACH UD MM PRN (12:35)
[2019-03-27] MEDS ORDERED: MELATONIN 5 MG TABLETS PO PRN (12:35)
[2019-03-27] MEDS ORDERED: MAGNESIUM HYDROX 2400MG/30ML ORAL SUSPENSION 30 ML CUP PO PRN (12:35)
[2019-03-27] MEDS ORDERED: IBUPROFEN 400 MG TABLET (FP) PO PRN (12:35)
[2019-03-27] MEDS ORDERED: MAGNESIUM CITRATE 300 ML BOTTLE PO PRN (12:35)
[2019-03-27] MEDS ORDERED: MAG HYDROX/AL HYDROX/SIMETH 30 ML UNIT-DOSE CUP PO PRN (12:35)
[2019-03-27] MEDS ORDERED: diazePAM 5 MG TABLET PO PRN (12:37)
[2019-03-27] MEDS ORDERED: diazePAM 5 MG TABLET PO SCH (14:00)
[2019-03-27 15:11] LABS: HEMATOCRIT 35.9 % (32.4-45.2); HEMOGLOBIN 11.7 GM/dL (10.7-15.3); MCH 29.4 pg (25.7-33.7); MCHC 32.6 g/dl (32.0-36.0); MEAN CELL VOLUME 90.2 fl (80-96); MEAN PLT VOLUME 9.6 fl (7.5-11.1); PLATELET COUNT 170 K/MM3 (134-434); RBC 3.98 M/mm3 (3.60-5.2); RDW 15.8 % (11.6-15.6); WHITE BLOOD COUNT 3.6 K/mm3 (4.0-10.0)
[2019-03-27 15:40] LABS: ALBUMIN 3.5 g/dl (3.4-5.0); BILIRUBIN,TOTAL 0.4 mg/dL (0.2-1); CALCIUM 8.8 mg/dL (8.5-10.1); CREATININE 0.8 mg/dL (0.55-1.3)
[2019-03-27] MEDS: chlordiazePOXIDE HCL 10 MG CAPSULE PO PRN (17:37)
[2019-03-27] MEDS: VITAMINS A AND D TOPICAL OINTMENT 60 GM TUBE TP SCH (18:08)
[2019-03-27] MEDS ORDERED: THIAMINE HCL 100 MG TABLET (FP) PO SCH (22:00)
[2019-03-27] MEDS: chlordiazePOXIDE HCL 25 MG CAPSULE PO SCH (22:07)
[2019-03-28] MEDS: VITAMINS A AND D TOPICAL OINTMENT 60 GM TUBE TP SCH ×4 (02:22→17:26)
[2019-03-28] MEDS ORDERED: METHADONE HCL 10 MG TABLET ONE ×2 (04:49→04:55)
[2019-03-28] MEDS ORDERED: METHADONE HCL 5 MG TABLET ONE ×2 (04:50→04:55)
[2019-03-28] MEDS: chlordiazePOXIDE HCL 25 MG CAPSULE PO SCH ×2 (05:52→12:16)
[2019-03-28] MEDS ORDERED: METHADONE HCL 40 MG DISPERSABLE TABLET PO SCH (06:00)
[2019-03-28] MEDS ORDERED: METHADONE 30 MG, METHADONE 5 MG PO SCH (06:00)
[2019-03-28] MEDS ORDERED: diazePAM 5 MG TABLET PO SCH (10:00)
[2019-03-28] MEDS ORDERED: PRENATAL VITAMINS W/ FOLIC ACID TABLET (FP) PO SCH (10:00)
[2019-03-28] MEDS: hydrOXYzine PAMOATE 25 MG CAPSULE (FP) PO PRN ×2 (10:05→17:25)
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
--- NOTE | 2019-03-28 10:36 | PN ---
[facility] CIWA - CIWA Score Nausea/Vomitin-No Nausea/No Vomiting Muscle Tremors: 3 Anxiety: 3 Agitation: 3 Paroxysmal Sweats: 2 Orientation: 0-Oriented Tacttile Disturbances: 0-None Auditory Disturbances: 0-None Visual Disturbances: 0-None Headache: 0-None Present CIWA-Ar Total Score: 11 S Progress Note (SOAP) Subjective: sweats teary eyes body aches interrupted sleep agitation dry skin Objective: 03/28/19 10:35 Vital Signs Temperature 97.5 F L 03/28/19 02:00 Pulse Rate 59 L 03/28/19 02:00 Respiratory Rate 18 03/28/19 02:00 Blood Pressure 113/69 03/28/19 02:00 O2 Sat by Pulse Oximetry (%) Laboratory Tests 03/27/19 03/27/19 03/27/19 12:50 12:50 12:50 WBC 3.6 L RBC 3.98 Hgb 11.7 Hct 35.9 MCV 90.2 MCH 29.4 MCHC 32.6 RDW 15.8 H D Plt Count 170 D MPV 9.6 D Sodium 134 L Potassium 4.0 Chloride 103 Carbon Dioxide 23 Anion Gap 8 BUN 9.0 Creatinine 0.8 Est GFR (CKD-EPI)AfAm 96.87 Est GFR (CKD-EPI)NonAf 83.58 Random Glucose 95 Calcium 8.8 Total Bilirubin 0.4 AST 108 H ALT 67 H Alkaline Phosphatase 76 Total Protein 10.0 H Albumin 3.5 POC Urine HCG, Qual Negative RPR Titer 03/27/19 12:50 WBC RBC Hgb Hct MCV MCH MCHC RDW Plt Count MPV Sodium Potassium Chloride Carbon Dioxide Anion Gap BUN Creatinine Est GFR (CKD-EPI)AfAm Est GFR (CKD-EPI)NonAf Random Glucose Calcium Total Bilirubin AST ALT Alkaline Phosphatase Total Protein Albumin POC Urine HCG, Qual RPR Titer Nonreactive aaox3 ambulating no acute distress labs noted Assessment: 03/28/19 10:36 withdrawals Plan: continue detox increase fluids lac hydrin lotion ordered
[2019-03-28] MEDS ORDERED: ONDANSETRON *ODT* 4 MG TABLET SL PRN (10:41)
[2019-03-28] MEDS ORDERED: AMMONIUM LACTATE 12% LOTION 225 GM BOTTLE TP SCH (10:45)
[2019-03-28] MEDS ORDERED: FLU VACCINE QUAD 60 MCG/0.5 ML (MDV 19-20) IM ONE (12:00)
[2019-03-28 17:17] VITALS: BP 123/71; PULSE 78; TEMP 98.2
[2019-03-28] MEDS: chlordiazePOXIDE HCL 10 MG CAPSULE PO PRN (18:32)
--- NOTE | 2019-03-28 20:00 | DS ---
[facility] Detox Discharge Summary Admission Date: 03/27/19 Discharge Date: 03/28/19 - History Present History: Alcohol Dependence, Cannabis Dependence, Cocaine Dependence, Opioid Dependence Additional Comments: CLIENT SIGNED OUT AMA. NOT OPEN TO DISCUSSION OR ENCOURAGEMENT TO CONTINUE TXMENT. DENIES SI/HI./AVH Pertinent Past History: HIV HEP C DEPRESSION MMTP - Physical Exam Results Vital Signs: Vital Signs Temperature 98.2 F 03/28/19 17:16 Pulse Rate 78 03/28/19 17:16 Respiratory Rate 18 03/28/19 17:16 Blood Pressure 123/71 03/28/19 17:16 O2 Sat by Pulse Oximetry (%) Pertinent Admission Physical Exam Findings: WITHDRAWAL SX'S Laboratory Tests 03/27/19 03/27/19 03/27/19 12:50 12:50 12:50 WBC 3.6 L RBC 3.98 Hgb 11.7 Hct 35.9 MCV 90.2 MCH 29.4 MCHC 32.6 RDW 15.8 H D Plt Count 170 D MPV 9.6 D Sodium 134 L Potassium 4.0 Chloride 103 Carbon Dioxide 23 Anion Gap 8 BUN 9.0 Creatinine 0.8 Est GFR (CKD-EPI)AfAm 96.87 Est GFR (CKD-EPI)NonAf 83.58 Random Glucose 95 Calcium 8.8 Total Bilirubin 0.4 AST 108 H ALT 67 H Alkaline Phosphatase 76 Total Protein 10.0 H Albumin 3.5 POC Urine HCG, Qual Negative RPR Titer 03/27/19 12:50 WBC RBC Hgb Hct MCV MCH MCHC RDW Plt Count MPV Sodium Potassium Chloride Carbon Dioxide Anion Gap BUN Creatinine Est GFR (CKD-EPI)AfAm Est GFR (CKD-EPI)NonAf Random Glucose Calcium Total Bilirubin AST ALT Alkaline Phosphatase Total Protein Albumin POC Urine HCG, Qual RPR Titer Nonreactive - Treatment Hospital Course: Discharged Condition Good Patient has Accepted a Rehab Referral to: declined - Medication Discharge Medications: Ambulatory Orders Escitalopram Oxalate [Lexapro -] 20 mg PO DAILY #30 tablet 07/10/16 Bictegrav/Emtricit/Tenofov Ala [Biktarvy 50-200-25 mg Tablet] 1 tablet PO DAILY 11/17/18 Methadone [Dolophine -] 35 mg PO DAILY 03/27/19 - Diagnosis (1) Cannabis dependence Status: Chronic (2) Cocaine dependence Status: Chronic (3) Nicotine dependence Status: Chronic (4) Opioid dependence on agonist therapy Status: Chronic - AMA Did Patient Leave Against Medical Advice: Yes
[2019-03-29] MEDS ORDERED: chlordiazePOXIDE HCL 10 MG CAPSULE PO SCH (05:00)
[2019-03-29] MEDS ORDERED: diazePAM 5 MG TABLET PO ONE (06:00)
[2019-03-29] MEDS ORDERED: ESCITALOPRAM OXALATE 10 MG TABLET PO SCH (10:00)
[2019-03-30] MEDS ORDERED: chlordiazePOXIDE HCL 10 MG CAPSULE PO ONE (05:00)
== END 2019-03-28 19:48 | disposition left against medical advice (07) | DRG 770 ==
LOC: YASAS 09:40 → Y6N 12:50
PROVIDERS: ADMIT Allergy & Immunology; ATTEND Allergy & Immunology
PROC: HZ2ZZZZ Detoxification Services for Substance Abuse Treatment (ICD-10-PCS; principal; 2019-03-27)
DX: F10.230 Alcohol dependence with withdrawal, uncomplicated (principal); F10.220 Alcohol dependence with intoxication, uncomplicated; F11.20 Opioid dependence, uncomplicated; F14.20 Cocaine dependence, uncomplicated; F12.20 Cannabis dependence, uncomplicated; F17.210 Nicotine dependence, cigarettes, uncomplicated; F19.24 Other psychoactive substance dependence with psychoactive substance-induced mood disorder; Z21 Asymptomatic human immunodeficiency virus [HIV] infection status; Z87.42 Personal history of other diseases of the female genital tract; Z91.14 Patient's other noncompliance with medication regimen
CPT/HCPCS: 36415; 80053; 81025; 85027; 86593; G0008; Q0162; Q2036

== ENCOUNTER 2019-12-06 12:15 | Inpatient (IN) | payer OTHER ==
--- NOTE | 2019-12-06 13:13 | BHS.RME ---
Substance Use & Tx History - Substance Use History Alcohol Substance amount: 6-8 cans malt liquors Frequency of use: Daily Substance route: Oral Date of Last Use: 12/06/19 Heroin Substance amount: 3 bags Frequency of use: Less than 3 times per week Substance route: Injection (ex: intravenous or skin popping) Date of Last Use: 12/03/19 Cocaine-Crack Substance amount: $40 Frequency of use: Daily Substance route: Smoking Date of Last Use: 12/05/19 Nicotine Substance amount: 3 ciggs Frequency of use: Daily Substance route: Smoking Date of Last Use: 12/06/19 - Last Treatment Date of last treatment: 03/2019 left AMA Treatment type: Substance Use Disorder (RAMIRO) Where was last treatment: Detox Physical/Psych/Mental Status - Behavior General Behavior: Increased activity (restlessness, agitation) Eye Contact: Normal - Cooperativeness Cooperativeness: Cooperative - Thinking Thought Processes: Tight, Logical, Goal Directed - Physical Health Problems Is patient presently having any pain?: No Does patient presently have any injuries (include location): No Does patient currently have a fever: No Is patient : No CIWA Nausea/Vomitin Muscle Tremors: 2 Anxiety: 4-Mod. Anxious/Guarded Agitation: 4-Moderately Restless Paroxysmal Sweats: 1-Minimal Palms Moist Orientation: 0-Oriented Tacttile Disturbances: 2-Mild Itch/Numbness/Burn Auditory Disturbances: 0-None Visual Disturbances: 1-Very Mild Sensitivity Headache: 0-None Present CIWA-Ar Total Score: 16
--- NOTE | 2019-12-06 13:37 | HP ---
CIWA Score Nausea/Vomitin Muscle Tremors: 2 Anxiety: 4-Mod. Anxious/Guarded Agitation: 4-Moderately Restless Paroxysmal Sweats: 1-Minimal Palms Moist Orientation: 0-Oriented Tacttile Disturbances: 2-Mild Itch/Numbness/Burn Auditory Disturbances: 0-None Visual Disturbances: 1-Very Mild Sensitivity Headache: 0-None Present CIWA-Ar Total Score: 16 - Admission Criteria OASAS Guidelines: Admission for Medically Managed Detox: Requires at least one of the followin. CIWA greater than 12 2. Seizures within the past 24 hours 3. Delirium tremens within the past 24 hours 4. Hallucinations within the past 24 hours 5. Acute intervention needed for co occurring medical disorder 6. Acute intervention needed for co occurring psychiatric disorder 7. Severe withdrawal that cannot be handled at a lower level of care (continued vomiting, continued diarrhea, abnormal vital signs) requiring intravenous medication and/or fluids 8. Admitting History and Physical - Admission Chief Complaint: " I want to get off of these percocets" History of Present Illness: 54 year old female with history of spinal surgery and prescribed percocets. She is seeking detox to maintain abstinence from oral opioids. She was using street percocet 10-325mg tabs street pills. History Source: Patient Limitations to Obtaining History: No Limitations - Past Medical History ...LMP: 04/21/11 - Past Surgical History Past Surgical History: Yes: None - Smoking History Smoking history: Current every day smoker Have you smoked in the past 12 months: Yes Aproximately how many cigarettes per day: 10 - Alcohol/Substance Use Hx Alcohol Use: Yes - Social History Usual Living Arrangement: Yes: Alone Do you think of yourself as: Straight/Heterosexual ADL: Independent History of Recent Travel: No Admission [facility] Allergies/Adverse Reactions: Allergies Allergy/AdvReac Type Severity Reaction Status Date / Time No Known Allergies Allergy Verified 12/06/19 15:32 Exam Limitations: No Limitations - Ebola screening Have you traveled outside of the country in the last 21 days: No Have you had contact with anyone from an Ebola affected area: No Have you been sick,other than usual withdrawal symptoms: No Do you have a fever: No - Review of Systems Constitutional: No Symptoms Reported EENT: reports: No Symptoms Reported Respiratory: reports: No Symptoms reported Cardiac: reports: No Symptoms Reported GI: reports: No Symptoms Reported : reports: No Symptoms Reported Musculoskeletal: reports: No Symptoms Reported Integumentary: reports: No Symptoms Reported Neuro: reports: No Symptoms reported Endocrine: reports: No Symptoms Reported Hematology: reports: No Symptoms Reported Psychiatric: reports: Judgement Intact, Mood/Affect Appropiate, Orientated x3, Agitated, Anxious Other Systems: Reviewed and Negative Patient History - Patient Medical History Hx Anemia: No Hx Asthma: No Hx Chronic Obstructive Pulmonary Disease (COPD): No Hx Cancer: No Hx Cardiac Disorders: No Hx Congestive Heart Failure: No Hx Hypertension: No Hx Hypercholesterolemia: No Hx Pacemaker: No HX Cerebrovascular Accident: No Hx Seizures: No Hx Dementia: No Hx Diabetes: No Hx Gastrointestinal Disorders: No Hx Liver Disease: No Hx Genitourinary Disorders: No Hx Sexually Transmitted Disorders: Yes ( ) Hx Renal Disease (ESRD): No Hx Thyroid Disease: No Hx Human Immunodeficiency Virus (HIV): Yes (1995 ) Hx Hepatitis C: Yes Hx Depression: Yes Hx Suicide Attempt: No Hx Bipolar Disorder: No Hx Schizophrenia: No - Patient Surgical History Past Surgical History: No Hx Neurologic Surgery: No Hx Cataract Extraction: No Hx Cardiac Surgery: No Hx Lung Surgery: No Hx Breast Surgery: No Hx Breast Biopsy: No Hx Abdominal Surgery: No Hx Appendectomy: No Hx Cholecystectomy: No Hx Genitourinary Surgery: No Hx Section: No Hx Orthopedic Surgery: No Hx Hysterectomy: No Anesthesia Reaction: No - PPD History Date: 07/08/16 Results: 0mm - Reproductive History Last Menstrual Period: 04/21/11 - Smoking Cessation Smoking history: Current every day smoker Have you smoked in the past 12 months: Yes Aproximately how many cigarettes per day: 10 Cigars Per Day: 0 Hx Chewing Tobacco Use: No Initiated information on smoking cessation: Yes 'Breaking Loose' booklet given: 12/06/19 - Substances abused Alcohol Substance route: Smoking Frequency: Daily Amount used: (8) 22 cans of beer Age of first use: 13 Date of last use: 12/06/19 Heroin Substance route: Injection Frequency: 3-6 times per week Amount used: 1 bag Age of first use: 30 Date of last use: 12/03/19 Cocaine Substance route: Smoking Frequency: 3-6 times per week Amount used: $40 Age of first use: 30 Date of last use: 12/03/19 Cleared for Admission [facility] - Detox or Rehab [facility] Level of Care: Medically Managed Detox Regimen/Protocol: Librium Claeared for Rehab Admission: No Screened but not Admitted - Documentation of Visit Screened but not Admitted: No Breathalyzer - Breathalyzer Breathalyzer: 0.104 Urine Drug Screen - Test Device Lot number: [id number] Expiration date: 11/08/20 - Control Is test valid?: Yes - Results Drug screen NEGATIVE: No Urine drug screen results: THC-Marijuana, CAROLYN-Cocaine, MET-Methamphetamine, AMP- Amphetamines, MTD-Methadone Inpatient Rehab Admission - Rehab Decision to Admit Inpatient rehab admission?: No
--- NOTE | 2019-12-06 14:56 | HP ---
COWS - Scale Resting Pulse: 0= [place] 80 or Below Sweatin= No chills or Flushing Restless Observation: 0= Sits Still Pupil Size: 1= Pupils >than Normal Bone or Joint Aches: 0= None Runny Nose/ Eye Tearin= None GI Upset > 30mins: 2= Nausea/Diarrhea Tremor Observation: 1= Tremor [place], Not Seen Yawning Observation: 1= 1-2x During Session Anxiety or Irritability: 4=Extreme Anxiety Goose Flesh Skin: 0=Smooth Skin (Cows 9, not fully in withdrawal) COWS Score: 9 CIWA Score Nausea/Vomitin Muscle Tremors: 2 Anxiety: 4-Mod. Anxious/Guarded Agitation: 4-Moderately Restless Paroxysmal Sweats: 1-Minimal Palms Moist Orientation: 0-Oriented Tacttile Disturbances: 2-Mild Itch/Numbness/Burn Auditory Disturbances: 0-None Visual Disturbances: 1-Very Mild Sensitivity Headache: 0-None Present CIWA-Ar Total Score: 16 - Admission Criteria OASAS Guidelines: Admission for Medically Managed Detox: Requires at least one of the followin. CIWA greater than 12 2. Seizures within the past 24 hours 3. Delirium tremens within the past 24 hours 4. Hallucinations within the past 24 hours 5. Acute intervention needed for co occurring medical disorder 6. Acute intervention needed for co occurring psychiatric disorder 7. Severe withdrawal that cannot be handled at a lower level of care (continued vomiting, continued diarrhea, abnormal vital signs) requiring intravenous medication and/or fluids 8. Admitting History and Physical - Primary Care Physician PCP: Dr. Altamirano - Admission Chief Complaint: Detox History of Present Illness: Patient is a 54 y.o. F PMHx of HIV and Hep C. Patient presents to [facility] for detox. Patient endorses Alcohol use 6-8 cans of malt liquor a day no seizures, last blackout 3 days ago and has an eye obgyn specialist, Uses 3 bags of heroin a week and has overdoses 3 times. Pt uses crack 40$ a day and smokes 3 cigarettes a day. - Substance Use History Alcohol Substance amount: 6-8 cans malt liquors Frequency of use: Daily Substance route: Oral Date of Last Use: 12/06/19 Heroin Substance amount: 3 bags Frequency of use: Less than 3 times per week Substance route: Injection (ex: intravenous or skin popping) Date of Last Use: 12/03/19 Cocaine-Crack Substance amount: $40 Frequency of use: Daily Substance route: Smoking Date of Last Use: 12/05/19 Nicotine Substance amount: 3 ciggs Frequency of use: Daily Substance route: Smoking Date of Last Use: 12/06/19 History Source: Patient Limitations to Obtaining History: No Limitations - Past Medical History RESIDENTIAL CONCIERGE: No: Seizure Cardiovascular: No: HTN, Hyperlipdemia Gastrointestinal: Yes: Constipation. No: GI Bleed, Pancreatitis Hepatobiliary: Yes: Hepatitis C. 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 History of Recent Travel: No Admission [facility] Allergies/Adverse Reactions: Allergies Allergy/AdvReac Type Severity Reaction Status Date / Time No Known Allergies Allergy Verified 12/06/19 15:32 - Ebola screening Have you traveled outside of the country in the last 21 days: No Have you had contact with anyone from an Ebola affected area: No Have you been sick,other than usual withdrawal symptoms: No Do you have a fever: No - Review of Systems Constitutional: No Symptoms Reported Respiratory: denies: Cough, Shortness of Breath Cardiac: denies: Chest Pain, Lightheadedness GI: reports: Constipated, Nausea. denies: Vomiting Neuro: reports: Tingling (finger tips and toes) Psychiatric: reports: Judgement Intact, Mood/Affect Appropiate, Orientated x3, Anxious, Depressed Patient History - Patient Medical History Hx Anemia: No Hx Asthma: No Hx Chronic Obstructive Pulmonary Disease (COPD): No Hx Cancer: No Hx Cardiac Disorders: No Hx Congestive Heart Failure: No Hx Hypertension: No Hx Hypercholesterolemia: No Hx Pacemaker: No HX Cerebrovascular Accident: No Hx Seizures: No Hx Dementia: No Hx Diabetes: No Hx Gastrointestinal Disorders: No Hx Liver Disease: No Hx Genitourinary Disorders: No Hx Sexually Transmitted Disorders: Yes (HIV ) Hx Renal Disease (ESRD): No Hx Thyroid Disease: No Hx Human Immunodeficiency Virus (HIV): Yes (1995 ) Hx Hepatitis C: Yes Hx Depression: Yes Hx Suicide Attempt: No Hx Bipolar Disorder: No Hx Schizophrenia: No - Patient Surgical History Past Surgical History: No Hx Neurologic Surgery: No Hx Cataract Extraction: No Hx Cardiac Surgery: No Hx Lung Surgery: No Hx Breast Surgery: No Hx Breast Biopsy: No Hx Abdominal Surgery: No Hx Appendectomy: No Hx Cholecystectomy: No Hx Genitourinary Surgery: No Hx Section: No Hx Orthopedic Surgery: No Hx Hysterectomy: No Anesthesia Reaction: No - PPD History Date: 07/08/16 Results: 0mm - Reproductive History Last Menstrual Period: 04/21/11 - Smoking Cessation Smoking history: Current every day smoker Have you smoked in the past 12 months: Yes Aproximately how many cigarettes per day: 10 Cigars Per Day: 0 Hx Chewing Tobacco Use: No Initiated information on smoking cessation: Yes 'Breaking Loose' booklet given: 12/06/19 Admission Physical Exam [facility] - Physical General Appearance: Yes: Within Normal Limits, No Apparent Distress, Nourished, Appropriately Dressed Respiratory: Yes: Within Normal Limits, Lungs Clear, Normal Breath Sounds, No Accessory Muscle Use. No: No Respiratory Distress Cardiology: Yes: Within Normal Limits, Regular Rhythm, Regular Rate Abdominal: Yes: Within Normal Limits, Normal Bowel Sounds, Non Tender, Flat, Soft Extremities: Yes: Within Normal Limits, Normal Inspection, Non-Tender Neurological: Yes: Within Normal Limits, Fully Oriented, Alert, Normal Mood/Affect, Normal Response Integumentary: Yes: Within Normal Limits, Normal Color, Dry, Warm - Diagnostic (1) Alcohol dependence in early, early partial, sustained full, or sustained partial remission Current Visit: No Status: Acute (2) Alcohol dependence with withdrawal Current Visit: No Status: Acute Qualifiers: Complication of substance-induced condition: uncomplicated Qualified Code(s): F10.230 - Alcohol dependence with withdrawal, uncomplicated (3) Alcohol intoxication Current Visit: No Status: Acute Qualifiers: Complication of substance-induced condition: uncomplicated Qualified Code(s): F10.920 - Alcohol use, unspecified with intoxication, uncomplicated (4) Cocaine dependence in early, early partial, sustained full, or sustained partial remission Current Visit: No Status: Acute (5) MDD (major depressive disorder), single episode, moderate Current Visit: No Status: Acute (6) Substance induced mood disorder Current Visit: No Status: Acute (7) Alcohol dependence Current Visit: No Status: Chronic (8) Cannabis dependence Current Visit: No Status: Chronic (9) Cocaine dependence Current Visit: No Status: Chronic (10) Depression Current Visit: No Status: Chronic Qualifiers: Depression Type: major depressive disorder Major depression recurrence: recurrent Active/Remission status: in partial remission Qualified Code(s): F33.41 - Major depressive disorder, recurrent, in partial remission Comment: LEXAPRO (11) HIV disease Current Visit: No Status: Chronic Comment: currently on antiviral medication; pt did not bring them she has at home. (12) Hepatitis C Current Visit: No Status: Chronic Qualifiers: Viral hepatitis chronicity: chronic Hepatic coma status: without hepatic coma Qualified Code(s): B18.2 - Chronic viral hepatitis C (13) History of HIV infection Current Visit: No Status: Chronic (14) History of depression Current Visit: No Status: Chronic Comment: As per history and records. Non- compliant with medications. (15) IV drug user Current Visit: No Status: Chronic (16) MDD (major depressive disorder) Current Visit: No Status: Chronic (17) Opioid dependence on agonist therapy Current Visit: No Status: Chronic Cleared for Admission S - Detox or Rehab [facility] Level of Care: Medically Managed Breathalyzer - Breathalyzer Breathalyzer: 0.068 Vital Signs - Vital Signs Vital signs refused: No Temperature: 97.5 F Pulse Rate: 67 Respiratory Rate: 14 Blood Pressure: 110/75 - Height Height: 1.6 m - Weight Weight: 124 kg - BMI Body Mass Index (BMI): 48.4 Urine Drug Screen - Test Device Lot number: [id number] Expiration date: 07/17/21 - Control Is test valid?: Yes - Results Drug screen NEGATIVE: No Urine drug screen results: CAROLYN-Cocaine, MTD-Methadone Inpatient Rehab Admission - Rehab Decision to Admit Inpatient rehab admission?: No
[2019-12-06] MEDS ORDERED: MAG HYDROX/AL HYDROX/SIMETH 30 ML UNIT-DOSE CUP PO PRN (15:04)
[2019-12-06] MEDS ORDERED: chlordiazePOXIDE HCL 25 MG CAPSULE PO PRN (15:04)
[2019-12-06] MEDS ORDERED: MAGNESIUM HYDROX 2400MG/30ML ORAL SUSPENSION 30 ML CUP PO PRN (15:04)
[2019-12-06] MEDS ORDERED: IBUPROFEN 400 MG TABLET (FP) PO PRN (15:04)
[2019-12-06] MEDS ORDERED: METHOCARBAMOL 500 MG TABLET PO PRN (15:04)
[2019-12-06] MEDS ORDERED: cloNIDine HCL 0.1 MG TABLET PO PRN (15:04)
[2019-12-06] MEDS ORDERED: MENTHOL/PHENOL 1 EACH UD MM PRN (15:04)
[2019-12-06] MEDS ORDERED: NICOTINE POLACRILEX 2 MG GUM BUC PRN (15:04)
[2019-12-06] MEDS ORDERED: MAGNESIUM CITRATE 300 ML BOTTLE PO PRN (15:04)
[2019-12-06] MEDS ORDERED: ACETAMINOPHEN 325 MG TABLET (FP) PO PRN ×2 (15:04)
[2019-12-06] MEDS ORDERED: BISMUTH SUBSALICYLATE 524 MG/30 ML UD PO PRN (15:04)
[2019-12-06] MEDS ORDERED: ONDANSETRON *ODT* 4 MG TABLET SL ONE (16:00)
[2019-12-06] MEDS ORDERED: METHADONE HCL 10 MG TABLET (FOR DETOX USE ONLY) PO ONE (16:00)
[2019-12-06 16:08] VITALS: BMI 48.4
[2019-12-06 18:09] LABS: HEMATOCRIT 33.5 % (32.4-45.2); MCH 31.3 pg (25.7-33.7); MCHC 32.8 g/dl (32.0-36.0); MEAN CELL VOLUME 95.3 fl (80-96); MEAN PLT VOLUME 9.6 fl (7.5-11.1); PLATELET COUNT 141 K/MM3 (134-434); RBC 3.52 M/mm3 (3.60-5.2); RDW 16.9 % (11.6-15.6); WHITE BLOOD COUNT 3.8 K/mm3 (4.0-10.0)
[2019-12-06 18:18] LABS: ALBUMIN 3.1 g/dl (3.4-5.0); BILIRUBIN,TOTAL 0.6 mg/dL (0.2-1); BLOOD UREA NITROGEN 6.3 mg/dL (7-18); CALCIUM 8.7 mg/dL (8.5-10.1); CREATININE 0.8 mg/dL (0.55-1.3); POTASSIUM 4.2 mmol/L (3.5-5.1); TOT PROT 9.8 g/dl (6.4-8.2)
[2019-12-06] MEDS: chlordiazePOXIDE HCL 25 MG CAPSULE PO SCH ×2 (18:25→22:34)
[2019-12-06] MEDS: hydrOXYzine PAMOATE 25 MG CAPSULE (FP) PO SCH ×2 (19:06→22:34)
[2019-12-06] MEDS ORDERED: MELATONIN 5 MG TABLETS PO SCH (22:00)
[2019-12-06] MEDS: THIAMINE HCL 100 MG TABLET (FP) PO SCH (22:34)
[2019-12-07] MEDS: hydrOXYzine PAMOATE 25 MG CAPSULE (FP) PO SCH ×2 (06:00→11:18)
[2019-12-07] MEDS: chlordiazePOXIDE HCL 25 MG CAPSULE PO SCH ×4 (06:00→22:31)
[2019-12-07] MEDS ORDERED: METHADONE HCL 40 MG DISPERSABLE TABLET PO ONE (08:40)
--- NOTE | 2019-12-07 09:15 | PN ---
Teaching Attending Note Name of Resident: Jared Julio ATTENDING PHYSICIAN STATEMENT I saw and evaluated the patient. I reviewed the resident's note and discussed the case with the resident. I agree with the resident's findings and plan as documented. SUBJECTIVE: OBJECTIVE: ASSESSMENT AND PLAN: Agree with resident's findings and plan for detox.
[2019-12-07] MEDS ORDERED: ESCITALOPRAM OXALATE 20 MG TABLET PO SCH (10:00)
[2019-12-07] MEDS ORDERED: METHADONE HCL 5 MG TABLET (FOR DETOX USE ONLY) PO ONE (10:00)
[2019-12-07] MEDS: NICOTINE 7 MG/24 HOURS TOPICAL PATCH TD SCH (11:18)
[2019-12-07] MEDS: PRENATAL VITAMINS W/ FOLIC ACID TABLET (FP) PO SCH (11:18)
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
--- NOTE | 2019-12-07 13:47 | PN ---
[facility] CIWA - CIWA Score Nausea/Vomitin-No Nausea/No Vomiting Muscle Tremors: 3 Anxiety: 2 Agitation: 3 Paroxysmal Sweats: 2 Orientation: 0-Oriented Tacttile Disturbances: 0-None Auditory Disturbances: 0-None Visual Disturbances: 0-None Headache: 0-None Present CIWA-Ar Total Score: 10 S Progress Note (SOAP) Subjective: sweats body aches interrupted sleep agitation restless Objective: 12/07/19 13:46 Vital Signs Temperature 97.2 F L 12/07/19 09:06 Pulse Rate 62 12/07/19 09:06 Respiratory Rate 16 12/07/19 09:06 Blood Pressure 110/71 12/07/19 09:06 O2 Sat by Pulse Oximetry (%) 99 12/07/19 05:49 Laboratory Tests 12/06/19 12/06/19 12/06/19 14:30 14:50 14:50 WBC 3.8 L RBC 3.52 L Hgb 11.0 Hct 33.5 MCV 95.3 MCH 31.3 MCHC 32.8 RDW 16.9 H Plt Count 141 MPV 9.6 Sodium Potassium Chloride Carbon Dioxide Anion Gap BUN Creatinine Est GFR (CKD-EPI)AfAm Est GFR (CKD-EPI)NonAf Random Glucose Calcium Total Bilirubin AST ALT Alkaline Phosphatase Total Protein Albumin POC Urine HCG, Qual Negative Syphilis Serology Non-reactive 12/06/19 14:50 WBC RBC Hgb Hct MCV MCH MCHC RDW Plt Count MPV Sodium 135 L Potassium 4.2 Chloride 106 Carbon Dioxide 22 Anion Gap 7 L BUN 6.3 L Creatinine 0.8 Est GFR (CKD-EPI)AfAm 96.19 Est GFR (CKD-EPI)NonAf 83.00 Random Glucose 88 Calcium 8.7 Total Bilirubin 0.6 AST 227 H ALT 91 H Alkaline Phosphatase 175 H Total Protein 9.8 H Albumin 3.1 L POC Urine HCG, Qual Syphilis Serology labs noted elevated ast/alt noted encourage fluids repeat labs aaox3 lying in bed no acute distress Assessment: 12/07/19 13:47 withdrawals Plan: continue detox repeat labs
[2019-12-07] MEDS ORDERED: MELATONIN 5 MG TABLETS PO PRN (14:30)
[2019-12-07] MEDS: THIAMINE HCL 100 MG TABLET (FP) PO SCH (22:32)
[2019-12-07] MEDS: MELATONIN 5 MG TABLETS PO PRN (22:32)
[2019-12-08] MEDS: METHADONE HCL 40 MG DISPERSABLE TABLET PO SCH (06:37)
[2019-12-08] MEDS: chlordiazePOXIDE HCL 25 MG CAPSULE PO SCH ×5 (06:37→22:23)
[2019-12-08] MEDS ORDERED: METHADONE HCL 10 MG TABLET (FOR DETOX USE ONLY) PO ONE (10:00)
[2019-12-08] MEDS: NICOTINE 7 MG/24 HOURS TOPICAL PATCH TD SCH (10:38)
[2019-12-08] MEDS: PRENATAL VITAMINS W/ FOLIC ACID TABLET (FP) PO SCH (10:39)
[2019-12-08] MEDS: ESCITALOPRAM OXALATE 10 MG TABLET PO SCH (10:39)
--- NOTE | 2019-12-08 10:44 | PN ---
[facility] CIWA - CIWA Score Nausea/Vomitin-No Nausea/No Vomiting Muscle Tremors: 2 Anxiety: 2 Agitation: 2 Paroxysmal Sweats: 2 Orientation: 0-Oriented Tacttile Disturbances: 0-None Auditory Disturbances: 0-None Visual Disturbances: 0-None Headache: 0-None Present CIWA-Ar Total Score: 8 [facility] Progress Note (SOAP) Subjective: Complaints of sweats, agitation, anxiety, and body aches. Objective: 12/08/19 10:43 Vital Signs 12/08/19 06:22 Temperature 98 F Pulse Rate 60 Respiratory 18 Rate Blood Pressure 112/68 O2 Sat by Pulse 96 Oximetry (%) Assessment: 12/08/19 10:43 Patient was seen and evaluated at bedside, alert and oriented x3, in no acute respiratory distress. Full ROM, ambulating without assistance. Skin warm to touch without lesion. Withdrawal symptoms. Plan: Continue detox protocol.
[2019-12-08 12:30] LABS: BASO % 1.3 % (0-2.0); EOS % 3.7 % (0-4.5); HEMATOCRIT 34.8 % (32.4-45.2); HEMOGLOBIN 11.4 GM/dL (10.7-15.3); LYMPH % 64.1 % (8-40); MCH 30.5 pg (25.7-33.7); MCHC 32.7 g/dl (32.0-36.0); MEAN CELL VOLUME 93.5 fl (80-96); MEAN PLT VOLUME 9.7 fl (7.5-11.1); MONO % 13.1 % (3.8-10.2); NEUT % 17.8 % (42.8-82.8); PLATELET COUNT 127 K/MM3 (134-434); RBC 3.72 M/mm3 (3.60-5.2); RDW 16.4 % (11.6-15.6); WHITE BLOOD COUNT 4.1 K/mm3 (4.0-10.0)
[2019-12-08 12:42] LABS: ALBUMIN 3.1 g/dl (3.4-5.0); BILIRUBIN,TOTAL 0.6 mg/dL (0.2-1); BLOOD UREA NITROGEN 15.8 mg/dL (7-18); CALCIUM 9.1 mg/dL (8.5-10.1); POTASSIUM 4.5 mmol/L (3.5-5.1); TOT PROT 9.5 g/dl (6.4-8.2)
[2019-12-08 14:20] LABS: ANISOCYTOSIS 0; MACROCYTOSIS 0; PLATELET ESTIMATE DECREASED
[2019-12-08] MEDS: hydrOXYzine PAMOATE 25 MG CAPSULE (FP) PO PRN ×2 (17:49→22:24)
[2019-12-08] MEDS: MELATONIN 5 MG TABLETS PO PRN (22:23)
[2019-12-08] MEDS: THIAMINE HCL 100 MG TABLET (FP) PO SCH (22:23)
[2019-12-09] MEDS ORDERED: chlordiazePOXIDE HCL 10 MG CAPSULE PO PRN
[2019-12-09] MEDS: chlordiazePOXIDE HCL 10 MG CAPSULE PO SCH ×4 (05:53→22:48)
[2019-12-09] MEDS: METHADONE HCL 40 MG DISPERSABLE TABLET PO SCH (05:53)
[2019-12-09] MEDS ORDERED: METHADONE HCL 5 MG TABLET (FOR DETOX USE ONLY) PO ONE (06:00)
[2019-12-09] MEDS: NICOTINE 7 MG/24 HOURS TOPICAL PATCH TD SCH (11:00)
[2019-12-09] MEDS: ESCITALOPRAM OXALATE 10 MG TABLET PO SCH (11:00)
[2019-12-09] MEDS: PRENATAL VITAMINS W/ FOLIC ACID TABLET (FP) PO SCH (11:00)
--- NOTE | 2019-12-09 18:21 | PN ---
S CIWA - CIWA Score Nausea/Vomitin-No Nausea/No Vomiting Muscle Tremors: 2 Anxiety: 2 Agitation: 1-Slight > Activity Paroxysmal Sweats: 1-Minimal Palms Moist Orientation: 0-Oriented Tacttile Disturbances: 0-None Auditory Disturbances: 0-None Visual Disturbances: 0-None Headache: 0-None Present CIWA-Ar Total Score: 6 [facility] Progress Note (SOAP) Subjective: Tremor, constipation since admission (instructed to notify nurse), feels weak, interrupted sleep Objective: 12/09/19 18:17 Last Vital Signs Temp Pulse Resp BP Pulse Ox 97.3 F L 71 18 96/64 96 12/09/19 17:06 12/09/19 17:06 12/09/19 17:06 12/09/19 17:06 12/09/19 13:30 Laboratory Tests 12/06/19 12/06/19 12/06/19 14:30 14:50 14:50 WBC 3.8 L RBC 3.52 L Hgb 11.0 Hct 33.5 MCV 95.3 MCH 31.3 MCHC 32.8 RDW 16.9 H Plt Count 141 MPV 9.6 Absolute Neuts (auto) Neutrophils % Neutrophils % (Manual) Band Neutrophils % Lymphocytes % Lymphocytes % (Manual) Monocytes % Monocytes % (Manual) Eosinophils % Eosinophils % (Manual) Basophils % Basophils % (Manual) Myelocytes % (Man) Promyelocytes % (Man) Blast Cells % (Manual) Nucleated RBC % Metamyelocytes Hypochromia Platelet Estimate Polychromasia Poikilocytosis Anisocytosis Microcytosis Macrocytosis Sodium Potassium Chloride Carbon Dioxide Anion Gap BUN Creatinine Est GFR (CKD-EPI)AfAm Est GFR (CKD-EPI)NonAf Random Glucose Calcium Total Bilirubin AST ALT Alkaline Phosphatase Total Protein Albumin POC Urine HCG, Qual Negative Syphilis Serology Non-reactive COVID-19 (LEÓN) 12/06/19 12/06/19 12/08/19 14:50 17:55 07:50 WBC 4.1 RBC 3.72 Hgb 11.4 Hct 34.8 MCV 93.5 MCH 30.5 MCHC 32.7 RDW 16.4 H Plt Count 127 L MPV 9.7 Absolute Neuts (auto) 0.7 L Neutrophils % 17.8 L Neutrophils % (Manual) 16.5 L Band Neutrophils % 0.0 Lymphocytes % 64.1 H Lymphocytes % (Manual) 59.2 H Monocytes % 13.1 H Monocytes % (Manual) 18 H Eosinophils % 3.7 Eosinophils % (Manual) 1.9 Basophils % 1.3 Basophils % (Manual) 4.9 H Myelocytes % (Man) 0 Promyelocytes % (Man) 0 Blast Cells % (Manual) 0 Nucleated RBC % 0 Metamyelocytes 0 Hypochromia 0 Platelet Estimate Decreased Polychromasia 0 Poikilocytosis 0 Anisocytosis 0 Microcytosis 0 Macrocytosis 0 Sodium 135 L Potassium 4.2 Chloride 106 Carbon Dioxide 22 Anion Gap 7 L BUN 6.3 L Creatinine 0.8 Est GFR (CKD-EPI)AfAm 96.19 Est GFR (CKD-EPI)NonAf 83.00 Random Glucose 88 Calcium 8.7 Total Bilirubin 0.6 AST 227 H ALT 91 H Alkaline Phosphatase 175 H Total Protein 9.8 H Albumin 3.1 L POC Urine HCG, Qual Syphilis Serology COVID-19 (LEÓN) Not detected 12/08/19 07:50 WBC RBC Hgb Hct MCV MCH MCHC RDW Plt Count MPV Absolute Neuts (auto) Neutrophils % Neutrophils % (Manual) Band Neutrophils % Lymphocytes % Lymphocytes % (Manual) Monocytes % Monocytes % (Manual) Eosinophils % Eosinophils % (Manual) Basophils % Basophils % (Manual) Myelocytes % (Man) Promyelocytes % (Man) Blast Cells % (Manual) Nucleated RBC % Metamyelocytes Hypochromia Platelet Estimate Polychromasia Poikilocytosis Anisocytosis Microcytosis Macrocytosis Sodium 134 L Potassium 4.5 Chloride 98 Carbon Dioxide 34 H Anion Gap 2 L BUN 15.8 Creatinine 1.0 Est GFR (CKD-EPI)AfAm 73.45 Est GFR (CKD-EPI)NonAf 63.37 Random Glucose 92 Calcium 9.1 Total Bilirubin 0.6 AST 110 H ALT 69 H Alkaline Phosphatase 143 H Total Protein 9.5 H Albumin 3.1 L POC Urine HCG, Qual Syphilis Serology COVID-19 (LEÓN) Labs reviewed: abnormal LFTs noted (trending downward) Assessment: 12/09/19 18:19 Withdrawal sxs Noted with increased LFTs Plan: Continue detox Encourage PO water intake Increased LFTs: trending downward, discontinue tylenol, follow up with PCP for m onitoring post discharge
[2019-12-09] MEDS: THIAMINE HCL 100 MG TABLET (FP) PO SCH (22:48)
[2019-12-10] MEDS: METHADONE HCL 40 MG DISPERSABLE TABLET PO SCH (05:38)
[2019-12-10] MEDS: chlordiazePOXIDE HCL 10 MG CAPSULE PO SCH ×2 (05:38→18:01)
[2019-12-10] MEDS: PRENATAL VITAMINS W/ FOLIC ACID TABLET (FP) PO SCH (10:37)
[2019-12-10] MEDS: NICOTINE 7 MG/24 HOURS TOPICAL PATCH TD SCH (10:37)
[2019-12-10] MEDS: hydrOXYzine PAMOATE 25 MG CAPSULE (FP) PO PRN ×2 (10:37→22:35)
[2019-12-10] MEDS: ESCITALOPRAM OXALATE 10 MG TABLET PO SCH (10:37)
--- NOTE | 2019-12-10 11:21 | PN ---
[facility] CIWA - CIWA Score Nausea/Vomitin-No Nausea/No Vomiting Muscle Tremors: 1-None Visible, but [place] Anxiety: 1-Mildly Anxious Agitation: 1-Slight > Activity Paroxysmal Sweats: No Perspiration Orientation: 0-Oriented Tacttile Disturbances: 0-None Auditory Disturbances: 0-None Visual Disturbances: 0-None Headache: 0-None Present CIWA-Ar Total Score: 3 [facility] Progress Note (SOAP) Subjective: sweats agitation Objective: 12/10/19 11:20 Vital Signs Temperature 97.3 F L 12/10/19 09:14 Pulse Rate 75 12/10/19 09:14 Respiratory Rate 20 12/10/19 09:14 Blood Pressure 99/65 12/10/19 09:14 O2 Sat by Pulse Oximetry (%) 97 12/10/19 05:32 aaox3 ambulating no acute distress Assessment: 12/10/19 11:21 mild withdrawals Plan: continue detox increase fluids d/c in am
[2019-12-10] MEDS: MELATONIN 5 MG TABLETS PO PRN (22:35)
[2019-12-10] MEDS: THIAMINE HCL 100 MG TABLET (FP) PO SCH (22:35)
[2019-12-11] MEDS ORDERED: chlordiazePOXIDE HCL 10 MG CAPSULE PO ONE (05:00)
[2019-12-11] MEDS: METHADONE HCL 40 MG DISPERSABLE TABLET PO SCH (06:17)
[2019-12-11 09:36] VITALS: BP 111/58; PULSE 67; TEMP 97.5
[2019-12-11] MEDS: PRENATAL VITAMINS W/ FOLIC ACID TABLET (FP) PO SCH (10:15)
[2019-12-11] MEDS: ESCITALOPRAM OXALATE 10 MG TABLET PO SCH (10:15)
[2019-12-11] MEDS: NICOTINE 7 MG/24 HOURS TOPICAL PATCH TD SCH (10:15)
[2019-12-11] MEDS: hydrOXYzine PAMOATE 25 MG CAPSULE (FP) PO PRN (10:15)
--- NOTE | 2019-12-11 11:21 | DS ---
[facility] Detox Discharge Summary Admission Date: 12/06/19 Discharge Date: 12/11/19 - History Present History: Alcohol Dependence, Cocaine Dependence - Physical Exam Results Vital Signs: Vital Signs Temperature 97.5 F L 12/11/19 08:35 Pulse Rate 67 12/11/19 08:35 Respiratory Rate 16 12/11/19 08:35 Blood Pressure 111/58 L 12/11/19 08:35 O2 Sat by Pulse Oximetry (%) 98 12/11/19 07:15 Pertinent Admission Physical Exam Findings: Vital Signs Temperature 97.5 F L 12/11/19 08:35 Pulse Rate 67 12/11/19 08:35 Respiratory Rate 16 12/11/19 08:35 Blood Pressure 111/58 L 12/11/19 08:35 O2 Sat by Pulse Oximetry (%) 98 12/11/19 07:15 Laboratory Tests 12/06/19 12/06/19 12/06/19 14:30 14:50 14:50 WBC 3.8 L RBC 3.52 L Hgb 11.0 Hct 33.5 MCV 95.3 MCH 31.3 MCHC 32.8 RDW 16.9 H Plt Count 141 MPV 9.6 Absolute Neuts (auto) Neutrophils % Neutrophils % (Manual) Band Neutrophils % Lymphocytes % Lymphocytes % (Manual) Monocytes % Monocytes % (Manual) Eosinophils % Eosinophils % (Manual) Basophils % Basophils % (Manual) Myelocytes % (Man) Promyelocytes % (Man) Blast Cells % (Manual) Nucleated RBC % Metamyelocytes Hypochromia Platelet Estimate Polychromasia Poikilocytosis Anisocytosis Microcytosis Macrocytosis Sodium Potassium Chloride Carbon Dioxide Anion Gap BUN Creatinine Est GFR (CKD-EPI)AfAm Est GFR (CKD-EPI)NonAf Random Glucose Calcium Total Bilirubin AST ALT Alkaline Phosphatase Total Protein Albumin POC Urine HCG, Qual Negative Syphilis Serology Non-reactive COVID-19 (LEÓN) 12/06/19 12/06/19 12/08/19 14:50 17:55 07:50 WBC 4.1 RBC 3.72 Hgb 11.4 Hct 34.8 MCV 93.5 MCH 30.5 MCHC 32.7 RDW 16.4 H Plt Count 127 L MPV 9.7 Absolute Neuts (auto) 0.7 L Neutrophils % 17.8 L Neutrophils % (Manual) 16.5 L Band Neutrophils % 0.0 Lymphocytes % 64.1 H Lymphocytes % (Manual) 59.2 H Monocytes % 13.1 H Monocytes % (Manual) 18 H Eosinophils % 3.7 Eosinophils % (Manual) 1.9 Basophils % 1.3 Basophils % (Manual) 4.9 H Myelocytes % (Man) 0 Promyelocytes % (Man) 0 Blast Cells % (Manual) 0 Nucleated RBC % 0 Metamyelocytes 0 Hypochromia 0 Platelet Estimate Decreased Polychromasia 0 Poikilocytosis 0 Anisocytosis 0 Microcytosis 0 Macrocytosis 0 Sodium 135 L Potassium 4.2 Chloride 106 Carbon Dioxide 22 Anion Gap 7 L BUN 6.3 L Creatinine 0.8 Est GFR (CKD-EPI)AfAm 96.19 Est GFR (CKD-EPI)NonAf 83.00 Random Glucose 88 Calcium 8.7 Total Bilirubin 0.6 AST 227 H ALT 91 H Alkaline Phosphatase 175 H Total Protein 9.8 H Albumin 3.1 L POC Urine HCG, Qual Syphilis Serology COVID-19 (LEÓN) Not detected 12/08/19 07:50 WBC RBC Hgb Hct MCV MCH MCHC RDW Plt Count MPV Absolute Neuts (auto) Neutrophils % Neutrophils % (Manual) Band Neutrophils % Lymphocytes % Lymphocytes % (Manual) Monocytes % Monocytes % (Manual) Eosinophils % Eosinophils % (Manual) Basophils % Basophils % (Manual) Myelocytes % (Man) Promyelocytes % (Man) Blast Cells % (Manual) Nucleated RBC % Metamyelocytes Hypochromia Platelet Estimate Polychromasia Poikilocytosis Anisocytosis Microcytosis Macrocytosis Sodium 134 L Potassium 4.5 Chloride 98 Carbon Dioxide 34 H Anion Gap 2 L BUN 15.8 Creatinine 1.0 Est GFR (CKD-EPI)AfAm 73.45 Est GFR (CKD-EPI)NonAf 63.37 Random Glucose 92 Calcium 9.1 Total Bilirubin 0.6 AST 110 H ALT 69 H Alkaline Phosphatase 143 H Total Protein 9.5 H Albumin 3.1 L POC Urine HCG, Qual Syphilis Serology COVID-19 (LEÓN) aaox3 ambulating no acute distress lungs CTA - Treatment Hospital Course: Detox Protocol Followed, Detoxed Safely, Responded well, Discharged Condition Good, Rehab Referral Accepted - Medication Discharge Medications: Ambulatory Orders Escitalopram Oxalate [Lexapro -] 20 mg PO DAILY #30 tablet 07/10/16 Bictegrav/Emtricit/Tenofov Ala [Biktarvy 50-200-25 mg Tablet] 1 tablet PO DAILY 11/17/18 Methadone [Dolophine -] 40 mg PO DAILY 03/27/19 - Diagnosis (1) Substance-induced sleep disorder Current Visit: Yes Status: Acute (2) Borderline personality disorder Current Visit: Yes Status: Chronic (3) MDD (major depressive disorder) Current Visit: Yes Status: Chronic (4) Alcohol dependence with withdrawal Current Visit: Yes Status: Acute Qualifiers: Complication of substance-induced condition: uncomplicated Qualified Code(s): F10.230 - Alcohol dependence with withdrawal, uncomplicated (5) Alcohol intoxication Current Visit: No Status: Acute Qualifiers: Complication of substance-induced condition: uncomplicated Qualified Code(s): F10.920 - Alcohol use, unspecified with intoxication, uncomplicated (6) Cocaine dependence Current Visit: Yes Status: Chronic (7) Insomnia Current Visit: No Status: Acute (8) MDD (major depressive disorder), single episode, moderate Current Visit: No Status: Acute (9) Substance induced mood disorder Current Visit: No Status: Acute (10) Cannabis dependence Current Visit: Yes Status: Chronic (11) Depression Current Visit: No Status: Chronic Qualifiers: Depression Type: major depressive disorder Major depression recurrence: recurrent Active/Remission status: in partial remission Qualified Code(s): F33.41 - Major depressive disorder, recurrent, in partial remission (12) HIV disease Current Visit: No Status: Chronic (13) Hepatitis C Current Visit: No Status: Chronic Qualifiers: Viral hepatitis chronicity: chronic Hepatic coma status: without hepatic coma Qualified Code(s): B18.2 - Chronic viral hepatitis C (14) History of HIV infection Current Visit: No Status: Chronic (15) History of depression Current Visit: No Status: Chronic (16) IV drug user Current Visit: No Status: Chronic (17) MDD (major depressive disorder) Current Visit: No Status: Chronic (18) MDD (major depressive disorder), recurrent episode, moderate Current Visit: No Status: Chronic (19) Nicotine dependence Current Visit: Yes Status: Chronic (20) Non-compliance Current Visit: No Status: Chronic (21) h/o herpes genital Current Visit: No Status: Resolved (22) Methadone maintenance therapy patient Current Visit: Yes Status: Chronic - AMA Did Patient Leave Against Medical Advice: No
== END 2019-12-11 12:17 | disposition other institution (70) | DRG 773 ==
LOC: YASAS 12:15 → Y6N 15:45
PROVIDERS: ADMIT Allergy & Immunology; ATTEND Allergy & Immunology
PROC: HZ2ZZZZ Detoxification Services for Substance Abuse Treatment (ICD-10-PCS; principal; 2019-12-06)
DX: F10.230 Alcohol dependence with withdrawal, uncomplicated (principal); F11.20 Opioid dependence, uncomplicated; F14.20 Cocaine dependence, uncomplicated; F12.20 Cannabis dependence, uncomplicated; F17.210 Nicotine dependence, cigarettes, uncomplicated; F19.282 Other psychoactive substance dependence with psychoactive substance-induced sleep disorder; F19.24 Other psychoactive substance dependence with psychoactive substance-induced mood disorder; F33.41 Major depressive disorder, recurrent, in partial remission; F60.3 Borderline personality disorder; Z21 Asymptomatic human immunodeficiency virus [HIV] infection status; B18.2 Chronic viral hepatitis C; R94.5 Abnormal results of liver function studies; Z62.810 Personal history of physical and sexual abuse in childhood; Z86.19 Personal history of other infectious and parasitic diseases; Z87.42 Personal history of other diseases of the female genital tract; Z91.19 Patient's noncompliance with other medical treatment and regimen; Z56.0 Unemployment, unspecified
CPT/HCPCS: 36415; 80053; 81025; 85025; 85027; 86780; U0003

== ENCOUNTER 2019-12-11 12:28 | Inpatient (IN) | payer OTHER ==
--- NOTE | 2019-12-11 12:06 | HP ---
[facility] Rehab Assess/Revision - Admission History Ad[facility] to [facility]hab [facility] - Findings Detox History & Physical reviewed: Yes Concur with findings: Yes Inpatient Rehab Admission - Rehab Decision to Admit Inpatient rehab admission?: Yes - Initial Determination Are CD services needed?: Yes Free of communicable disease: Yes Not in need of hospitalization: Yes - Rehab Admission Criteria Previous failed treatment: Yes Poor recovery environment: Yes Comorbidities: Yes Lacks judgement: Yes Patient is meeting Inpatient Rehab admission criteria:: Yes
[2019-12-11] MEDS ORDERED: MAGNESIUM HYDROX 2400MG/30ML ORAL SUSPENSION 30 ML CUP PO PRN (13:40)
[2019-12-11] MEDS ORDERED: MAGNESIUM CITRATE 300 ML BOTTLE PO PRN (13:40)
[2019-12-11] MEDS ORDERED: ACETAMINOPHEN 325 MG TABLET (FP) PO PRN (13:40)
[2019-12-11] MEDS ORDERED: MENTHOL/PHENOL 1 EACH UD MM PRN (13:40)
[2019-12-11] MEDS ORDERED: P-EPHED 60MG/TRIPROLIDI 2.5MG TABLET PO PRN (13:40)
[2019-12-11] MEDS ORDERED: guaiFENesin 200 MG/10 ML 10 ML UNIT-DOSE CUPS PO PRN (13:40)
[2019-12-11] MEDS ORDERED: IBUPROFEN 400 MG TABLET (FP) PO PRN (13:40)
[2019-12-11] MEDS ORDERED: MAG HYDROX/AL HYDROX/SIMETH 30 ML UNIT-DOSE CUP PO PRN (13:40)
[2019-12-11] MEDS ORDERED: NICOTINE POLACRILEX 2 MG GUM BUC PRN (13:40)
[2019-12-11] MEDS ORDERED: LOPERAMIDE HCL 2 MG CAPSULE PO PRN (13:40)
[2019-12-11] MEDS: MELATONIN 5 MG TABLETS PO SCH (21:49)
[2019-12-11] MEDS: THIAMINE HCL 100 MG TABLET (FP) PO SCH (21:49)
[2019-12-11] MEDS: hydrOXYzine PAMOATE 25 MG CAPSULE (FP) PO PRN (21:50)
[2019-12-12] MEDS: METHADONE HCL 40 MG DISPERSABLE TABLET PO SCH (06:55)
[2019-12-12] MEDS: PRENATAL VITAMINS W/ FOLIC ACID TABLET (FP) PO SCH (09:38)
[2019-12-12] MEDS: NICOTINE 7 MG/24 HOURS TOPICAL PATCH TD SCH (09:38)
[2019-12-12] MEDS: ESCITALOPRAM OXALATE 20 MG TABLET PO SCH (09:38)
--- NOTE | 2019-12-12 09:51 | EKG ---
Test Reason : Blood Pressure : / mmHG Vent. Rate : 060 BPM Atrial Rate : 060 BPM P-R Int : 144 ms QRS Dur : 086 ms QT Int : 434 ms P-R-T Axes : 058 044 049 degrees QTc Int : 434 ms NORMAL SINUS RHYTHM LEFT ATRIAL ENLARGEMENT OTHERWISE NORMAL ECG Confirmed by MD STEVENSON, DONTRELL ([id number]) on 12/12/2019 9:50:43 AM Referred By: Confirmed By:DONTRELL GAMINO MD
[2019-12-12] MEDS: MELATONIN 5 MG TABLETS PO SCH (21:47)
[2019-12-12] MEDS: THIAMINE HCL 100 MG TABLET (FP) PO SCH (21:48)
[2019-12-13] MEDS: METHADONE HCL 40 MG DISPERSABLE TABLET PO SCH (06:23)
[2019-12-13] MEDS: ESCITALOPRAM OXALATE 20 MG TABLET PO SCH (09:20)
[2019-12-13] MEDS: PRENATAL VITAMINS W/ FOLIC ACID TABLET (FP) PO SCH (09:20)
[2019-12-13] MEDS: NICOTINE 7 MG/24 HOURS TOPICAL PATCH TD SCH (09:21)
--- NOTE | 2019-12-13 14:30 | PN ---
[facility] Progress Note Note: Ms Hood is requesting to switch from Methadone to Suboxone. At the present time she is on 40 mg of Methadone. For a brief time she was on suboxone 2 mg and did well. She also understands the process she would have to go through to be induced. However, we are unable to do it at this time at [facility]. The patient was advised to finish [facility] rehab while on Methadone, then go to a clinic where she could switch from Methadone to Suboxone. Patient agreed with the suggestion. Vital Signs Period Temp Pulse Resp BP Sys/Saul Pulse Ox Last 24 Hr 98 F 66 16 90/61 95-99 General: no apparent distress Neuro: no cognitive deficits MSK: full weight bearing, full ROM Resp: unlabored.
[2019-12-13] MEDS: THIAMINE HCL 100 MG TABLET (FP) PO SCH (21:59)
[2019-12-13] MEDS: hydrOXYzine PAMOATE 25 MG CAPSULE (FP) PO PRN (22:00)
[2019-12-13] MEDS: MELATONIN 5 MG TABLETS PO SCH (22:01)
[2019-12-14] MEDS: METHADONE HCL 40 MG DISPERSABLE TABLET PO SCH (06:10)
[2019-12-14] MEDS: PRENATAL VITAMINS W/ FOLIC ACID TABLET (FP) PO SCH (10:05)
[2019-12-14] MEDS: ESCITALOPRAM OXALATE 20 MG TABLET PO SCH (10:05)
[2019-12-14] MEDS: NICOTINE 7 MG/24 HOURS TOPICAL PATCH TD SCH (10:06)
[2019-12-14] MEDS: THIAMINE HCL 100 MG TABLET (FP) PO SCH (21:54)
[2019-12-14] MEDS: MELATONIN 5 MG TABLETS PO SCH (21:54)
[2019-12-15] MEDS: METHADONE HCL 40 MG DISPERSABLE TABLET PO SCH (06:42)
[2019-12-15] MEDS: PRENATAL VITAMINS W/ FOLIC ACID TABLET (FP) PO SCH (09:55)
[2019-12-15] MEDS: ESCITALOPRAM OXALATE 20 MG TABLET PO SCH (09:55)
[2019-12-15] MEDS: NICOTINE 7 MG/24 HOURS TOPICAL PATCH TD SCH (09:55)
[2019-12-15] MEDS: THIAMINE HCL 100 MG TABLET (FP) PO SCH (21:57)
[2019-12-15] MEDS: hydrOXYzine PAMOATE 25 MG CAPSULE (FP) PO PRN (21:57)
[2019-12-15] MEDS: MELATONIN 5 MG TABLETS PO SCH (21:57)
[2019-12-16] MEDS: METHADONE HCL 40 MG DISPERSABLE TABLET PO SCH (06:51)
[2019-12-16] MEDS: PRENATAL VITAMINS W/ FOLIC ACID TABLET (FP) PO SCH (10:11)
[2019-12-16] MEDS: ESCITALOPRAM OXALATE 20 MG TABLET PO SCH (10:11)
[2019-12-16] MEDS: NICOTINE 7 MG/24 HOURS TOPICAL PATCH TD SCH (10:12)
[2019-12-16] MEDS: THIAMINE HCL 100 MG TABLET (FP) PO SCH (21:52)
[2019-12-16] MEDS: MELATONIN 5 MG TABLETS PO SCH (21:52)
[2019-12-16] MEDS: hydrOXYzine PAMOATE 25 MG CAPSULE (FP) PO PRN (21:53)
[2019-12-17] MEDS: METHADONE HCL 40 MG DISPERSABLE TABLET PO SCH (06:40)
[2019-12-17] MEDS ORDERED: ESCITALOPRAM OXALATE 10 MG TABLET ONE (08:25)
[2019-12-17] MEDS: NICOTINE 7 MG/24 HOURS TOPICAL PATCH TD SCH (09:51)
[2019-12-17] MEDS: ESCITALOPRAM OXALATE 20 MG TABLET PO SCH (09:51)
[2019-12-17] MEDS: PRENATAL VITAMINS W/ FOLIC ACID TABLET (FP) PO SCH (09:51)
[2019-12-17] MEDS: THIAMINE HCL 100 MG TABLET (FP) PO SCH (21:39)
[2019-12-17] MEDS: MELATONIN 5 MG TABLETS PO SCH (21:39)
[2019-12-17] MEDS ORDERED: PT OWN MED DRAWER 7, Y5N ONE (22:32)
[2019-12-18] MEDS: METHADONE HCL 40 MG DISPERSABLE TABLET PO SCH (06:22)
[2019-12-18] MEDS: NICOTINE 7 MG/24 HOURS TOPICAL PATCH TD SCH (09:59)
[2019-12-18] MEDS: ESCITALOPRAM OXALATE 20 MG TABLET PO SCH (09:59)
[2019-12-18] MEDS: PRENATAL VITAMINS W/ FOLIC ACID TABLET (FP) PO SCH (09:59)
[2019-12-18] MEDS: MELATONIN 5 MG TABLETS PO SCH (21:11)
[2019-12-18] MEDS: THIAMINE HCL 100 MG TABLET (FP) PO SCH (21:11)
[2019-12-19] MEDS: METHADONE HCL 40 MG DISPERSABLE TABLET PO SCH (06:38)
[2019-12-19] MEDS: PRENATAL VITAMINS W/ FOLIC ACID TABLET (FP) PO SCH (09:48)
[2019-12-19] MEDS: NICOTINE 7 MG/24 HOURS TOPICAL PATCH TD SCH (09:48)
[2019-12-19] MEDS: ESCITALOPRAM OXALATE 20 MG TABLET PO SCH (09:48)
[2019-12-19] MEDS: AMMONIUM LACTATE 12% LOTION 225 GM BOTTLE TP PRN (15:31)
--- NOTE | 2019-12-19 15:36 | PN ---
[facility] Progress Note Note: patient c/o itching on her buttocks. states she has had it for greater than a week. P/E General: no apparent distress SKIN: several small scabs above buttocks fold raised, red, with scaling. No drainage, non-tender MSK: full weight bearing Vital Signs Period Temp Pulse Resp BP Sys/Saul Pulse Ox Last 24 Hr 98.7 F 63 20 99/59 96-99 Possible insect bites; benadryl cream given, lac-hydrin given. will continue to monitor.
[2019-12-19] MEDS ORDERED: PT OWN MED DRAWER 7, Y5N ONE (15:42)
[2019-12-19] MEDS: MELATONIN 5 MG TABLETS PO SCH (21:11)
[2019-12-19] MEDS: THIAMINE HCL 100 MG TABLET (FP) PO SCH (21:11)
[2019-12-20] MEDS: METHADONE HCL 40 MG DISPERSABLE TABLET PO SCH (06:32)
[2019-12-20] MEDS: PRENATAL VITAMINS W/ FOLIC ACID TABLET (FP) PO SCH (10:16)
[2019-12-20] MEDS: ESCITALOPRAM OXALATE 20 MG TABLET PO SCH (10:16)
[2019-12-20] MEDS: NICOTINE 7 MG/24 HOURS TOPICAL PATCH TD SCH (10:17)
[2019-12-20] MEDS ORDERED: PT OWN MED DRAWER 7, Y5N ONE (16:17)
[2019-12-20] MEDS: THIAMINE HCL 100 MG TABLET (FP) PO SCH (21:47)
[2019-12-20] MEDS: MELATONIN 5 MG TABLETS PO SCH (21:47)
[2019-12-21] MEDS: METHADONE HCL 40 MG DISPERSABLE TABLET PO SCH (06:36)
[2019-12-21] MEDS ORDERED: PT OWN MED DRAWER 7, Y5N ONE ×2 (08:49→19:24)
[2019-12-21] MEDS: ESCITALOPRAM OXALATE 20 MG TABLET PO SCH (09:51)
[2019-12-21] MEDS: NICOTINE 7 MG/24 HOURS TOPICAL PATCH TD SCH (09:51)
[2019-12-21] MEDS: PRENATAL VITAMINS W/ FOLIC ACID TABLET (FP) PO SCH (09:51)
[2019-12-21] MEDS: THIAMINE HCL 100 MG TABLET (FP) PO SCH (22:24)
[2019-12-21] MEDS: MELATONIN 5 MG TABLETS PO SCH (22:24)
[2019-12-22] MEDS: METHADONE HCL 40 MG DISPERSABLE TABLET PO SCH (06:43)
[2019-12-22] MEDS: PRENATAL VITAMINS W/ FOLIC ACID TABLET (FP) PO SCH (10:02)
[2019-12-22] MEDS: ESCITALOPRAM OXALATE 20 MG TABLET PO SCH (10:02)
[2019-12-22] MEDS: NICOTINE 7 MG/24 HOURS TOPICAL PATCH TD SCH (10:02)
[2019-12-22] MEDS: THIAMINE HCL 100 MG TABLET (FP) PO SCH (21:48)
[2019-12-22] MEDS: MELATONIN 5 MG TABLETS PO SCH (21:48)
[2019-12-23] MEDS: METHADONE HCL 40 MG DISPERSABLE TABLET PO SCH (06:32)
[2019-12-23] MEDS: ESCITALOPRAM OXALATE 20 MG TABLET PO SCH (09:55)
[2019-12-23] MEDS: PRENATAL VITAMINS W/ FOLIC ACID TABLET (FP) PO SCH (09:55)
[2019-12-23] MEDS: NICOTINE 7 MG/24 HOURS TOPICAL PATCH TD SCH (09:55)
[2019-12-23] MEDS: MELATONIN 5 MG TABLETS PO SCH (21:55)
[2019-12-23] MEDS: THIAMINE HCL 100 MG TABLET (FP) PO SCH (21:55)
[2019-12-24] MEDS: METHADONE HCL 40 MG DISPERSABLE TABLET PO SCH (06:22)
[2019-12-24] MEDS ORDERED: PT OWN MED DRAWER 7, Y5N ONE ×2 (09:05→10:00)
[2019-12-24] MEDS: ESCITALOPRAM OXALATE 20 MG TABLET PO SCH (09:59)
[2019-12-24] MEDS: PRENATAL VITAMINS W/ FOLIC ACID TABLET (FP) PO SCH (09:59)
[2019-12-24] MEDS: NICOTINE 7 MG/24 HOURS TOPICAL PATCH TD SCH (09:59)
[2019-12-24] MEDS: AMMONIUM LACTATE 12% LOTION 225 GM BOTTLE TP PRN (10:00)
--- NOTE | 2019-12-24 11:58 | PN ---
[facility] Progress Note Note: Patient evaluated for c/o right groin swelling. Patient states symptoms present x 24 hours. Complains of tenderness and warmth to area. Reports having symptoms in past which resolved after she restarted HIV medication. Patient reports taking Biktarvy but has not taken medication x 6 months. She denies chills, fever and dysuria. Vital Signs Temperature 97.1 F L 12/24/19 06:30 Pulse Rate 63 12/24/19 06:30 Respiratory Rate 16 12/24/19 06:30 Blood Pressure 100/65 12/24/19 06:30 O2 Sat by Pulse Oximetry (%) 97 12/24/19 06:30 PE alert and oriented x 3 skin warm and dry +perrla, eoms intact bl right groin with reddened, swollen and tender area ( oval in shape, appr oximately 2.5cmx1.5cm in size) ext full rom, amb ad quyen no visible edema A/P: HIV + (noncompliance with treatment) +right groin abscess vs lymphadenitis Case and findings discussed with Dr. Ralph ROBISON agreed to start antibiotic treatment with Keflex 500mg po q6h x 7 days will also check UA and CS monitor clinically
[2019-12-24] MEDS: CEPHALEXIN MONOHYDRATE 500 MG CAPSULE (UD) PO SCH ×3 (13:11→23:05)
[2019-12-24] MEDS: MELATONIN 5 MG TABLETS PO SCH (22:05)
[2019-12-24] MEDS: THIAMINE HCL 100 MG TABLET (FP) PO SCH (22:05)
[2019-12-25] MEDS: CEPHALEXIN MONOHYDRATE 500 MG CAPSULE (UD) PO SCH ×4 (06:40→23:25)
[2019-12-25] MEDS: METHADONE HCL 40 MG DISPERSABLE TABLET PO SCH (06:40)
[2019-12-25] MEDS: ESCITALOPRAM OXALATE 20 MG TABLET PO SCH (10:25)
[2019-12-25] MEDS: PRENATAL VITAMINS W/ FOLIC ACID TABLET (FP) PO SCH (10:25)
[2019-12-25] MEDS: NICOTINE 7 MG/24 HOURS TOPICAL PATCH TD SCH (10:26)
[2019-12-25 15:00] LABS: PH,URINE 6.5 (5.0-8.0); URINE APPEARANCE CLEAR; URINE BILIRUBIN NEGATIVE (NEGATIVE); URINE COLOR YELLOW; URINE GLUCOSE (UA) NEGATIVE (NEGATIVE); URINE KETONE NEGATIVE (NEGATIVE); URINE LEUK ESTERASE NEGATIVE (NEGATIVE); URINE NITRITE NEGATIVE (NEGATIVE); URINE PROTEIN NEGATIVE (NEGATIVE); URINE UROBILINOGEN 0.2 mg/dL (0.2-1.0)
[2019-12-25] MEDS: MELATONIN 5 MG TABLETS PO SCH (21:39)
[2019-12-25] MEDS: THIAMINE HCL 100 MG TABLET (FP) PO SCH (21:39)
[2019-12-26] MEDS: CEPHALEXIN MONOHYDRATE 500 MG CAPSULE (UD) PO SCH ×3 (06:15→18:55)
[2019-12-26] MEDS: METHADONE HCL 40 MG DISPERSABLE TABLET PO SCH (06:15)
[2019-12-26] MEDS ORDERED: PT OWN MED DRAWER 7, Y5N ONE ×2 (08:43→11:08)
[2019-12-26] MEDS: PRENATAL VITAMINS W/ FOLIC ACID TABLET (FP) PO SCH (09:55)
[2019-12-26] MEDS: ESCITALOPRAM OXALATE 20 MG TABLET PO SCH (09:55)
[2019-12-26] MEDS: NICOTINE 7 MG/24 HOURS TOPICAL PATCH TD SCH (09:55)
[2019-12-26] MEDS: MELATONIN 5 MG TABLETS PO SCH (21:28)
[2019-12-26] MEDS: THIAMINE HCL 100 MG TABLET (FP) PO SCH (21:28)
[2019-12-27] MEDS: CEPHALEXIN MONOHYDRATE 500 MG CAPSULE (UD) PO SCH ×4 (00:17→18:04)
[2019-12-27] MEDS: METHADONE HCL 40 MG DISPERSABLE TABLET PO SCH (06:14)
[2019-12-27] MEDS: ESCITALOPRAM OXALATE 20 MG TABLET PO SCH (10:02)
[2019-12-27] MEDS: NICOTINE 7 MG/24 HOURS TOPICAL PATCH TD SCH (10:02)
[2019-12-27] MEDS: PRENATAL VITAMINS W/ FOLIC ACID TABLET (FP) PO SCH (10:02)
[2019-12-27] MEDS: AMMONIUM LACTATE 12% LOTION 225 GM BOTTLE TP PRN (10:02)
[2019-12-27] MEDS: MELATONIN 5 MG TABLETS PO SCH (21:29)
[2019-12-27] MEDS: THIAMINE HCL 100 MG TABLET (FP) PO SCH (21:30)
[2019-12-28] MEDS: CEPHALEXIN MONOHYDRATE 500 MG CAPSULE (UD) PO SCH ×4 (00:12→18:21)
[2019-12-28] MEDS: METHADONE HCL 40 MG DISPERSABLE TABLET PO SCH (06:21)
[2019-12-28] MEDS: ESCITALOPRAM OXALATE 20 MG TABLET PO SCH (09:42)
[2019-12-28] MEDS: PRENATAL VITAMINS W/ FOLIC ACID TABLET (FP) PO SCH (09:42)
[2019-12-28] MEDS: NICOTINE 7 MG/24 HOURS TOPICAL PATCH TD SCH (09:43)
[2019-12-28] MEDS: THIAMINE HCL 100 MG TABLET (FP) PO SCH (21:41)
[2019-12-28] MEDS: MELATONIN 5 MG TABLETS PO SCH (21:41)
[2019-12-29] MEDS: CEPHALEXIN MONOHYDRATE 500 MG CAPSULE (UD) PO SCH ×5 (00:18→23:50)
[2019-12-29] MEDS: METHADONE HCL 40 MG DISPERSABLE TABLET PO SCH (06:51)
[2019-12-29] MEDS: PRENATAL VITAMINS W/ FOLIC ACID TABLET (FP) PO SCH (10:20)
[2019-12-29] MEDS: NICOTINE 7 MG/24 HOURS TOPICAL PATCH TD SCH (10:20)
[2019-12-29] MEDS: ESCITALOPRAM OXALATE 20 MG TABLET PO SCH (10:20)
[2019-12-29] MEDS: THIAMINE HCL 100 MG TABLET (FP) PO SCH (21:26)
[2019-12-29] MEDS: MELATONIN 5 MG TABLETS PO SCH (21:27)
[2019-12-30] MEDS: CEPHALEXIN MONOHYDRATE 500 MG CAPSULE (UD) PO SCH ×4 (06:17→23:34)
[2019-12-30] MEDS: METHADONE HCL 40 MG DISPERSABLE TABLET PO SCH (06:17)
[2019-12-30] MEDS: ESCITALOPRAM OXALATE 20 MG TABLET PO SCH (10:02)
[2019-12-30] MEDS: PRENATAL VITAMINS W/ FOLIC ACID TABLET (FP) PO SCH (10:02)
[2019-12-30] MEDS: NICOTINE 7 MG/24 HOURS TOPICAL PATCH TD SCH (10:02)
[2019-12-30] MEDS: THIAMINE HCL 100 MG TABLET (FP) PO SCH (21:34)
[2019-12-30] MEDS: MELATONIN 5 MG TABLETS PO SCH (21:34)
[2019-12-31] MEDS: CEPHALEXIN MONOHYDRATE 500 MG CAPSULE (UD) PO SCH (06:23)
[2019-12-31] MEDS: METHADONE HCL 40 MG DISPERSABLE TABLET PO SCH (06:24)
[2019-12-31] MEDS: PRENATAL VITAMINS W/ FOLIC ACID TABLET (FP) PO SCH (10:04)
[2019-12-31] MEDS: NICOTINE 7 MG/24 HOURS TOPICAL PATCH TD SCH (10:04)
[2019-12-31] MEDS: ESCITALOPRAM OXALATE 20 MG TABLET PO SCH (10:04)
[2019-12-31] MEDS: AMMONIUM LACTATE 12% LOTION 225 GM BOTTLE TP PRN (10:05)
[2019-12-31] MEDS: MELATONIN 5 MG TABLETS PO SCH (21:51)
[2019-12-31] MEDS: THIAMINE HCL 100 MG TABLET (FP) PO SCH (21:51)
[2020-01-01] MEDS: METHADONE HCL 40 MG DISPERSABLE TABLET PO SCH (06:10)
[2020-01-01] MEDS: PRENATAL VITAMINS W/ FOLIC ACID TABLET (FP) PO SCH (09:55)
[2020-01-01] MEDS: ESCITALOPRAM OXALATE 20 MG TABLET PO SCH (09:55)
[2020-01-01] MEDS: NICOTINE 7 MG/24 HOURS TOPICAL PATCH TD SCH (09:55)
[2020-01-01] MEDS: THIAMINE HCL 100 MG TABLET (FP) PO SCH (21:42)
[2020-01-01] MEDS: MELATONIN 5 MG TABLETS PO SCH (21:42)
[2020-01-02] MEDS: METHADONE HCL 40 MG DISPERSABLE TABLET PO SCH (06:39)
[2020-01-02] MEDS: ESCITALOPRAM OXALATE 20 MG TABLET PO SCH (09:55)
[2020-01-02] MEDS: PRENATAL VITAMINS W/ FOLIC ACID TABLET (FP) PO SCH (09:55)
[2020-01-02] MEDS: NICOTINE 7 MG/24 HOURS TOPICAL PATCH TD SCH (09:55)
[2020-01-02] MEDS: MELATONIN 5 MG TABLETS PO SCH (21:46)
[2020-01-02] MEDS: THIAMINE HCL 100 MG TABLET (FP) PO SCH (21:46)
[2020-01-03] MEDS: METHADONE HCL 40 MG DISPERSABLE TABLET PO SCH (06:48)
[2020-01-03] MEDS ORDERED: PT OWN MED DRAWER 7, Y5N ONE (08:53)
[2020-01-03] MEDS: PRENATAL VITAMINS W/ FOLIC ACID TABLET (FP) PO SCH (09:47)
[2020-01-03] MEDS: ESCITALOPRAM OXALATE 20 MG TABLET PO SCH (09:47)
[2020-01-03] MEDS: AMMONIUM LACTATE 12% LOTION 225 GM BOTTLE TP PRN (09:47)
[2020-01-03] MEDS: NICOTINE 7 MG/24 HOURS TOPICAL PATCH TD SCH (09:48)
[2020-01-03] MEDS: THIAMINE HCL 100 MG TABLET (FP) PO SCH (21:34)
[2020-01-03] MEDS: MELATONIN 5 MG TABLETS PO SCH (21:34)
[2020-01-04] MEDS: METHADONE HCL 40 MG DISPERSABLE TABLET PO SCH (06:35)
[2020-01-04] MEDS: NICOTINE 7 MG/24 HOURS TOPICAL PATCH TD SCH (09:43)
[2020-01-04] MEDS: PRENATAL VITAMINS W/ FOLIC ACID TABLET (FP) PO SCH (09:43)
[2020-01-04] MEDS: ESCITALOPRAM OXALATE 20 MG TABLET PO SCH (09:43)
[2020-01-04] MEDS ORDERED: PT OWN MED DRAWER 7, Y5N ONE (19:30)
[2020-01-04] MEDS: THIAMINE HCL 100 MG TABLET (FP) PO SCH (21:54)
[2020-01-04] MEDS: MELATONIN 5 MG TABLETS PO SCH (21:54)
[2020-01-05] MEDS: METHADONE HCL 40 MG DISPERSABLE TABLET PO SCH (06:12)
[2020-01-05] MEDS: ESCITALOPRAM OXALATE 20 MG TABLET PO SCH (10:03)
[2020-01-05] MEDS: PRENATAL VITAMINS W/ FOLIC ACID TABLET (FP) PO SCH (10:03)
[2020-01-05] MEDS: NICOTINE 7 MG/24 HOURS TOPICAL PATCH TD SCH (10:03)
[2020-01-05] MEDS: THIAMINE HCL 100 MG TABLET (FP) PO SCH (21:30)
[2020-01-05] MEDS: MELATONIN 5 MG TABLETS PO SCH (21:30)
[2020-01-06] MEDS: METHADONE HCL 40 MG DISPERSABLE TABLET PO SCH (06:39)
[2020-01-06] MEDS: ESCITALOPRAM OXALATE 20 MG TABLET PO SCH (09:47)
[2020-01-06] MEDS: NICOTINE 7 MG/24 HOURS TOPICAL PATCH TD SCH (09:47)
[2020-01-06] MEDS: PRENATAL VITAMINS W/ FOLIC ACID TABLET (FP) PO SCH (09:47)
[2020-01-06] MEDS: THIAMINE HCL 100 MG TABLET (FP) PO SCH (21:24)
[2020-01-06] MEDS: MELATONIN 5 MG TABLETS PO SCH (21:24)
[2020-01-07] MEDS: METHADONE HCL 40 MG DISPERSABLE TABLET PO SCH (06:10)
[2020-01-07] MEDS: NICOTINE 7 MG/24 HOURS TOPICAL PATCH TD SCH (10:08)
[2020-01-07] MEDS: PRENATAL VITAMINS W/ FOLIC ACID TABLET (FP) PO SCH (10:08)
[2020-01-07] MEDS: ESCITALOPRAM OXALATE 20 MG TABLET PO SCH (10:08)
--- NOTE | 2020-01-07 11:05 | PN ---
[facility] Progress Note Note: Patient is scheduled for discharge tomorrow. Script for 30 days supply of Lexapro 20 mg/day will be electronically transmitted to [facility], [address] [place] [id number]
[2020-01-07] MEDS: MELATONIN 5 MG TABLETS PO SCH (21:30)
[2020-01-07] MEDS: THIAMINE HCL 100 MG TABLET (FP) PO SCH (21:30)
[2020-01-08] MEDS: METHADONE HCL 40 MG DISPERSABLE TABLET PO SCH (06:32)
[2020-01-08 07:13] VITALS: BP 94/60; PULSE 63; TEMP 97.1
[2020-01-08] MEDS ORDERED: PT OWN MED DRAWER 7, Y5N ONE (08:52)
[2020-01-08] MEDS ORDERED: MASKS NR ONE (09:10)
[2020-01-08] MEDS: ESCITALOPRAM OXALATE 20 MG TABLET PO SCH (09:11)
[2020-01-08] MEDS: PRENATAL VITAMINS W/ FOLIC ACID TABLET (FP) PO SCH (09:11)
[2020-01-08] MEDS: NICOTINE 7 MG/24 HOURS TOPICAL PATCH TD SCH (09:12)
== END 2020-01-08 09:15 | disposition home or self-care (01) | DRG 772 ==
LOC: YASAS 12:28 → Y3E 12:34
PROVIDERS: ADMIT Allergy & Immunology; ATTEND Allergy & Immunology
PROC: HZ42ZZZ Group Counseling for Substance Abuse Treatment, Cognitive-Behavioral (ICD-10-PCS; principal; 2019-12-11)
DX: F10.20 Alcohol dependence, uncomplicated (principal); F11.20 Opioid dependence, uncomplicated; F14.20 Cocaine dependence, uncomplicated; F12.20 Cannabis dependence, uncomplicated; F17.210 Nicotine dependence, cigarettes, uncomplicated; F19.24 Other psychoactive substance dependence with psychoactive substance-induced mood disorder; F33.41 Major depressive disorder, recurrent, in partial remission; Z21 Asymptomatic human immunodeficiency virus [HIV] infection status; B18.2 Chronic viral hepatitis C; L02.214 Cutaneous abscess of groin; I88.8 Other nonspecific lymphadenitis; L29.8 Other pruritus; S30.860A Insect bite (nonvenomous) of lower back and pelvis, initial encounter; W57.XXXA Bitten or stung by nonvenomous insect and other nonvenomous arthropods, initial encounter; Y93.89 Activity, other specified; Y92.230 Patient room in hospital as the place of occurrence of the external cause; Y99.8 Other external cause status
CPT/HCPCS: 81003; 87086; 93005; 93010

== ENCOUNTER 2020-03-10 15:14 | Inpatient (IN) | payer OTHER ==
[2020-03-10 16:46] VITALS: BMI 22.8
[2020-03-10] MEDS ORDERED: METHOCARBAMOL 500 MG TABLET PO PRN (16:54)
[2020-03-10] MEDS ORDERED: MAGNESIUM HYDROX 2400MG/30ML ORAL SUSPENSION 30 ML CUP PO PRN (16:54)
[2020-03-10] MEDS ORDERED: BISMUTH SUBSALICYLATE 524 MG/30 ML UD PO PRN (16:54)
[2020-03-10] MEDS ORDERED: MAG HYDROX/AL HYDROX/SIMETH 30 ML UNIT-DOSE CUP PO PRN (16:54)
[2020-03-10] MEDS ORDERED: chlordiazePOXIDE HCL 25 MG CAPSULE PO PRN (16:54)
[2020-03-10] MEDS ORDERED: IBUPROFEN 400 MG TABLET (FP) PO PRN (16:54)
[2020-03-10] MEDS ORDERED: MAGNESIUM CITRATE 300 ML BOTTLE PO PRN (16:54)
[2020-03-10] MEDS ORDERED: NICOTINE POLACRILEX 2 MG GUM BUC PRN (16:54)
[2020-03-10] MEDS ORDERED: ACETAMINOPHEN 325 MG TABLET (FP) PO PRN ×2 (16:54)
[2020-03-10] MEDS ORDERED: ONDANSETRON *ODT* 4 MG TABLET SL PRN (16:54)
[2020-03-10] MEDS ORDERED: MENTHOL/PHENOL 1 EACH UD MM PRN (16:54)
[2020-03-10] MEDS: chlordiazePOXIDE HCL 25 MG CAPSULE PO SCH ×2 (17:53→22:08)
[2020-03-10] MEDS: PRENATAL VITAMINS W/ FOLIC ACID TABLET (FP) PO SCH (17:54)
[2020-03-10] MEDS: NICOTINE 7 MG/24 HOURS TOPICAL PATCH TD SCH (17:56)
[2020-03-10] MEDS: hydrOXYzine PAMOATE 25 MG CAPSULE (FP) PO SCH ×2 (17:58→22:08)
[2020-03-10] MEDS: HYDROCORTISONE 0.5% TOPICAL CREAM 30 GM TUBE TP PRN (22:07)
[2020-03-10] MEDS: THIAMINE HCL 100 MG TABLET (FP) PO SCH (22:08)
[2020-03-10] MEDS: MELATONIN 5 MG TABLETS PO SCH (22:08)
[2020-03-11] MEDS: hydrOXYzine PAMOATE 25 MG CAPSULE (FP) PO SCH ×2 (05:28→10:18)
[2020-03-11] MEDS: chlordiazePOXIDE HCL 25 MG CAPSULE PO SCH ×4 (05:28→22:19)
[2020-03-11] MEDS ORDERED: METHADONE 40 MG, METHADONE 5 MG PO ONE (10:00)
[2020-03-11] MEDS ORDERED: METHADONE HCL 10 MG TABLET PO ONE (10:00)
[2020-03-11] MEDS ORDERED: METHADONE HCL 40 MG DISPERSABLE TABLET ONE (10:14)
[2020-03-11] MEDS ORDERED: METHADONE HCL 5 MG TABLET ONE (10:15)
[2020-03-11] MEDS: PRENATAL VITAMINS W/ FOLIC ACID TABLET (FP) PO SCH (10:17)
[2020-03-11] MEDS: NICOTINE 7 MG/24 HOURS TOPICAL PATCH TD SCH (10:18)
[2020-03-11 11:10] LABS: POTASSIUM 4.6 mmol/L (3.5-5.1)
[2020-03-11 11:11] LABS: HEMATOCRIT 34.4 % (32.4-45.2); HEMOGLOBIN 11.1 GM/dL (10.7-15.3); MCH 29.5 pg (25.7-33.7); MCHC 32.3 g/dl (32.0-36.0); MEAN CELL VOLUME 91.4 fl (80-96); MEAN PLT VOLUME 10.1 fl (7.5-11.1); PLATELET COUNT 177 K/MM3 (134-434); RBC 3.76 M/mm3 (3.60-5.2); WHITE BLOOD COUNT 4.1 K/mm3 (4.0-10.0)
[2020-03-11 11:12] LABS: BLOOD UREA NITROGEN 16.5 mg/dL (7-18); CALCIUM 8.6 mg/dL (8.5-10.1)
[2020-03-11 11:13] LABS: ALBUMIN 2.8 g/dl (3.4-5.0)
[2020-03-11 11:18] LABS: BILIRUBIN,TOTAL 0.4 mg/dL (0.2-1); TOT PROT 9.1 g/dl (6.4-8.2)
[2020-03-11] MEDS: HYDROCORTISONE 0.5% TOPICAL CREAM 30 GM TUBE TP PRN (17:29)
[2020-03-11] MEDS: MELATONIN 5 MG TABLETS PO SCH (22:19)
[2020-03-11] MEDS: THIAMINE HCL 100 MG TABLET (FP) PO SCH (22:19)
[2020-03-12] MEDS ORDERED: METHADONE HCL 40 MG DISPERSABLE TABLET ONE (04:35)
[2020-03-12] MEDS ORDERED: METHADONE HCL 5 MG TABLET ONE (04:36)
[2020-03-12] MEDS: chlordiazePOXIDE HCL 25 MG CAPSULE PO SCH ×4 (05:43→22:31)
[2020-03-12] MEDS: METHADONE 40 MG, METHADONE 5 MG PO SCH (05:44)
[2020-03-12] MEDS ORDERED: METHADONE HCL 10 MG TABLET PO SCH (06:00)
[2020-03-12] MEDS: NICOTINE 7 MG/24 HOURS TOPICAL PATCH TD SCH (10:16)
[2020-03-12] MEDS: PRENATAL VITAMINS W/ FOLIC ACID TABLET (FP) PO SCH (10:16)
[2020-03-12] MEDS: MELATONIN 5 MG TABLETS PO SCH (22:31)
[2020-03-12] MEDS: THIAMINE HCL 100 MG TABLET (FP) PO SCH (22:31)
[2020-03-13] MEDS ORDERED: chlordiazePOXIDE HCL 10 MG CAPSULE PO PRN
[2020-03-13] MEDS ORDERED: METHADONE HCL 5 MG TABLET ONE (04:31)
[2020-03-13] MEDS ORDERED: METHADONE HCL 40 MG DISPERSABLE TABLET ONE (04:31)
[2020-03-13] MEDS: chlordiazePOXIDE HCL 10 MG CAPSULE PO SCH ×4 (05:50→22:10)
[2020-03-13] MEDS: hydrOXYzine PAMOATE 25 MG CAPSULE (FP) PO PRN (05:50)
[2020-03-13] MEDS: METHADONE 40 MG, METHADONE 5 MG PO SCH (05:50)
[2020-03-13] MEDS: PRENATAL VITAMINS W/ FOLIC ACID TABLET (FP) PO SCH (10:17)
[2020-03-13] MEDS: NICOTINE 7 MG/24 HOURS TOPICAL PATCH TD SCH (10:17)
[2020-03-13] MEDS: ESCITALOPRAM OXALATE 10 MG TABLET PO SCH (10:18)
[2020-03-13] MEDS: THIAMINE HCL 100 MG TABLET (FP) PO SCH (22:10)
[2020-03-13] MEDS: MELATONIN 5 MG TABLETS PO SCH (22:10)
[2020-03-14] MEDS ORDERED: METHADONE HCL 40 MG DISPERSABLE TABLET ONE (04:52)
[2020-03-14] MEDS ORDERED: METHADONE HCL 5 MG TABLET ONE (04:53)
[2020-03-14] MEDS: METHADONE 40 MG, METHADONE 5 MG PO SCH (06:38)
[2020-03-14] MEDS: chlordiazePOXIDE HCL 10 MG CAPSULE PO SCH ×2 (06:38→17:27)
[2020-03-14] MEDS: NICOTINE 7 MG/24 HOURS TOPICAL PATCH TD SCH (10:45)
[2020-03-14] MEDS: ESCITALOPRAM OXALATE 10 MG TABLET PO SCH (10:45)
[2020-03-14] MEDS: PRENATAL VITAMINS W/ FOLIC ACID TABLET (FP) PO SCH (10:45)
[2020-03-14] MEDS: hydrOXYzine PAMOATE 25 MG CAPSULE (FP) PO PRN (22:08)
[2020-03-14] MEDS: MELATONIN 5 MG TABLETS PO SCH (22:09)
[2020-03-14] MEDS: THIAMINE HCL 100 MG TABLET (FP) PO SCH (22:09)
[2020-03-15] MEDS ORDERED: chlordiazePOXIDE HCL 10 MG CAPSULE PO ONE (05:00)
[2020-03-15] MEDS ORDERED: METHADONE HCL 5 MG TABLET ONE (05:07)
[2020-03-15] MEDS ORDERED: METHADONE HCL 40 MG DISPERSABLE TABLET ONE (05:07)
[2020-03-15] MEDS: METHADONE 40 MG, METHADONE 5 MG PO SCH (06:36)
[2020-03-15 09:05] VITALS: BP 85/60; PULSE 66; TEMP 98
[2020-03-15] MEDS: ESCITALOPRAM OXALATE 10 MG TABLET PO SCH (09:06)
[2020-03-15] MEDS: PRENATAL VITAMINS W/ FOLIC ACID TABLET (FP) PO SCH (09:06)
[2020-03-15] MEDS: NICOTINE 7 MG/24 HOURS TOPICAL PATCH TD SCH (09:06)
== END 2020-03-15 11:34 | disposition other institution (70) | DRG 773 ==
LOC: YASAS 15:14 → Y3N 17:14
PROVIDERS: ADMIT Allergy & Immunology; ATTEND Allergy & Immunology
PROC: HZ2ZZZZ Detoxification Services for Substance Abuse Treatment (ICD-10-PCS; principal; 2020-03-10)
DX: F10.230 Alcohol dependence with withdrawal, uncomplicated (principal); F10.220 Alcohol dependence with intoxication, uncomplicated; F11.20 Opioid dependence, uncomplicated; F14.20 Cocaine dependence, uncomplicated; F12.20 Cannabis dependence, uncomplicated; F17.210 Nicotine dependence, cigarettes, uncomplicated; F19.24 Other psychoactive substance dependence with psychoactive substance-induced mood disorder; F32.1 Major depressive disorder, single episode, moderate; F60.3 Borderline personality disorder; Z21 Asymptomatic human immunodeficiency virus [HIV] infection status; B18.2 Chronic viral hepatitis C; R63.6 Underweight; Z68.22 Body mass index [BMI] 22.0-22.9, adult; Z87.42 Personal history of other diseases of the female genital tract; Z91.14 Patient's other noncompliance with medication regimen
CPT/HCPCS: 36415; 80053; 85027; 86780; C9803; U0003

== ENCOUNTER 2020-03-15 11:41 | Inpatient (IN) | payer OTHER ==
[2020-03-15] MEDS ORDERED: NICOTINE POLACRILEX 2 MG GUM BUC PRN (14:18)
[2020-03-15] MEDS ORDERED: IBUPROFEN 400 MG TABLET (FP) PO PRN (14:18)
[2020-03-15] MEDS ORDERED: P-EPHED 60MG/TRIPROLIDI 2.5MG TABLET PO PRN (14:18)
[2020-03-15] MEDS ORDERED: guaiFENesin 200 MG/10 ML 10 ML UNIT-DOSE CUPS PO PRN (14:18)
[2020-03-15] MEDS ORDERED: MAG HYDROX/AL HYDROX/SIMETH 30 ML UNIT-DOSE CUP PO PRN (14:18)
[2020-03-15] MEDS ORDERED: LOPERAMIDE HCL 2 MG CAPSULE PO PRN (14:18)
[2020-03-15] MEDS ORDERED: ACETAMINOPHEN 325 MG TABLET (FP) PO PRN (14:18)
[2020-03-15] MEDS ORDERED: MENTHOL/PHENOL 1 EACH UD MM PRN (14:18)
[2020-03-15] MEDS ORDERED: MAGNESIUM CITRATE 300 ML BOTTLE PO PRN (14:18)
[2020-03-15] MEDS: THIAMINE HCL 100 MG TABLET (FP) PO SCH (21:56)
[2020-03-15] MEDS: MELATONIN 5 MG TABLETS PO SCH (21:56)
[2020-03-15] MEDS: MAGNESIUM HYDROX 2400MG/30ML ORAL SUSPENSION 30 ML CUP PO PRN (21:58)
[2020-03-16] MEDS ORDERED: METHADONE HCL 5 MG TABLET ONE (05:41)
[2020-03-16] MEDS ORDERED: METHADONE HCL 40 MG DISPERSABLE TABLET ONE (05:41)
[2020-03-16] MEDS ORDERED: METHADONE HCL 40 MG DISPERSABLE TABLET PO SCH ×2 (06:00→10:00)
[2020-03-16] MEDS: METHADONE 40 MG, METHADONE 5 MG PO SCH (07:04)
[2020-03-16] MEDS: ESCITALOPRAM OXALATE 20 MG TABLET PO SCH (10:11)
[2020-03-16] MEDS: PRENATAL VITAMINS W/ FOLIC ACID TABLET (FP) PO SCH (10:11)
[2020-03-16] MEDS: hydrOXYzine PAMOATE 25 MG CAPSULE (FP) PO PRN ×2 (10:11→21:38)
[2020-03-16] MEDS: NICOTINE 7 MG/24 HOURS TOPICAL PATCH TD SCH (10:12)
[2020-03-16] MEDS: THIAMINE HCL 100 MG TABLET (FP) PO SCH (21:37)
[2020-03-16] MEDS: MELATONIN 5 MG TABLETS PO SCH (21:39)
[2020-03-17] MEDS ORDERED: METHADONE HCL 40 MG DISPERSABLE TABLET ONE (05:16)
[2020-03-17] MEDS ORDERED: METHADONE HCL 5 MG TABLET ONE (05:17)
[2020-03-17] MEDS: METHADONE 40 MG, METHADONE 5 MG PO SCH (06:51)
[2020-03-17] MEDS: PRENATAL VITAMINS W/ FOLIC ACID TABLET (FP) PO SCH (10:32)
[2020-03-17] MEDS: hydrOXYzine PAMOATE 25 MG CAPSULE (FP) PO PRN (10:32)
[2020-03-17] MEDS: ESCITALOPRAM OXALATE 20 MG TABLET PO SCH (10:43)
[2020-03-17] MEDS: NICOTINE 7 MG/24 HOURS TOPICAL PATCH TD SCH (10:43)
[2020-03-17] MEDS: THIAMINE HCL 100 MG TABLET (FP) PO SCH (21:30)
[2020-03-17] MEDS: MELATONIN 5 MG TABLETS PO SCH (21:30)
[2020-03-18] MEDS ORDERED: METHADONE HCL 40 MG DISPERSABLE TABLET ONE (04:23)
[2020-03-18] MEDS ORDERED: METHADONE HCL 5 MG TABLET ONE (04:24)
[2020-03-18] MEDS: METHADONE 40 MG, METHADONE 5 MG PO SCH (06:41)
[2020-03-18] MEDS: PRENATAL VITAMINS W/ FOLIC ACID TABLET (FP) PO SCH (10:10)
[2020-03-18] MEDS: NICOTINE 7 MG/24 HOURS TOPICAL PATCH TD SCH (10:10)
[2020-03-18] MEDS: ESCITALOPRAM OXALATE 20 MG TABLET PO SCH (10:10)
[2020-03-18] MEDS: hydrOXYzine PAMOATE 25 MG CAPSULE (FP) PO PRN (10:10)
[2020-03-18] MEDS: MAGNESIUM HYDROX 2400MG/30ML ORAL SUSPENSION 30 ML CUP PO PRN (10:12)
[2020-03-18] MEDS: THIAMINE HCL 100 MG TABLET (FP) PO SCH (21:11)
[2020-03-18] MEDS: MELATONIN 5 MG TABLETS PO SCH (21:11)
[2020-03-19] MEDS ORDERED: METHADONE HCL 5 MG TABLET ONE (05:15)
[2020-03-19] MEDS ORDERED: METHADONE HCL 40 MG DISPERSABLE TABLET ONE (05:15)
[2020-03-19] MEDS: METHADONE 40 MG, METHADONE 5 MG PO SCH (06:07)
[2020-03-19] MEDS: PRENATAL VITAMINS W/ FOLIC ACID TABLET (FP) PO SCH (10:23)
[2020-03-19] MEDS: NICOTINE 7 MG/24 HOURS TOPICAL PATCH TD SCH (10:23)
[2020-03-19] MEDS: ESCITALOPRAM OXALATE 20 MG TABLET PO SCH (10:23)
[2020-03-19] MEDS: hydrOXYzine PAMOATE 25 MG CAPSULE (FP) PO PRN (10:23)
[2020-03-19] MEDS: THIAMINE HCL 100 MG TABLET (FP) PO SCH (21:45)
[2020-03-19] MEDS: MELATONIN 5 MG TABLETS PO SCH (21:45)
[2020-03-20] MEDS ORDERED: METHADONE HCL 40 MG DISPERSABLE TABLET ONE (05:01)
[2020-03-20] MEDS ORDERED: METHADONE HCL 5 MG TABLET ONE (05:01)
[2020-03-20] MEDS: METHADONE 40 MG, METHADONE 5 MG PO SCH (06:35)
[2020-03-20] MEDS: PRENATAL VITAMINS W/ FOLIC ACID TABLET (FP) PO SCH (10:00)
[2020-03-20] MEDS: ESCITALOPRAM OXALATE 20 MG TABLET PO SCH (10:00)
[2020-03-20] MEDS: NICOTINE 7 MG/24 HOURS TOPICAL PATCH TD SCH (10:00)
[2020-03-20] MEDS: THIAMINE HCL 100 MG TABLET (FP) PO SCH (22:07)
[2020-03-20] MEDS: MELATONIN 5 MG TABLETS PO SCH (22:07)
[2020-03-21] MEDS ORDERED: METHADONE HCL 40 MG DISPERSABLE TABLET ONE (05:25)
[2020-03-21] MEDS ORDERED: METHADONE HCL 5 MG TABLET ONE (05:25)
[2020-03-21] MEDS: METHADONE 40 MG, METHADONE 5 MG PO SCH (06:39)
[2020-03-21] MEDS: NICOTINE 7 MG/24 HOURS TOPICAL PATCH TD SCH (10:17)
[2020-03-21] MEDS: ESCITALOPRAM OXALATE 20 MG TABLET PO SCH (10:17)
[2020-03-21] MEDS: PRENATAL VITAMINS W/ FOLIC ACID TABLET (FP) PO SCH (10:17)
[2020-03-21] MEDS: THIAMINE HCL 100 MG TABLET (FP) PO SCH (21:21)
[2020-03-21] MEDS: MELATONIN 5 MG TABLETS PO SCH (21:21)
[2020-03-22] MEDS ORDERED: METHADONE HCL 10 MG TABLET PO SCH (06:00)
[2020-03-22] MEDS ORDERED: METHADONE HCL 40 MG DISPERSABLE TABLET ONE (06:11)
[2020-03-22] MEDS ORDERED: METHADONE HCL 5 MG TABLET ONE (06:11)
[2020-03-22] MEDS: METHADONE 40 MG, METHADONE 5 MG PO SCH (06:34)
[2020-03-22] MEDS: ESCITALOPRAM OXALATE 10 MG TABLET PO SCH (09:48)
[2020-03-22] MEDS: NICOTINE 7 MG/24 HOURS TOPICAL PATCH TD SCH (09:49)
[2020-03-22] MEDS: PRENATAL VITAMINS W/ FOLIC ACID TABLET (FP) PO SCH (09:49)
[2020-03-22] MEDS: THIAMINE HCL 100 MG TABLET (FP) PO SCH (21:22)
[2020-03-22] MEDS: MELATONIN 5 MG TABLETS PO SCH (21:22)
[2020-03-23] MEDS ORDERED: METHADONE HCL 5 MG TABLET ONE (03:17)
[2020-03-23] MEDS ORDERED: METHADONE HCL 40 MG DISPERSABLE TABLET ONE (03:17)
[2020-03-23] MEDS: METHADONE 40 MG, METHADONE 5 MG PO SCH (06:30)
[2020-03-23] MEDS: PRENATAL VITAMINS W/ FOLIC ACID TABLET (FP) PO SCH (09:04)
[2020-03-23] MEDS: ESCITALOPRAM OXALATE 10 MG TABLET PO SCH (09:04)
[2020-03-23] MEDS: NICOTINE 7 MG/24 HOURS TOPICAL PATCH TD SCH (09:04)
[2020-03-23] MEDS: THIAMINE HCL 100 MG TABLET (FP) PO SCH (21:47)
[2020-03-23] MEDS: MELATONIN 5 MG TABLETS PO SCH (21:47)
[2020-03-24] MEDS ORDERED: METHADONE HCL 40 MG DISPERSABLE TABLET ONE (06:28)
[2020-03-24] MEDS ORDERED: METHADONE HCL 5 MG TABLET ONE (06:28)
[2020-03-24] MEDS: METHADONE 40 MG, METHADONE 5 MG PO SCH (06:40)
[2020-03-24] MEDS: PRENATAL VITAMINS W/ FOLIC ACID TABLET (FP) PO SCH (09:48)
[2020-03-24] MEDS: ESCITALOPRAM OXALATE 10 MG TABLET PO SCH (09:48)
[2020-03-24] MEDS: NICOTINE 7 MG/24 HOURS TOPICAL PATCH TD SCH (09:48)
[2020-03-24] MEDS: HYDROCORTISONE 1% TOPICAL OINT 30 GM TUBE TP SCH (21:25)
[2020-03-24] MEDS: MELATONIN 5 MG TABLETS PO SCH (21:25)
[2020-03-24] MEDS: THIAMINE HCL 100 MG TABLET (FP) PO SCH (21:25)
[2020-03-25] MEDS ORDERED: METHADONE HCL 5 MG TABLET ONE (03:15)
[2020-03-25] MEDS ORDERED: METHADONE HCL 40 MG DISPERSABLE TABLET ONE (03:15)
[2020-03-25] MEDS: METHADONE 40 MG, METHADONE 5 MG PO SCH (06:25)
[2020-03-25] MEDS: ESCITALOPRAM OXALATE 10 MG TABLET PO SCH (09:44)
[2020-03-25] MEDS: HYDROCORTISONE 1% TOPICAL OINT 30 GM TUBE TP SCH ×2 (09:44→21:28)
[2020-03-25] MEDS: PRENATAL VITAMINS W/ FOLIC ACID TABLET (FP) PO SCH (09:44)
[2020-03-25] MEDS: NICOTINE 7 MG/24 HOURS TOPICAL PATCH TD SCH (09:45)
[2020-03-25] MEDS: MELATONIN 5 MG TABLETS PO SCH (21:28)
[2020-03-25] MEDS: THIAMINE HCL 100 MG TABLET (FP) PO SCH (21:28)
[2020-03-26] MEDS ORDERED: METHADONE HCL 5 MG TABLET ONE (06:20)
[2020-03-26] MEDS ORDERED: METHADONE HCL 40 MG DISPERSABLE TABLET ONE (06:20)
[2020-03-26] MEDS: METHADONE 40 MG, METHADONE 5 MG PO SCH (06:43)
[2020-03-26] MEDS ORDERED: PT OWN MED DRAWER 7, Y5N ONE (09:18)
[2020-03-26] MEDS: PRENATAL VITAMINS W/ FOLIC ACID TABLET (FP) PO SCH (10:08)
[2020-03-26] MEDS: HYDROCORTISONE 1% TOPICAL OINT 30 GM TUBE TP SCH ×2 (10:08→21:24)
[2020-03-26] MEDS: ESCITALOPRAM OXALATE 10 MG TABLET PO SCH (10:08)
[2020-03-26] MEDS: NICOTINE 7 MG/24 HOURS TOPICAL PATCH TD SCH (10:08)
[2020-03-26] MEDS: MELATONIN 5 MG TABLETS PO SCH (21:24)
[2020-03-26] MEDS: THIAMINE HCL 100 MG TABLET (FP) PO SCH (21:24)
[2020-03-27] MEDS ORDERED: METHADONE HCL 5 MG TABLET ONE (05:45)
[2020-03-27] MEDS ORDERED: METHADONE HCL 40 MG DISPERSABLE TABLET ONE (05:46)
[2020-03-27] MEDS: METHADONE 40 MG, METHADONE 5 MG PO SCH (06:29)
[2020-03-27] MEDS: NICOTINE 7 MG/24 HOURS TOPICAL PATCH TD SCH (09:37)
[2020-03-27] MEDS: HYDROCORTISONE 1% TOPICAL OINT 30 GM TUBE TP SCH ×2 (09:37→21:13)
[2020-03-27] MEDS: ESCITALOPRAM OXALATE 10 MG TABLET PO SCH (09:38)
[2020-03-27] MEDS: PRENATAL VITAMINS W/ FOLIC ACID TABLET (FP) PO SCH (09:39)
[2020-03-27] MEDS: THIAMINE HCL 100 MG TABLET (FP) PO SCH (21:13)
[2020-03-27] MEDS: MELATONIN 5 MG TABLETS PO SCH (21:13)
[2020-03-28] MEDS ORDERED: METHADONE HCL 40 MG DISPERSABLE TABLET ONE (05:36)
[2020-03-28] MEDS ORDERED: METHADONE HCL 5 MG TABLET ONE (05:36)
[2020-03-28] MEDS: METHADONE 40 MG, METHADONE 5 MG PO SCH (06:06)
[2020-03-28] MEDS: NICOTINE 7 MG/24 HOURS TOPICAL PATCH TD SCH (09:39)
[2020-03-28] MEDS: ESCITALOPRAM OXALATE 10 MG TABLET PO SCH (09:39)
[2020-03-28] MEDS: HYDROCORTISONE 1% TOPICAL OINT 30 GM TUBE TP SCH ×2 (09:40→21:06)
[2020-03-28] MEDS: PRENATAL VITAMINS W/ FOLIC ACID TABLET (FP) PO SCH (09:40)
[2020-03-28] MEDS: THIAMINE HCL 100 MG TABLET (FP) PO SCH (21:06)
[2020-03-28] MEDS: MELATONIN 5 MG TABLETS PO SCH (21:06)
[2020-03-29] MEDS ORDERED: METHADONE HCL 40 MG DISPERSABLE TABLET ONE (06:04)
[2020-03-29] MEDS ORDERED: METHADONE HCL 5 MG TABLET ONE (06:04)
[2020-03-29] MEDS: METHADONE 40 MG, METHADONE 5 MG PO SCH (06:24)
[2020-03-29] MEDS: PRENATAL VITAMINS W/ FOLIC ACID TABLET (FP) PO SCH (09:41)
[2020-03-29] MEDS: ESCITALOPRAM OXALATE 10 MG TABLET PO SCH (09:41)
[2020-03-29] MEDS: NICOTINE 7 MG/24 HOURS TOPICAL PATCH TD SCH (09:41)
[2020-03-29] MEDS: HYDROCORTISONE 1% TOPICAL OINT 30 GM TUBE TP SCH ×2 (09:41→21:25)
[2020-03-29] MEDS: THIAMINE HCL 100 MG TABLET (FP) PO SCH (21:25)
[2020-03-29] MEDS: MELATONIN 5 MG TABLETS PO SCH (21:25)
[2020-03-30] MEDS ORDERED: METHADONE HCL 5 MG TABLET ONE (03:18)
[2020-03-30] MEDS ORDERED: METHADONE HCL 40 MG DISPERSABLE TABLET ONE (03:19)
[2020-03-30] MEDS: METHADONE 40 MG, METHADONE 5 MG PO SCH (06:11)
[2020-03-30] MEDS: NICOTINE 7 MG/24 HOURS TOPICAL PATCH TD SCH (09:43)
[2020-03-30] MEDS: HYDROCORTISONE 1% TOPICAL OINT 30 GM TUBE TP SCH ×2 (09:43→21:26)
[2020-03-30] MEDS: PRENATAL VITAMINS W/ FOLIC ACID TABLET (FP) PO SCH (09:43)
[2020-03-30] MEDS: ESCITALOPRAM OXALATE 10 MG TABLET PO SCH (09:43)
[2020-03-30] MEDS: MELATONIN 5 MG TABLETS PO SCH (21:26)
[2020-03-30] MEDS: THIAMINE HCL 100 MG TABLET (FP) PO SCH (21:26)
[2020-03-31] MEDS: METHADONE 40 MG, METHADONE 5 MG PO SCH (06:27)
[2020-03-31] MEDS ORDERED: METHADONE HCL 40 MG DISPERSABLE TABLET ONE (06:27)
[2020-03-31] MEDS ORDERED: METHADONE HCL 5 MG TABLET ONE (06:27)
[2020-03-31] MEDS: ESCITALOPRAM OXALATE 10 MG TABLET PO SCH (09:48)
[2020-03-31] MEDS: NICOTINE 7 MG/24 HOURS TOPICAL PATCH TD SCH (09:48)
[2020-03-31] MEDS: PRENATAL VITAMINS W/ FOLIC ACID TABLET (FP) PO SCH (09:48)
[2020-03-31] MEDS: HYDROCORTISONE 1% TOPICAL OINT 30 GM TUBE TP SCH ×2 (09:48→21:20)
[2020-03-31] MEDS: THIAMINE HCL 100 MG TABLET (FP) PO SCH (21:20)
[2020-03-31] MEDS: MELATONIN 5 MG TABLETS PO SCH (21:20)
[2020-04-01] MEDS ORDERED: METHADONE HCL 40 MG DISPERSABLE TABLET ONE (02:51)
[2020-04-01] MEDS ORDERED: METHADONE HCL 5 MG TABLET ONE (02:51)
[2020-04-01] MEDS: METHADONE 40 MG, METHADONE 5 MG PO SCH (06:22)
[2020-04-01] MEDS: NICOTINE 7 MG/24 HOURS TOPICAL PATCH TD SCH (09:41)
[2020-04-01] MEDS: ESCITALOPRAM OXALATE 10 MG TABLET PO SCH (09:41)
[2020-04-01] MEDS: PRENATAL VITAMINS W/ FOLIC ACID TABLET (FP) PO SCH (09:41)
[2020-04-01] MEDS: HYDROCORTISONE 1% TOPICAL OINT 30 GM TUBE TP SCH ×2 (09:41→21:21)
[2020-04-01] MEDS: MELATONIN 5 MG TABLETS PO SCH (21:21)
[2020-04-01] MEDS: THIAMINE HCL 100 MG TABLET (FP) PO SCH (21:21)
[2020-04-02] MEDS ORDERED: METHADONE HCL 40 MG DISPERSABLE TABLET ONE (03:04)
[2020-04-02] MEDS ORDERED: METHADONE HCL 5 MG TABLET ONE (03:04)
[2020-04-02] MEDS: METHADONE 40 MG, METHADONE 5 MG PO SCH (06:14)
[2020-04-02] MEDS ORDERED: PT OWN MED DRAWER 7, Y5N ONE ×2 (08:55→22:50)
[2020-04-02] MEDS: ESCITALOPRAM OXALATE 10 MG TABLET PO SCH (09:53)
[2020-04-02] MEDS: HYDROCORTISONE 1% TOPICAL OINT 30 GM TUBE TP SCH ×2 (09:53→21:22)
[2020-04-02] MEDS: NICOTINE 7 MG/24 HOURS TOPICAL PATCH TD SCH (09:53)
[2020-04-02] MEDS: PRENATAL VITAMINS W/ FOLIC ACID TABLET (FP) PO SCH (09:53)
[2020-04-02] MEDS: THIAMINE HCL 100 MG TABLET (FP) PO SCH (21:23)
[2020-04-02] MEDS: MELATONIN 5 MG TABLETS PO SCH (21:23)
[2020-04-03] MEDS ORDERED: METHADONE HCL 5 MG TABLET ONE (04:19)
[2020-04-03] MEDS ORDERED: METHADONE HCL 40 MG DISPERSABLE TABLET ONE (04:19)
[2020-04-03] MEDS: METHADONE 40 MG, METHADONE 5 MG PO SCH (06:17)
[2020-04-03] MEDS: PRENATAL VITAMINS W/ FOLIC ACID TABLET (FP) PO SCH (09:39)
[2020-04-03] MEDS: NICOTINE 7 MG/24 HOURS TOPICAL PATCH TD SCH (09:39)
[2020-04-03] MEDS: HYDROCORTISONE 1% TOPICAL OINT 30 GM TUBE TP SCH ×2 (09:39→22:20)
[2020-04-03] MEDS: ESCITALOPRAM OXALATE 10 MG TABLET PO SCH (09:39)
[2020-04-03] MEDS: THIAMINE HCL 100 MG TABLET (FP) PO SCH (22:20)
[2020-04-03] MEDS: MELATONIN 5 MG TABLETS PO SCH (22:20)
[2020-04-04] MEDS ORDERED: METHADONE HCL 40 MG DISPERSABLE TABLET ONE (05:48)
[2020-04-04] MEDS ORDERED: METHADONE HCL 5 MG TABLET ONE (05:48)
[2020-04-04] MEDS: METHADONE 40 MG, METHADONE 5 MG PO SCH (06:33)
[2020-04-04] MEDS: PRENATAL VITAMINS W/ FOLIC ACID TABLET (FP) PO SCH (09:42)
[2020-04-04] MEDS: ESCITALOPRAM OXALATE 10 MG TABLET PO SCH (09:42)
[2020-04-04] MEDS: HYDROCORTISONE 1% TOPICAL OINT 30 GM TUBE TP SCH ×2 (09:42→22:45)
[2020-04-04] MEDS: NICOTINE 7 MG/24 HOURS TOPICAL PATCH TD SCH (09:42)
[2020-04-04] MEDS: THIAMINE HCL 100 MG TABLET (FP) PO SCH (22:45)
[2020-04-04] MEDS: MELATONIN 5 MG TABLETS PO SCH (22:45)
[2020-04-05] MEDS ORDERED: METHADONE HCL 40 MG DISPERSABLE TABLET ONE (03:22)
[2020-04-05] MEDS ORDERED: METHADONE HCL 5 MG TABLET ONE (03:23)
[2020-04-05] MEDS: METHADONE 40 MG, METHADONE 5 MG PO SCH (06:43)
[2020-04-05] MEDS: ESCITALOPRAM OXALATE 10 MG TABLET PO SCH (10:29)
[2020-04-05] MEDS: HYDROCORTISONE 1% TOPICAL OINT 30 GM TUBE TP SCH ×2 (10:29→22:26)
[2020-04-05] MEDS: PRENATAL VITAMINS W/ FOLIC ACID TABLET (FP) PO SCH (10:29)
[2020-04-05] MEDS: NICOTINE 7 MG/24 HOURS TOPICAL PATCH TD SCH (10:29)
[2020-04-05] MEDS: MELATONIN 5 MG TABLETS PO SCH (22:26)
[2020-04-05] MEDS: THIAMINE HCL 100 MG TABLET (FP) PO SCH (22:26)
[2020-04-06] MEDS ORDERED: METHADONE HCL 40 MG DISPERSABLE TABLET ONE (03:51)
[2020-04-06] MEDS ORDERED: METHADONE HCL 5 MG TABLET ONE (03:52)
[2020-04-06] MEDS: METHADONE 40 MG, METHADONE 5 MG PO SCH (06:37)
[2020-04-06] MEDS: HYDROCORTISONE 1% TOPICAL OINT 30 GM TUBE TP SCH ×2 (09:58→21:15)
[2020-04-06] MEDS: PRENATAL VITAMINS W/ FOLIC ACID TABLET (FP) PO SCH (09:58)
[2020-04-06] MEDS: ESCITALOPRAM OXALATE 10 MG TABLET PO SCH (09:58)
[2020-04-06] MEDS: NICOTINE 7 MG/24 HOURS TOPICAL PATCH TD SCH (09:58)
[2020-04-06] MEDS: THIAMINE HCL 100 MG TABLET (FP) PO SCH (21:15)
[2020-04-06] MEDS: MELATONIN 5 MG TABLETS PO SCH (21:15)
[2020-04-07] MEDS ORDERED: METHADONE HCL 40 MG DISPERSABLE TABLET ONE (04:55)
[2020-04-07] MEDS ORDERED: METHADONE HCL 5 MG TABLET ONE (04:56)
[2020-04-07] MEDS: METHADONE 40 MG, METHADONE 5 MG PO SCH (06:41)
[2020-04-07 08:38] VITALS: BP 100/64; PULSE 67; TEMP 97.7
[2020-04-07] MEDS ORDERED: MASKS NR ONE (09:32)
[2020-04-07] MEDS: PRENATAL VITAMINS W/ FOLIC ACID TABLET (FP) PO SCH (09:35)
[2020-04-07] MEDS: ESCITALOPRAM OXALATE 10 MG TABLET PO SCH (09:35)
== END 2020-04-07 09:36 | disposition home or self-care (01) | DRG 772 ==
LOC: YASAS 11:41 → Y3W 11:42 → Y3E 03-21 11:51 → Y3W 04-03 16:30
PROVIDERS: ADMIT Allergy & Immunology; ATTEND Allergy & Immunology
PROC: HZ42ZZZ Group Counseling for Substance Abuse Treatment, Cognitive-Behavioral (ICD-10-PCS; principal; 2020-03-15)
DX: F10.20 Alcohol dependence, uncomplicated (principal); F11.20 Opioid dependence, uncomplicated; F14.20 Cocaine dependence, uncomplicated; F12.20 Cannabis dependence, uncomplicated; F17.210 Nicotine dependence, cigarettes, uncomplicated; F60.3 Borderline personality disorder; Z21 Asymptomatic human immunodeficiency virus [HIV] infection status; L29.9 Pruritus, unspecified; R21 Rash and other nonspecific skin eruption; Z86.19 Personal history of other infectious and parasitic diseases; Z87.42 Personal history of other diseases of the female genital tract

== ENCOUNTER 2020-05-28 14:38 | Inpatient (IN) | payer OTHER ==
[2020-05-28 15:54] VITALS: BMI 24.0
[2020-05-28] MEDS ORDERED: METHOCARBAMOL 500 MG TABLET PO PRN (15:59)
[2020-05-28] MEDS ORDERED: MAGNESIUM HYDROX 2400MG/30ML ORAL SUSPENSION 30 ML CUP PO PRN (15:59)
[2020-05-28] MEDS ORDERED: chlordiazePOXIDE HCL 25 MG CAPSULE PO PRN (15:59)
[2020-05-28] MEDS ORDERED: BISMUTH SUBSALICYLATE 524 MG/30 ML UD PO PRN (15:59)
[2020-05-28] MEDS ORDERED: MAG HYDROX/AL HYDROX/SIMETH 30 ML UNIT-DOSE CUP PO PRN (15:59)
[2020-05-28] MEDS ORDERED: METHADONE HCL 10 MG TABLET (FOR DETOX USE ONLY) PO ONE (15:59)
[2020-05-28] MEDS ORDERED: IBUPROFEN 400 MG TABLET (FP) PO PRN (15:59)
[2020-05-28] MEDS ORDERED: ACETAMINOPHEN 325 MG TABLET (FP) PO PRN (15:59)
[2020-05-28] MEDS ORDERED: MAGNESIUM CITRATE 300 ML BOTTLE PO PRN (15:59)
[2020-05-28] MEDS ORDERED: MENTHOL/PHENOL 1 EACH UD MM PRN (15:59)
[2020-05-28] MEDS ORDERED: ONDANSETRON *ODT* 4 MG TABLET SL PRN (15:59)
[2020-05-28] MEDS ORDERED: cloNIDine HCL 0.1 MG TABLET PO PRN (15:59)
[2020-05-28] MEDS: chlordiazePOXIDE HCL 25 MG CAPSULE PO SCH ×2 (17:53→22:12)
[2020-05-28] MEDS: PETROLATUM, WHITE 30 GM TUBE TP SCH (17:54)
[2020-05-28] MEDS: ACETAMINOPHEN 325 MG TABLET (FP) PO PRN (17:54)
[2020-05-28] MEDS: hydrOXYzine PAMOATE 25 MG CAPSULE (FP) PO SCH ×2 (17:55→22:12)
[2020-05-28] MEDS: AMMONIUM LACTATE 12% LOTION 225 GM BOTTLE TP SCH (22:11)
[2020-05-28] MEDS: MELATONIN 5 MG TABLETS PO SCH (22:12)
[2020-05-28] MEDS: THIAMINE HCL 100 MG TABLET (FP) PO SCH (22:12)
[2020-05-29] MEDS: hydrOXYzine PAMOATE 25 MG CAPSULE (FP) PO SCH ×5 (05:21→22:20)
[2020-05-29] MEDS: chlordiazePOXIDE HCL 25 MG CAPSULE PO SCH ×4 (05:22→22:20)
[2020-05-29] MEDS ORDERED: METHADONE HCL 10 MG TABLET (FOR DETOX USE ONLY) ONE (09:13)
[2020-05-29] MEDS ORDERED: METHADONE HCL 5 MG TABLET (FOR DETOX USE ONLY) ONE (09:14)
[2020-05-29 09:47] LABS: POTASSIUM 4.4 mmol/L (3.5-5.1)
[2020-05-29 09:51] LABS: HEMATOCRIT 33.7 % (32.4-45.2); HEMOGLOBIN 11.3 GM/dL (10.7-15.3); MCH 30.2 pg (25.7-33.7); MCHC 33.7 g/dl (32.0-36.0); MEAN CELL VOLUME 89.6 fl (80-96); MEAN PLT VOLUME 9.3 fl (7.5-11.1); PLATELET COUNT 189 K/MM3 (134-434); RBC 3.76 M/mm3 (3.60-5.2); RDW 15.6 % (11.6-15.6)
[2020-05-29] MEDS ORDERED: METHADONE (DETOX) 20 MG, METHADONE (DETOX) 5 MG PO ONE (10:00)
[2020-05-29] MEDS: SULFAMETHOXAZOLE/TRIMETHOPRIM 800MG/160MG D.S. TABLET PO SCH ×2 (10:07→22:20)
[2020-05-29] MEDS: PRENATAL VITAMINS W/ FOLIC ACID TABLET (FP) PO SCH (10:08)
[2020-05-29] MEDS: PETROLATUM, WHITE 30 GM TUBE TP SCH (10:20)
[2020-05-29 10:24] LABS: ALBUMIN 2.8 g/dl (3.4-5.0); BLOOD UREA NITROGEN 13.4 mg/dL (7-18); CALCIUM 8.8 mg/dL (8.5-10.1)
[2020-05-29 10:27] LABS: CREATININE 0.9 mg/dL (0.55-1.3)
[2020-05-29 10:28] LABS: BILIRUBIN,TOTAL 0.4 mg/dL (0.2-1)
[2020-05-29 10:29] LABS: TOT PROT 9.4 g/dl (6.4-8.2)
[2020-05-29] MEDS: AMMONIUM LACTATE 12% LOTION 225 GM BOTTLE TP SCH (17:42)
[2020-05-29] MEDS: THIAMINE HCL 100 MG TABLET (FP) PO SCH (22:20)
[2020-05-29] MEDS: MELATONIN 5 MG TABLETS PO SCH (22:20)
[2020-05-30] MEDS: hydrOXYzine PAMOATE 25 MG CAPSULE (FP) PO SCH ×3 (05:21→14:50)
[2020-05-30] MEDS: chlordiazePOXIDE HCL 25 MG CAPSULE PO SCH ×2 (05:22→10:07)
[2020-05-30] MEDS ORDERED: METHADONE HCL 10 MG TABLET (FOR DETOX USE ONLY) PO ONE (10:00)
[2020-05-30] MEDS: SULFAMETHOXAZOLE/TRIMETHOPRIM 800MG/160MG D.S. TABLET PO SCH (10:06)
[2020-05-30] MEDS: PRENATAL VITAMINS W/ FOLIC ACID TABLET (FP) PO SCH (10:06)
[2020-05-30] MEDS: PETROLATUM, WHITE 30 GM TUBE TP SCH (10:07)
[2020-05-30] MEDS: ACETAMINOPHEN 325 MG TABLET (FP) PO PRN (14:50)
[2020-05-30 17:18] VITALS: BP 107/70; PULSE 81; TEMP 96.6
[2020-05-31] MEDS ORDERED: chlordiazePOXIDE HCL 10 MG CAPSULE PO PRN
[2020-05-31] MEDS ORDERED: chlordiazePOXIDE HCL 10 MG CAPSULE PO SCH (05:00)
[2020-05-31] MEDS ORDERED: METHADONE (DETOX) 10 MG, METHADONE (DETOX) 5 MG PO ONE (10:00)
[2020-06-01] MEDS ORDERED: chlordiazePOXIDE HCL 10 MG CAPSULE PO SCH (05:00)
[2020-06-01] MEDS ORDERED: METHADONE HCL 10 MG TABLET (FOR DETOX USE ONLY) PO ONE (10:00)
[2020-06-02] MEDS ORDERED: chlordiazePOXIDE HCL 10 MG CAPSULE PO ONE (05:00)
[2020-06-02] MEDS ORDERED: METHADONE HCL 5 MG TABLET (FOR DETOX USE ONLY) PO ONE (06:00)
== END 2020-05-30 18:08 | disposition left against medical advice (07) | DRG 770 ==
LOC: YASAS 14:38 → Y3N 15:51
PROVIDERS: ADMIT Allergy & Immunology; ATTEND Allergy & Immunology
PROC: HZ2ZZZZ Detoxification Services for Substance Abuse Treatment (ICD-10-PCS; principal; 2020-05-28)
DX: F11.23 Opioid dependence with withdrawal (principal); F10.230 Alcohol dependence with withdrawal, uncomplicated; F14.20 Cocaine dependence, uncomplicated; F12.20 Cannabis dependence, uncomplicated; F17.210 Nicotine dependence, cigarettes, uncomplicated; F60.3 Borderline personality disorder; F32.9 Major depressive disorder, single episode, unspecified; Z21 Asymptomatic human immunodeficiency virus [HIV] infection status; B18.2 Chronic viral hepatitis C; L02.512 Cutaneous abscess of left hand
CPT/HCPCS: 36415; 80053; 85027; 86780; C9803; U0003

== ENCOUNTER 2021-03-12 10:16 | Inpatient (IN) | payer OTHER ==
[2021-03-12] MEDS ORDERED: ACETAMINOPHEN 325 MG TABLET (FP) PO PRN ×2 (11:09)
[2021-03-12] MEDS ORDERED: chlordiazePOXIDE HCL 25 MG CAPSULE PO PRN (11:09)
[2021-03-12] MEDS ORDERED: MAGNESIUM CITRATE 300 ML BOTTLE PO PRN (11:09)
[2021-03-12] MEDS ORDERED: MENTHOL/PHENOL 1 EACH UD MM PRN (11:09)
[2021-03-12] MEDS ORDERED: cloNIDine HCL 0.1 MG TABLET PO PRN (11:09)
[2021-03-12] MEDS ORDERED: MAG HYDROX/AL HYDROX/SIMETH 30 ML UNIT-DOSE CUP PO PRN (11:09)
[2021-03-12] MEDS ORDERED: methaDONE HCL 10 MG TABLET (FOR DETOX USE ONLY) PO ONE (11:09)
[2021-03-12] MEDS ORDERED: IBUPROFEN 400 MG TABLET (FP) PO PRN (11:09)
[2021-03-12] MEDS ORDERED: NICOTINE 10 MG CARTRIDGE (INHALER) IH PRN (11:09)
[2021-03-12] MEDS ORDERED: MAGNESIUM HYDROX 2400MG/30ML ORAL SUSPENSION 30 ML CUP PO PRN (11:09)
[2021-03-12] MEDS ORDERED: BISMUTH SUBSALICYLATE 262 MG/15 ML BTL PO PRN (11:09)
[2021-03-12] MEDS ORDERED: ONDANSETRON *ODT* 4 MG TABLET SL PRN (11:09)
[2021-03-12 12:03] VITALS: BMI 18.1
[2021-03-12] MEDS: chlordiazePOXIDE HCL 25 MG CAPSULE PO SCH ×3 (12:51→22:39)
[2021-03-12] MEDS: hydrOXYzine PAMOATE 25 MG CAPSULE (FP) PO SCH ×3 (13:22→22:39)
[2021-03-12] MEDS: MELATONIN 5 MG TABLETS PO SCH (22:39)
[2021-03-12] MEDS: THIAMINE HCL 100 MG TABLET (FP) PO SCH (22:39)
[2021-03-13] MEDS: hydrOXYzine PAMOATE 25 MG CAPSULE (FP) PO SCH ×5 (06:03→22:52)
[2021-03-13] MEDS: chlordiazePOXIDE HCL 25 MG CAPSULE PO SCH ×4 (06:03→22:52)
[2021-03-13] MEDS ORDERED: methaDONE HCL 10 MG TABLET (FOR DETOX USE ONLY) ONE (09:35)
[2021-03-13] MEDS: ESCITALOPRAM OXALATE 10 MG TABLET PO SCH (10:49)
[2021-03-13] MEDS: PRENATAL VITAMINS W/ FOLIC ACID TABLET (FP) PO SCH (10:50)
[2021-03-13 11:49] LABS: HEMATOCRIT 35.7 % (32.4-45.2); HEMOGLOBIN 11.7 GM/dL (10.7-15.3); MCH 30.4 pg (25.7-33.7); MCHC 32.7 g/dl (32.0-36.0); MEAN PLT VOLUME 9.8 fl (7.5-11.1); PLATELET COUNT 167 10^3/uL (134-434); RBC 3.84 M/mm3 (3.60-5.2); RDW 18.8 % (11.6-15.6); WHITE BLOOD COUNT 4.6 K/mm3 (4.0-10.0)
[2021-03-13 11:57] LABS: ALBUMIN 2.7 g/dl (3.4-5.0)
[2021-03-13 11:58] LABS: BLOOD UREA NITROGEN 12.1 mg/dL (7-18)
[2021-03-13 12:00] LABS: CREATININE 0.9 mg/dL (0.55-1.3)
[2021-03-13 12:02] LABS: BILIRUBIN,TOTAL 0.7 mg/dL (0.2-1); TOT PROT 7.7 g/dl (6.4-8.2)
[2021-03-13] MEDS ORDERED: FLU VACC QS2021-22(6MOS UP)/PF 60 MCG/0.5 ML SYRINGE IM ONE (12:36)
[2021-03-13] MEDS: MELATONIN 5 MG TABLETS PO SCH (22:52)
[2021-03-13] MEDS: THIAMINE HCL 100 MG TABLET (FP) PO SCH (22:52)
[2021-03-14] MEDS: chlordiazePOXIDE HCL 25 MG CAPSULE PO SCH ×4 (06:24→22:24)
[2021-03-14] MEDS: hydrOXYzine PAMOATE 25 MG CAPSULE (FP) PO SCH ×5 (06:27→22:24)
[2021-03-14] MEDS ORDERED: methaDONE HCL 10 MG TABLET (FOR DETOX USE ONLY) PO ONE (10:00)
[2021-03-14] MEDS ORDERED: FERROUS SO4 325 MG TABLET (FP) PO SCH (10:00)
[2021-03-14] MEDS: PRENATAL VITAMINS W/ FOLIC ACID TABLET (FP) PO SCH (10:12)
[2021-03-14] MEDS: ESCITALOPRAM OXALATE 10 MG TABLET PO SCH (10:12)
[2021-03-14] MEDS: THIAMINE HCL 100 MG TABLET (FP) PO SCH (22:23)
[2021-03-14] MEDS: MELATONIN 5 MG TABLETS PO SCH (22:25)
[2021-03-15] MEDS ORDERED: chlordiazePOXIDE HCL 10 MG CAPSULE PO PRN
[2021-03-15] MEDS: hydrOXYzine PAMOATE 25 MG CAPSULE (FP) PO SCH ×2 (05:59→10:42)
[2021-03-15] MEDS: chlordiazePOXIDE HCL 10 MG CAPSULE PO SCH ×2 (06:00→10:42)
[2021-03-15] MEDS ORDERED: methaDONE HCL 10 MG TABLET (FOR DETOX USE ONLY) ONE (09:11)
[2021-03-15] MEDS: PRENATAL VITAMINS W/ FOLIC ACID TABLET (FP) PO SCH (10:41)
[2021-03-15] MEDS: METHOCARBAMOL 500 MG TABLET PO PRN ×2 (10:41→21:50)
[2021-03-15] MEDS: ESCITALOPRAM OXALATE 10 MG TABLET PO SCH (10:41)
[2021-03-15] MEDS ORDERED: hydrOXYzine PAMOATE 25 MG CAPSULE (FP) PO PRN (12:10)
[2021-03-15] MEDS: THIAMINE HCL 100 MG TABLET (FP) PO SCH (21:50)
[2021-03-15] MEDS: MELATONIN 5 MG TABLETS PO SCH (21:52)
[2021-03-15] MEDS ORDERED: chlordiazePOXIDE HCL 10 MG CAPSULE PO SCH (22:00)
[2021-03-16] MEDS ORDERED: chlordiazePOXIDE HCL 10 MG CAPSULE PO SCH (05:00)
[2021-03-16] MEDS ORDERED: methaDONE HCL 10 MG TABLET (FOR DETOX USE ONLY) PO ONE (10:00)
[2021-03-16] MEDS: PRENATAL VITAMINS W/ FOLIC ACID TABLET (FP) PO SCH (10:22)
[2021-03-16] MEDS: ESCITALOPRAM OXALATE 10 MG TABLET PO SCH (10:22)
[2021-03-16] MEDS ORDERED: chlordiazePOXIDE 5 MG CAPSULE PO SCH (17:00)
[2021-03-16] MEDS: THIAMINE HCL 100 MG TABLET (FP) PO SCH (23:13)
[2021-03-16] MEDS: MELATONIN 5 MG TABLETS PO SCH (23:14)
[2021-03-17] MEDS ORDERED: chlordiazePOXIDE 5 MG CAPSULE PO ONE (05:00)
[2021-03-17] MEDS ORDERED: chlordiazePOXIDE HCL 10 MG CAPSULE PO ONE (05:00)
[2021-03-17] MEDS: ESCITALOPRAM OXALATE 10 MG TABLET PO SCH (10:38)
[2021-03-17] MEDS: PRENATAL VITAMINS W/ FOLIC ACID TABLET (FP) PO SCH (10:38)
[2021-03-17 11:18] VITALS: BP 84/55; PULSE 77; TEMP 97
== END 2021-03-17 13:14 | disposition other institution (70) | DRG 773 ==
LOC: YASAS 10:16 → Y6N 11:30
PROVIDERS: ADMIT Allergy & Immunology; ATTEND Allergy & Immunology
PROC: HZ2ZZZZ Detoxification Services for Substance Abuse Treatment (ICD-10-PCS; principal; 2021-03-12)
DX: F11.23 Opioid dependence with withdrawal (principal); F10.230 Alcohol dependence with withdrawal, uncomplicated; F10.220 Alcohol dependence with intoxication, uncomplicated; F12.20 Cannabis dependence, uncomplicated; F17.213 Nicotine dependence, cigarettes, with withdrawal; F32.1 Major depressive disorder, single episode, moderate; F19.282 Other psychoactive substance dependence with psychoactive substance-induced sleep disorder; F60.3 Borderline personality disorder; Z21 Asymptomatic human immunodeficiency virus [HIV] infection status; Z74.01 Bed confinement status; G47.00 Insomnia, unspecified; Z87.42 Personal history of other diseases of the female genital tract; Z91.14 Patient's other noncompliance with medication regimen; Z56.0 Unemployment, unspecified
CPT/HCPCS: 36415; 80053; 85027; 86780; 90686; C9803; G0008; U0003; U0005

== ENCOUNTER 2021-03-17 13:24 | Inpatient (IN) | payer OTHER ==
[2021-03-17] MEDS ORDERED: ACETAMINOPHEN 325 MG TABLET (FP) PO PRN (15:42)
[2021-03-17] MEDS ORDERED: MAGNESIUM HYDROX 2400MG/30ML ORAL SUSPENSION 30 ML CUP PO PRN (15:42)
[2021-03-17] MEDS ORDERED: MAGNESIUM CITRATE 300 ML BOTTLE PO PRN (15:42)
[2021-03-17] MEDS ORDERED: MENTHOL/PHENOL 1 EACH UD MM PRN (15:42)
[2021-03-17] MEDS ORDERED: LOPERAMIDE HCL 2 MG CAPSULE PO PRN (15:42)
[2021-03-17] MEDS ORDERED: IBUPROFEN 400 MG TABLET (FP) PO PRN (15:42)
[2021-03-17] MEDS ORDERED: NICOTINE 10 MG CARTRIDGE (INHALER) IH PRN (15:42)
[2021-03-17] MEDS ORDERED: MAG HYDROX/AL HYDROX/SIMETH 30 ML UNIT-DOSE CUP PO PRN (15:42)
[2021-03-17] MEDS ORDERED: P-EPHED 60MG/TRIPROLIDI 2.5MG TABLET PO PRN (15:42)
[2021-03-17] MEDS ORDERED: guaiFENesin 200 MG/10 ML 10 ML UNIT-DOSE CUPS PO PRN (15:42)
[2021-03-17] MEDS: hydrOXYzine PAMOATE 25 MG CAPSULE (FP) PO PRN (21:50)
[2021-03-17] MEDS ORDERED: THIAMINE HCL 100 MG TABLET (FP) PO SCH (22:00)
[2021-03-17] MEDS ORDERED: MELATONIN 5 MG TABLETS PO SCH (22:00)
[2021-03-18 07:30] VITALS: BP 92/62; PULSE 69; TEMP 97.1
[2021-03-18] MEDS ORDERED: NICOTINE 7 MG/24 HOURS TOPICAL PATCH TD SCH (10:00)
[2021-03-18] MEDS ORDERED: BICTEGRAV/EMTRICIT/TENOFOV (BIKTARVY) 50-200-25 MG TABLET PO SCH (10:00)
[2021-03-18] MEDS ORDERED: PRENATAL VITAMINS W/ FOLIC ACID TABLET (FP) PO SCH (10:00)
[2021-03-18] MEDS ORDERED: ESCITALOPRAM OXALATE 10 MG TABLET PO SCH (10:00)
[2021-03-18] MEDS: hydrOXYzine PAMOATE 25 MG CAPSULE (FP) PO PRN (10:22)
== END 2021-03-18 12:20 | disposition left against medical advice (07) | DRG 770 ==
LOC: YASAS 13:24 → Y5N 13:26
PROVIDERS: ADMIT Allergy & Immunology; ATTEND Allergy & Immunology
PROC: HZ42ZZZ Group Counseling for Substance Abuse Treatment, Cognitive-Behavioral (ICD-10-PCS; principal; 2021-03-17)
DX: F11.20 Opioid dependence, uncomplicated (principal); F10.20 Alcohol dependence, uncomplicated; F12.20 Cannabis dependence, uncomplicated; F17.210 Nicotine dependence, cigarettes, uncomplicated; F19.282 Other psychoactive substance dependence with psychoactive substance-induced sleep disorder; B18.2 Chronic viral hepatitis C; Z21 Asymptomatic human immunodeficiency virus [HIV] infection status; Z56.0 Unemployment, unspecified; Z91.14 Patient's other noncompliance with medication regimen